=== PATIENT | female | born 1980 | race Caucasian/White ===

== ENCOUNTER 2017-08-05 12:35 | Emergency (ER) | payer MEDICAID, SELFPAY ==
[2017-08-05 13:21] VITALS: BP 113/76; PULSE 85; RESP 18; TEMP 36.9; O2SAT 100; BMI 22.8
--- NOTE | 2017-08-05 13:27 | HMH.EDUTC ---
[facility] [place]ression: Sinusitis Qualifiers: Sinusitis location: other Chronicity: unspecified Qualified Code(s): J32.9 - Chronic sinusitis, unspecified Disposition: Home, Self-Care Condition on Discharge: Good Instructions: Sinusitis, Sinus Headache, DI for Sinusitis Additional Instructions: Start antibiotic. Sinus infections may take 2-3 days to notice much improvement so be sure to use conservative measures as discussed for symptoms Flonase 2 spray in each nostril daily to help with nasal congestion, sinus an ear pressure/inflammation Lots of Fluids Sleep elevated Humidifer/vaporizer Augmentin can cause GI effects. Probiotics may help to prevent these symptoms Prescriptions: Amoxicillin/Potassium Clav [Augmentin 875-125 Tablet] 1 tab PO Q12H #14 tab Dextromethorphan Polistirex [Delsym] 10 mg PO Q12 PRN #200 [place].er.12h PRN Reason: Cough Fluticasone Propionate [Flonase 50mcg nasal spray 16gm] 2 spr NS DAILY #1 bottle predniSONE [Prednisone 20mg Tab] 20 mg PO BID #10 tab Referrals: Elton Silva MD [Primary Care Provider] - Time of Disposition: 13:42 Medical Decision Making Vital Signs: 08/05/17 13:21 Temperature 98.5 F Temperature Source Temporal Artery Scan Pulse Rate [Right Radial] 85 Respiratory Rate 18 Blood Pressure [Right Arm] 113/76 Blood Pressure Mean [Right Arm] 88 Blood Pressure Source [Right Arm] Automatic Cuff Blood Pressure Position [Right Arm] Sitting 02 Sat by Pulse Oximetry 100 Oxygen Delivery Method Room Air - Tc Inquiry Pt receiving controlled substance: No Tc was queried for this patient: No [facility] [place] - General Stated complaint: possible flu Mode of Arrival: Family Vehicle Source of Information: Patient Limitations: No Limitations Description of Symptoms (Recalled from Triage Doc. by RN): PT HAS CHEST CONGESTION, COUGH, STOPPED UP NOSE, ACHES FOR 3 DAYS. HEENT Symptoms (Recalled from RN notes): Yes (COUGH,STOPPED UP NOSE) Resp Symptoms (Recalled from RN notes): Yes (CHEST CONGESTION) Skin Symptoms (Recalled from RN notes): No MS Symptoms (Recalled from RN notes): No Functional Status (Recalled from RN notes): NA - History of Present Illness Provider Complaint: Patient states that she has been having cough and sinus pain and pressure State that she is having thick yellow mucous from nose State that she feels swollen and puffy under her eyes State that she had this about a month ago and it got better then it came back and it is worse than it was before - Related Data Home Medications Medication Instructions Recorded Confirmed Vit No.126/Iron/FA 1 mg PO DAILY 08/05/17 08/05/17 [Classic Tablet] Previous Rx's Medication Instructions Recorded Amoxicillin/Potassium Clav 1 tab PO Q12H #14 tab 08/05/17 [Augmentin 875-125 Tablet] Dextromethorphan Polistirex 10 mg PO Q12 PRN #200 [place].er.12h 08/05/17 [Delsym] Fluticasone Propionate [Flonase 2 spr NS DAILY #1 bottle 08/05/17 50mcg nasal spray 16gm] predniSONE [Prednisone 20mg 20 mg PO BID #10 tab 08/05/17 Tab] Allergies Allergy/AdvReac Type Severity Reaction Status Date / Time No Known Allergies Allergy Verified 08/05/17 13:25 - Worker's Comp Is this a Worker's Comp case?: No [facility] History I have reviewed the patient's past medical history: Yes Medical History: Denies:: Cancer, MRSA Amputation: No - *Social History Smoking Status: Current every day smoker Tobacco Type: cigarettes Alcohol Intake: never - Psychiatric History Expresses thoughts of harming self/others: None Suicide Plan Description: No Plan ROS Obtained: Yes All systems reviewed & no additional complaints - Constitutional Constitutional: Reports chills - ENT Ears, Nose, Mouth, and Throat: Reports sinus pain, Reports sinus pressure - Respiratory Respiratory: Yes cough Physical Exam - General General appearance: alert, in no apparent distress - Expande
[2017-08-05 13:30] LABS: UTC Influenza A Antigen Negative (Negative); UTC Influenza B Antigen Negative (Negative)
--- NOTE | 2017-08-05 13:37 | ED_ITS ---
[facility] [place] Disposition Clinical Impression: Sinusitis Qualifiers: Sinusitis location: other Chronicity: unspecified Qualified Code(s): J32.9 - Chronic sinusitis, unspecified Disposition: Home, Self-Care Condition on Discharge: Good Instructions: Sinusitis, Sinus Headache, DI for Sinusitis Additional Instructions: Start antibiotic. Sinus infections may take 2-3 days to notice much improvement so be sure to use conservative measures as discussed for symptoms Flonase 2 spray in each nostril daily to help with nasal congestion, sinus an ear pressure/inflammation Lots of Fluids Sleep elevated Humidifer/vaporizer Augmentin can cause GI effects. Probiotics may help to prevent these symptoms Prescriptions: Amoxicillin/Potassium Clav [Augmentin 875-125 Tablet] 1 tab PO Q12H #14 tab Dextromethorphan Polistirex [Delsym] 10 mg PO Q12 PRN #200 [place].er.12h PRN Reason: Cough Fluticasone Propionate [Flonase 50mcg nasal spray 16gm] 2 spr NS DAILY #1 bottle predniSONE [Prednisone 20mg Tab] 20 mg PO BID #10 tab Referrals: Elton Silva MD [Primary Care Provider] - Time of Disposition: 13:42 Medical Decision Making Vital Signs: 08/05/17 13:21 Temperature 98.5 F Temperature Source Temporal Artery Scan Pulse Rate [Right Radial] 85 Respiratory Rate 18 Blood Pressure [Right Arm] 113/76 Blood Pressure Mean [Right Arm] 88 Blood Pressure Source [Right Arm] Automatic Cuff Blood Pressure Position [Right Arm] Sitting 02 Sat by Pulse Oximetry 100 Oxygen Delivery Method Room Air - Tc Inquiry Pt receiving controlled substance: No Tc was queried for this patient: No [facility] [place] HPI - General Stated complaint: possible flu Mode of Arrival: Family Vehicle Source of Information: Patient Limitations: No Limitations Description of Symptoms (Recalled from Triage Doc. by RN): PT HAS CHEST CONGESTION, COUGH, STOPPED UP NOSE, ACHES FOR 3 DAYS. HEENT Symptoms (Recalled from RN notes): Yes (COUGH,STOPPED UP NOSE) Resp Symptoms (Recalled from RN notes): Yes (CHEST CONGESTION) Skin Symptoms (Recalled from RN notes): No MS Symptoms (Recalled from RN notes): No Functional Status (Recalled from RN notes): NA - History of Present Illness Provider Complaint: Patient states that she has been having cough and sinus pain and pressure State that she is having thick yellow mucous from nose State that she feels swollen and puffy under her eyes State that she had this about a month ago and it got better then it came back and it is worse than it was before - Related Data Home Medications Medication Instructions Recorded Confirmed Vit No.126/Iron/FA 1 mg PO DAILY 08/05/17 08/05/17 [Classic Tablet] Previous Rx's Medication Instructions Recorded Amoxicillin/Potassium Clav 1 tab PO Q12H #14 tab 08/05/17 [Augmentin 875-125 Tablet] Dextromethorphan Polistirex 10 mg PO Q12 PRN #200 [place].er.12h 08/05/17 [Delsym] Fluticasone Propionate [Flonase 2 spr NS DAILY #1 bottle 08/05/17 50mcg nasal spray 16gm] predniSONE [Prednisone 20mg 20 mg PO BID #10 tab 08/05/17 Tab] Allergies Allergy/AdvReac Type Severity Reaction Status Date / Time No Known Allergies Allergy Verified 08/05/17 13:25 - Worker's Comp Is this a Worker's Comp case?: No H History I have reviewed the
== END 2017-08-05 13:56 | disposition home or self-care (01) ==
PROVIDERS: Emergency Provider Nurse Practitioner; Family Provider Family Medicine; PCP Internal Medicine Adolescent Medicine
DX: J32.9 Chronic sinusitis, unspecified (principal)
CPT/HCPCS: 87804; 99202

== ENCOUNTER → 2017-08-16 15:08 | Outpatient (REF) | payer MEDICAID, SELFPAY ==
[2017-08-16 17:41] LABS: Basophils % 0.4 % (0.1-2.0); Eosinophils # 0.2 K/mm3 (0.0-0.4); Eosinophils % 2.3 % (0.1-12.0); Hematocrit 44.3 % (37.0-47.0); Hemoglobin 13.8 g/dL (12.2-16.2); Lymphocytes # 2.2 K/mm3 (0.7-4.5); Lymphocytes % 25.6 K/mm3 (10-50); Mean Corpuscular HGB Conc 31.1 g/dL (31.8-35.4); Mean Corpuscular Volume 102.8 fl (81-99); Mean Platelet Volume 7.9 fl (7.4-10.4); Monocytes # 0.3 K/mm3 (0.1-1.0); Monocytes % 3.9 % (1.7-9.3); Neutrophils # 5.8 K/mm3 (1.8-7.8); Neutrophils % 67.8 % (37.0-80.0); Platelet Count 305 K/mm3 (142-424); Red Blood Count 4.31 M/mm3 (4.20-5.40); Red Cell Distribution Width 13.1 % (11.5-17.5); White Blood Count 8.6 K/mm3 (4.8-10.8)
[2017-08-16 18:10] LABS: Alanine Aminotransferase 31 U/L (12-78); Albumin Level 3.5 gm/dL (3.4-5.0); Albumin/Globulin Ratio 1.1 (1.1-1.8); Alkaline Phosphatase 73 U/L (46-116); Anion Gap 10.9 mEq/L (5-15); Aspartate Amino Transferase 15 U/L (15-37); Bilirubin,Total 0.3 mg/dL (0.2-1.0); Blood Urea Nitrogen 11 mg/dL (7-18); Calcium 8.5 mg/dL (8.5-10.1); Carbon Dioxide 29 mmol/L (21.0-32.0); Chloride 104 mmol/L (98-107); Chol/HDL Ratio 3.3 (1-3.5); Cholesterol 182 mg/dL (140-200); Creatinine,Serum 0.67 mg/dL (0.55-1.02); Estimated Glomerular Filt Rate 99 ml/min (>60); GFR (African American) 120 ML/MIN (>60); Globulin 3.1 gm/dl (1.3-3.2); Glucose 90 mg/dL (74-106); HDL Cholesterol 55 mg/dL (29-89); LDL Cholesterol 104 mg/dL (0-130); Potassium 4.9 mmoL/L (3.5-5.1); Sodium 139 mmol/L (136-145); Thyroid Stimulating Hormone 0.54 uIU/ml (0.358-3.740); Total Protein,Serum 6.6 gm/dL (6.4-8.2); Triglycerides 116 mg/dL (30-200); VLDL Cholesterol 23 mg/dL (0-40)
[2017-08-16 18:53] LABS: Hemoglobin A1C 5.5 % (0.0-7.0)
[2017-08-19 18:09] LABS: Vitamin D 25 Hydroxy 17.9 ng/mL (30.0-100.0)
== END ==
LOC: LAB 15:08
PROVIDERS: Visit Provider Nurse Practitioner Family
DX: R53.83 Other fatigue (principal); M54.5 Low back pain; R05 Cough
CPT/HCPCS: 80053; 80061; 82652; 83036; 84439; 84443; 85025

== ENCOUNTER 2017-08-23 10:10 | Outpatient (RCR) | payer MEDICAID, SELFPAY | END 2017-08-23 10:11 | disposition home or self-care (01) | LOC: PT 10:10 | PROVIDERS: Family Provider Family Medicine; PCP Nurse Practitioner Family; Visit Provider Nurse Practitioner Family | DX: M54.5 Low back pain (principal) ==

== ENCOUNTER → 2017-08-23 11:24 | Outpatient (CLI) | payer MEDICAID, SELFPAY ==
--- NOTE | 2017-08-23 11:27 | XR_ITS ---
XR lumbar spine min 4V Ordering Physician: Gabriela HAYS Sis Patient Age: 36 years: Female HISTORY: ITS.REASON: back pain Low back pain no injury. TECHNIQUE: 5 view lumbar spine series COMPARISON Previous lumbar spine series May 2010 FINDINGS comparison to Previous study show no interval change the vertebral bodies are in tact and the disc spaces are well-maintained. Pedicles transverse processes SI joints unremarkable. The neural foramen and facets satisfactory. Generous stool throughout the low-lying cecum and right colon. There are some small A few Punctate calcification project over the right kidney. Initially question tiny renal calculi but these seem to change position relative to the kidney and this could be within overlying clothing. However it may be with checking urine for blood. If significant pain consider CT to evaluate for renal calculi.. None of these measure over 2 mm size. There are least 3 or 4 seen at the mid right kidney. Could not exclude related to overlying clothing IMPRESSION: Lumbar spine itself intact.. With No significant change since 2009 Tiny punctate calculi project over the midportion right kidney. Suggest checking urine for hematuria If significant pain persist consider CT without contrast to evaluate for possible renal calculi.
== END ==
PROVIDERS: PCP Emergency Medicine; Visit Provider Nurse Practitioner Family
DX: M54.5 Low back pain (principal)
CPT/HCPCS: 72110

== ENCOUNTER → 2017-08-30 18:36 | Outpatient (CLI) | payer MEDICAID, SELFPAY ==
[2017-08-30 18:39] LABS: Microscopic, Urine URINE MICROSCOPIC (MICROSCOPIC)
[2017-08-30 18:55] LABS: Appearance,Urine CLOUDY (Clear); Bilirubin,Urine Negative (Negative); Blood, Urine Negative (Negative); Color,Urine YELLOW (Yellow); Glucose,Urine (UA) Negative (Negative); Ketones,Urine Negative (Negative); Leukocyte Esterase,Urine 2+ (Negative); Nitrate,Urine Negative (Negative); Protein,Urine TRACE (Negative)
[2017-08-30 19:03] LABS: Amorphous Sediment,Urine 2+ /lpf; Mucus,Urine 2+ /lpf; WBC,Urine 20-50 #/hpf (0-3)
== END ==
PROVIDERS: PCP Emergency Medicine; Visit Provider Nurse Practitioner Family
DX: R31.9 Hematuria, unspecified (principal); N20.0 Calculus of kidney
CPT/HCPCS: 81001; 87086

== ENCOUNTER → 2017-09-13 15:40 | Outpatient (CLI) | payer MEDICAID, SELFPAY ==
--- NOTE | 2017-09-13 15:41 | CT_ITS ---
CT sinus wo con CLINICAL INDICATION: Chronic maxillary sinusitis ORDERING PHYSICIAN: Ilya Larose MD PATIENT AGE: 36 years COMPARISON: None TECHNIQUE:Axial, sagittal, and coronal images are generated and reviewed without contrast FINDINGS: There is a retention cyst in the right maxillary sinus inferiorly at 13 x 9 mm. There is minimal mucosal thickening involving the left maxillary sinus inferiorly at 3 mm. No sinus air-fluid level. There is mild mucosal thickening of the posterior aspect of the right ethmoid sinus and the lateral and anterior aspect of the left sphenoid sinus. The ostiomeatal units are patent. There is severe rightward nasal septal deviation narrowing of the right nasal canal The nasopharynx, TMJs, mastoid sinuses, and orbits have an unremarkable appearance. IMPRESSION: 1. Mild chronic sinus disease 2. Severe rightward nasal septal deviation
--- NOTE | 2017-09-13 15:41 | CT_ITS ---
CT abdomen pelvis wo con CLINICAL INDICATION: Flank pain, history of kidney stones ORDERING PHYSICIAN: Ilya Larose MD PATIENT AGE: 36 years COMPARISON: None TECHNIQUE: Axial images obtained with sagittal and coronal reformats. PROCEDURE: Oral Contrast: None IV Contrast: None . FINDINGS: Lung bases are clear aside from a calcified granuloma in the right lower lobe. Liver, gallbladder, spleen, adrenal glands, and pancreas are unremarkable. There is mild distention of the stomach filled with underlying food and/or secretions There are multiple punctate right renal calculi the largest in the mid polar region at 3 mm. No obstructing renal or ureteral calculi evident. Urinary bladder has an unremarkable appearance. No intestinal obstruction or free air. No evidence of appendicitis or diverticulitis. No focal inflammatory change or mass evident within the pelvis. Isodensity is present in the right adnexal region at 3 cm suggested in the right ovarian cyst. This may be confirmed with ultrasound if clinically warranted. No acute bony anomalies. IMPRESSION: 1. Nonobstructing right nephrolithiasis. 2. Possible 3 cm right ovarian cyst
== END ==
PROVIDERS: Family Provider Family Medicine; PCP Emergency Medicine; Visit Provider Otolaryngology
DX: J32.0 Chronic maxillary sinusitis (principal); N20.0 Calculus of kidney
CPT/HCPCS: 70486; 74176

== ENCOUNTER → 2017-09-20 15:25 | Outpatient (CLI) | payer MEDICAID, SELFPAY ==
[2017-09-20 18:52] LABS: Amphetamine/Metha Screen,Urine Negative ng/mL (<1000); Barbiturates Screen,Urine Negative ng/mL (<200); Benzodiazepines Screen,Urine Positive ng/mL (200); Cannabinoid Screen,Urine Positive ng/mL (<50); Cocaine Screen,Urine Negative ng/g (<300); Methadone Screen,Urine Negative ng/mL (<300); Opiate Screen,Urine Negative ng/mL (<300); Phencyclidine Screen,Urine Negative ng/mL (<25)
== END ==
PROVIDERS: Visit Provider Nurse Practitioner Family
DX: Z79.899 Other long term (current) drug therapy (principal)
CPT/HCPCS: 80305

== ENCOUNTER → 2019-03-25 12:30 | Outpatient (CLI) | payer MEDICAID, SELFPAY ==
--- NOTE | 2019-03-25 12:36 | XR_ITS ---
PROCEDURE: XR MULTIPLE SPINE 6+V CLINICAL INDICATION: pain COMPARISON: No exams were available for comparison FINDINGS: Cervical spine: AP lateral open-mouth and oblique views are obtained showing normal alignment. No fracture or dislocation. No significant degenerative change. Thoracic spine: Minimal thoracic curvature convex left. No acute fracture or dislocation. No lytic or blastic change. Lumbar spine: Normal alignment. AP lateral and oblique views are obtained. The disc spaces are well preserved. No fracture or dislocation IMPRESSION: Cervical spine: Negative Thoracic spine: No acute finding. Minimal curvature convex left Lumbar spine: Negative Dictated by: Young Noel MD 03/25/2019 17:18 <Electronically signed by Young Noel MD in [place]> 03/25/2019 17:18
== END ==
PROVIDERS: PCP Emergency Medicine; Visit Provider Nurse Practitioner Family
DX: M54.2 Cervicalgia (principal); M54.6 Pain in thoracic spine; M54.5 Low back pain
CPT/HCPCS: 72084

== ENCOUNTER → 2019-04-09 07:35 | Outpatient (CLI) | payer MEDICAID, SELFPAY ==
--- NOTE | 2019-04-09 07:36 | US_ITS ---
PROCEDURE: US GALLBLADDER CLINICAL INDICATION: n/v Nausea vomiting, right upper quadrant pain COMPARISON: No exams were available for comparison FINDINGS: Pancreas: Unremarkable/Not well seen Liver: Unremarkable. There is appropriate direction of blood flow within a non dilated portal vein. Right kidney: Unremarkable appearing. No hydronephrosis. Gallbladder: No stones are evident. There is no gallbladder wall thickening. Common duct is normal in diameter. Layering gallbladder sludge is present IMPRESSION: Layering gallbladder sludge otherwise negative right upper quadrant ultrasound Dictated by: Young Noel MD 04/09/2019 16:04 Electronically signed by Young Noel MD in [place] 04/09/2019 16:04
== END ==
PROVIDERS: PCP Nurse Practitioner Family; Visit Provider Nurse Practitioner Family
DX: K82.8 Other specified diseases of gallbladder (principal); R10.9 Unspecified abdominal pain; R11.2 Nausea with vomiting, unspecified
CPT/HCPCS: 76705

== ENCOUNTER → 2019-04-21 10:08 | Outpatient (CLI) | payer MEDICAID, SELFPAY ==
--- NOTE | 2019-04-21 10:10 | NM_ITS ---
PROCEDURE: NM HEPATOBILIARY W PHARM CLINICAL INDICATION: RUQ pain COMPARISON: No exams were available for comparison TECHNIQUE: DOSE: 8 millicuries of technetium Choletec FINDINGS: Homogeneous activity is present within the hepatic parenchyma. Activity is present in the gallbladder by . Activity is present in the small bowel by 10 minutes. 10 minutes.. The gallbladder ejection fraction is calculated to be 93 percent. CCK-The patient did not report pain or other symptoms during CCK infusion. IMPRESSION: Normal exam. Normal ejection fraction and no cystic duct obstruction. Dictated by: Alvin Garnica 04/21/2019 12:47 Electronically signed by Alvin Garnica in [place] 04/21/2019 12:47
--- NOTE | 2019-04-21 11:00 | HMH.ITSHM ---
Current Home Medications as stated by this patient Elena Fang or registered representative. []TIZANIDINE ODANSETRON BENTYL PHENERGAN
== END ==
PROVIDERS: PCP Nurse Practitioner Family; Visit Provider Nurse Practitioner Family
DX: K82.8 Other specified diseases of gallbladder (principal); R10.11 Right upper quadrant pain
CPT/HCPCS: 78227; A9537; J2805

== ENCOUNTER 2019-10-30 10:40 | Emergency (ER) | payer MEDICAID, SELFPAY ==
[2019-10-30 11:00] VITALS: BP 105/53; PULSE 66; RESP 20; TEMP 36.6; O2SAT 99; BMI 26.2
--- NOTE | 2019-10-30 11:06 | XR_ITS ---
PROCEDURE: XR CHEST 2V CLINICAL HISTORY: COUGH COMPARISON: CXR2V XR chest 2V from 12/12/2017 FINDINGS: The cardiomediastinal silhouette and pulmonary vascularity are within normal limits. The lungs are clear without infiltrates, suspicious nodules, or pleural effusions. No acute bony abnormalities. IMPRESSION: No acute findings. Dictated by: Young Noel MD 10/30/2019 12:28 Electronically signed by Young Noel MD in [place] 10/30/2019 12:28
--- NOTE | 2019-10-30 11:14 | HMH.EDUTC ---
[facility] [place]ression: Viral illness Disposition: Home, Self-Care Condition on Discharge: Good Instructions: Preventing the Spread of Coronavirus Discharge Instructions Additional Instructions: We have tested you for the coronavirus. These labs can sometimes take several days for results. Until your results have come back, you must quarantine yourself at home. This means you cannot go to work and cannot leave your house until we get those results back. We will call you as soon as those results come back to us. Referrals: Gabriela Alegre APRN [Primary Care Provider] - Forms: Work/School Release Time of Disposition: 12:17 Medical Decision Making - Tc Inquiry Pt receiving controlled substance: No Vital Signs: 10/30/19 11:00 Temperature 97.8 F Temperature Source Oral Pulse Rate [Left Brachial] 66 Respiratory Rate 20 Blood Pressure [Left Arm] 105/53 L Blood Pressure Mean [Left Arm] 70 Blood Pressure Source [Left Arm] Automatic Cuff Blood Pressure Position [Left Arm] Sitting 02 Sat by Pulse Oximetry 99 Oxygen Delivery Method Room Air - Lab Data Lab results reviewed: Yes: I reviewed the patient's lab results. Lab Results 10/30/19 11:07: WBC 4.6 L, RBC 4.07 L, Hgb 13.5, Hct 42.5, MCV 104.4 H, MCH 33.1 H, MCHC 31.7 L, RDW 13.4, Plt Count 213, MPV 7.6, Neut % (Auto) 63.3, Lymph % (Auto) 29.2, [place] % (Auto) 3.7, Eos % (Auto) 3.3, Baso % (Auto) 0.4, Neut # (Auto) 2.9, Lymph # (Auto) 1.3, [place] # (Auto) 0.2, Eos # (Auto) 0.2, Baso # (Auto) 0.0 Result diagrams: 10/30/19 11:07 Orders (Tests/Meds): ORDERS Category Date Time Status XR chest 2V Stat Exams 10/30/19 11:06 Taken SARS-CoV-2, [facility] Stat Lab 10/30/19 11:20 Received - Radiology Data #1 Image(s): [place] [facility] [place] - General Stated complaint: body aches headache Time Seen by Provider: 10/30/19 11:09 Mode of Arrival: Ambulatory Source of Information: Patient Limitations: No Limitations Description of Symptoms (Recalled from Triage Doc. 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 Fever around up to 101. Has been taking Tylenol and Motrin. Has had mild runny nose and sore throat. Denies ear pain. Has had nausea, no vomiting, and started having diarrhea last night. No known COVID19 exposure, but works at a [employer]. Onset (ago): week(s) (1) Relieving factors: none Exacerbating factors: none Associated symptoms: cough, fever/chills, malaise Treatments prior to arrival: NSAID - Related Data Home Medications Medication Instructions Recorded Confirmed Buspirone HCl [Buspar 10mg 20 mg PO BID 10/30/19 10/30/19 tablet] Fluoxetine HCl 40 mg PO DAILY 10/30/19 10/30/19 Quetiapine Fumarate 100 mg PO QHS 10/30/19 10/30/19 Previous Rx's Medication Instructions Recorded Ondansetron [Zofran 4mg ODT] 4 mg PO Q8HP PRN #10 tab.rapdis 10/28/19 Allergies Allergy/AdvReac Type Severity Reaction Status Date / Time No Known Allergies Allergy Verified 09/23/19 12:42 - Worker's Comp Is this a Worker's Comp case?: No [facility] History - Hepatitis A Screen Drug use history?: No High risk sexual behaviors?: No History of sexually transmitted infection?: No Currently employed?: No Childcare worker?: No Do you have indoor plumbing?: Yes Do you have electricity?: Yes Attestation statement:: This patient has been screened for Hepatitis A risk factors. Medical History: Reports:: Anxiety, Depression Denies:: Cancer, Diabetes Mellitus Type 1, Diabetes Mellit
[2019-10-30 11:32] LABS: Basophils % 0.4 % (0.1-2.0); Eosinophils # 0.2 K/mm3 (0.0-0.4); Eosinophils % 3.3 % (0.1-12.0); Hematocrit 42.5 % (37.0-47.0); Hemoglobin 13.5 g/dL (12.2-16.2); Lymphocytes # 1.3 K/mm3 (0.7-4.5); Lymphocytes % 29.2 % (10-50); Mean Corpuscular HGB Conc 31.7 g/dL (31.8-35.4); Mean Corpuscular Hemoglobin 33.1 pg (27.0-31.2); Mean Corpuscular Volume 104.4 fl (81-99); Mean Platelet Volume 7.6 fl (7.4-10.4); Monocytes # 0.2 K/mm3 (0.1-1.0); Monocytes % 3.7 % (1.7-9.3); Neutrophils # 2.9 K/mm3 (1.8-7.8); Neutrophils % 63.3 % (37.0-80.0); Platelet Count 213 K/mm3 (142-424); Red Blood Count 4.07 M/mm3 (4.20-5.40); Red Cell Distribution Width 13.4 % (11.5-17.5); White Blood Count 4.6 K/mm3 (4.8-10.8)
[2019-10-30 12:30] VITALS: BP 105/53; PULSE 66; RESP 20; TEMP 36.6; O2SAT 99
[2019-10-30 19:21] LABS: UTC Influenza A Antigen Negative (Negative); UTC Influenza B Antigen Negative (Negative); UTC Strep Screen (Rapid) Negative (Negative)
[2019-11-01 17:33] LABS: Covid-19 Nasal PCR Sendout Lex NOT DETECTED
--- NOTE | 2019-11-01 18:53 | PC.NURSE ---
1400- PATIENT NOTIFIED OF NEGATIVE COVID-19 RESULTS BY PHONE. [facility]ACE OF [facility]PLOYMENT). 1900- PROVIDER NOTIFIED OF NEGATIVE COVID-19 RESULTS.
== END 2019-10-30 12:35 | disposition home or self-care (01) ==
PROVIDERS: Emergency Provider Physician Assistant; PCP Nurse Practitioner Family
DX: B34.9 Viral infection, unspecified (principal); F41.8 Other specified anxiety disorders; Z79.899 Other long term (current) drug therapy
CPT/HCPCS: 71046; 85025; 87804; 87880; 99202

== ENCOUNTER 2020-03-21 15:31 | Emergency (ER) | payer MEDICAID, SELFPAY ==
[2020-03-21 15:39] VITALS: BP 136/89; PULSE 79; RESP 17; TEMP 36.6; O2SAT 100; BMI 26.6
[2020-03-21 16:16] VITALS: BP 136/89; PULSE 79; RESP 17; TEMP 36.6; O2SAT 100; BMI 26.5
--- NOTE | 2020-03-21 16:33 | HMH.EDUTC ---
[facility] [place]ression: Otitis media Qualifiers: Otitis media type: unspecified Laterality: left Qualified Code(s): H66.92 - Otitis media, unspecified, left ear Disposition: Home, Self-Care Condition on Discharge: Good Instructions: Middle Ear Infection, Middle Ear Infections (Alternative Therapy), Sore Throat, Amoxicillin Additional Instructions: *Monitor Temp, Over the counter Motrin or Tylenol as directed/as needed Tylenol every 4 hours and Motrin every 6 hours (as long as your family doctor has told you that you can take it) for fever or pain. and straight to ER if unable to lower temp less than 101.0 after medication given *Warm salt water gargles may help to soothe the throat *Throat Lozenges *Warm fluids like tea with honey may help to soothe the throat *Sleep elevated *Humidifier/Vaporizer *Flonase 2 sprays in each nostril daily but be aware that it may take 2-3 days before you notice improvement Follow up IMMEDIATELY for new or worsening symptoms or no Noticeable improvement over the next 48-72 hours. 911 for difficulty breathing or swallowing Prescriptions: Amoxicillin [Amoxicillin 500mg Cap] 500 mg PO TID #30 cap Transmission Status: Pending to [facility] Fluticasone Propionate [Flonase 50mcg nasal spray 16gm] 1 spr NS DAILY #1 bottle Transmission Status: Pending to [facility] Referrals: Maicol Owens MD [Primary Care Provider] - As needed Forms: Work/School Release Medical Decision Making - Tc Inquiry Pt receiving controlled substance: No Tc was queried for this patient: No Vital Signs: 03/21/20 15:39 03/21/20 16:16 Temperature 97.8 F 97.8 F Temperature Source Oral Oral Pulse Rate [Left Radial] 79 79 Respiratory Rate 17 17 Blood Pressure [Right Arm] 136/89 136/89 Blood Pressure Mean [Right Arm] 104 104 Blood Pressure Source [Right Arm] Automatic Cuff Automatic Cuff Blood Pressure Position [Right Arm] Sitting Sitting 02 Sat by Pulse Oximetry 100 100 Oxygen Delivery Method Room Air Room Air [facility] [place] - General Stated complaint: left ear, throat Time Seen by Provider: 03/21/20 16:33 Mode of Arrival: Ambulatory Source of Information: Patient Limitations: No Limitations Description of Symptoms (Recalled from Triage Doc. by RN): PATIENT C/O LEFT EAR PAIN X 2 WEEKS HEENT Symptoms (Recalled from RN notes): Yes Resp Symptoms (Recalled from RN notes): No Skin Symptoms (Recalled from RN notes): No MS Symptoms (Recalled from RN notes): No Functional Status (Recalled from RN notes): WNL - History of Present Illness Provider Complaint: Patient state that she has has been having pain in her left ear for about 2 weeks States that she has tried several things over the counter but nothing has helped and today she woke up and her throat was hurting too so she came in - Related Data Home Medications Medication Instructions Recorded Confirmed Buspirone HCl [Buspar 10mg 20 mg PO BID 10/30/19 10/30/19 tablet] Fluoxetine HCl 40 mg PO DAILY 10/30/19 10/30/19 Quetiapine Fumarate 100 mg PO QHS 10/30/19 10/30/19 Previous Rx's Medication Instructions Recorded Ondansetron [Zofran 4mg ODT] 4 mg PO Q8HP PRN #10 tab.rapdis 10/28/19 Amoxicillin [Amoxicillin 500mg 500 mg PO TID #30 cap 03/21/20 Cap] Fluticasone Propionate [Flonase 1 spr NS DAILY #1 bottle 03/21/20 50mcg nasal spray 16gm] Allergies Allergy/AdvReac Type Severity Reaction Status Date / Time No Known Allergies Allergy Verified 09/23/19 12:42 - Worker's Comp Is this a Worker's Comp case?: No [facility] History - Hepatitis A Screen Drug use history?: No High risk sexual behaviors?: No History of sexually transmitted infection?: No Currently employed?: No Childcare worker?: No Do you have indoor plumbing?: Yes Do you have electricity?: Yes Attestation statement:: This patient has been screened for Hepatitis A risk factors. I have reviewed the patient's past
[2020-03-21 16:44] VITALS: BP 136/89; PULSE 79; RESP 17; TEMP 36.6; O2SAT 100
== END 2020-03-21 16:45 | disposition home or self-care (01) ==
PROVIDERS: Emergency Provider Nurse Practitioner; PCP Emergency Medicine
DX: H66.92 Otitis media, unspecified, left ear (principal); F41.8 Other specified anxiety disorders; F17.210 Nicotine dependence, cigarettes, uncomplicated
CPT/HCPCS: 99201

== ENCOUNTER 2020-03-23 15:59 | Emergency (ER) | payer MEDICAID, SELFPAY ==
--- NOTE | 2020-03-23 16:38 | HMH.EDUTC ---
[facility] [place] Impression: Otitis externa Qualifiers: Otitis externa type: unspecified type Chronicity: acute Laterality: left Qualified Code(s): H60.502 - Unspecified acute noninfective otitis externa, left ear Disposition: Home, Self-Care Condition on Discharge: Good Instructions: DI for Otitis Externa Additional Instructions: Use the drops as directed. Continue to take the antibiotics as directed. Follow up with her regular doctor if she is not getting better. GO TO THE ER FOR ANY WORSENING SYMPTOMS OR CONCERNS Prescriptions: Neomycin/Polymyxin B Sulf/Hc [Nynxrupc-Xrgxxprzm-ZK Otic Susp 10mL] 3 drops EAR-LEFT TID 7 Days #1 bottle Transmission Status: Received by [facility] Referrals: Maicol Owens MD [Primary Care Provider] - Forms: Work/School Release Medical Decision Making - Medical Records Medical records reviewed: No: I reviewed the patient's medical records. - Tc Inquiry Pt receiving controlled substance: No Vital Signs: 03/23/20 16:58 03/23/20 17:11 Temperature 97.6 F 97.6 F Temperature Source Oral Oral Pulse Rate 71 Pulse Rate [Left] 71 Respiratory Rate 18 18 Blood Pressure 124/70 Blood Pressure [Right Arm] 124/70 Blood Pressure Mean [Right Arm] 88 Blood Pressure Source [Right Arm] Automatic Cuff Blood Pressure Position [Right Arm] Sitting 02 Sat by Pulse Oximetry 99 Oxygen Delivery Method Room Air [place] [facility] [place] - General Stated complaint: left ear pain Time Seen by Provider: 03/23/20 16:30 - History of Present Illness Provider Complaint: She c/o left ear pain. She has had this pain for the past 6 days or so. She was in here 3 days ago with the same complaint. She states that she was prescribed amoxicillin. She denies any improvment in her symptoms. - Related Data Home Medications Medication Instructions Recorded Confirmed Amoxicillin [Amoxicillin 500mg 500 mg PO TID 03/23/20 03/23/20 Cap] Fluticasone Propionate [Flonase 1 spr NS DAILY 03/23/20 03/23/20 50mcg nasal spray 16gm] Previous Rx's Medication Instructions Recorded Neomycin/Polymyxin B Sulf/Hc 3 drops EAR-LEFT TID 7 Days #1 03/23/20 [Iyfgvjsq-Tiiqmbmki-VM Otic Susp bottle 10mL] Allergies Allergy/AdvReac Type Severity Reaction Status Date / Time No Known Allergies Allergy Verified 09/23/19 12:[address] [facility] History - Hepatitis A Screen Attestation statement:: This patient has been screened for Hepatitis A risk factors. I have reviewed the patient's past medical history: Yes Medical History: Reports:: Anxiety, Depression Denies:: Cancer, Diabetes Mellitus Type 1, Diabetes Mellitus Type 2, Internal Pacemaker, MRSA, Seizures Other Medical History: Denies: Blood Transfusion Reaction Other Surgeries: Yes: No Previous Surgery, Sinus Surgery. No: Pacemaker Amputation: No Fractures: No - Social History Smoking Status: Current every day smoker Tobacco Type: cigarettes # Packs/Day (cigarettes): 1 Alcohol Intake: never Substance Use Type: marijuana Occupational Status: other Housing: house Household Members: significant other, family Comment: -the last time was about a year ago; for heroin and cocaine. -she states that she does still smoke cannabis at times. -she has never shot up before. -just smoking and snorting - Psychiatric History Pschychiatric History:: Reports:: Anxiety, Depression Family Hx:: Cancer, Heart Attack, Stroke, Asthma Comment: Arthritis Comment: #1-2000. #2-2005. #4-2012. #5-2013 ROS Obtained: Yes All systems reviewed & no additional complaints - Constitutional Constitutional: Denies chills, Denies fever(s) - Eyes Eyes: Denies eye discharge - ENT Ears, Nose, Mouth, and Throat: Reports as per HPI - Cardiovascular Cardiovascular: Denies chest pain - Respiratory Respiratory: No chest congestion, No cough Physical Exam - General General appearance: alert, i
[2020-03-23 16:58] VITALS: BP 124/70; PULSE 71; RESP 18; TEMP 36.4; O2SAT 99
[2020-03-23 17:11] VITALS: BP 124/70; PULSE 71; RESP 18; TEMP 36.4; O2SAT 99; BMI 25.8
== END 2020-03-23 17:17 | disposition home or self-care (01) ==
PROVIDERS: Emergency Provider Nurse Practitioner Family; PCP Emergency Medicine
DX: H60.502 Unspecified acute noninfective otitis externa, left ear (principal); F41.8 Other specified anxiety disorders; F17.210 Nicotine dependence, cigarettes, uncomplicated; F12.10 Cannabis abuse, uncomplicated
CPT/HCPCS: 99201

== ENCOUNTER → 2020-05-13 16:21 | Outpatient (CLI) | payer MEDICAID, SELFPAY ==
[2020-05-13 17:16] LABS: Coronavirus 19 IgG Antibody Negative (Negative)
[2020-05-13 17:17] LABS: Coronavirus 19 IgM Antibody Negative (Negative)
== END ==
PROVIDERS: PCP Emergency Medicine; Visit Provider Nurse Practitioner Family
DX: Z03.818 Encounter for observation for suspected exposure to other biological agents ruled out (principal)
CPT/HCPCS: 86328

== ENCOUNTER → 2020-05-18 19:48 | Outpatient (CLI) | payer MEDICAID, SELFPAY ==
[2020-05-18 21:23] LABS: Coronavirus 19 IgG Antibody Negative (Negative); Coronavirus 19 IgM Antibody Negative (Negative)
== END ==
PROVIDERS: PCP Emergency Medicine; Visit Provider Emergency Medicine
DX: Z03.818 Encounter for observation for suspected exposure to other biological agents ruled out (principal)
CPT/HCPCS: 86328

== ENCOUNTER → 2020-05-23 16:59 | Outpatient (CLI) | payer MEDICAID, SELFPAY ==
[2020-05-23 18:32] LABS: Coronavirus 19 IgG Antibody Negative (Negative); Coronavirus 19 IgM Antibody Negative (Negative)
== END ==
PROVIDERS: PCP Emergency Medicine; Visit Provider Emergency Medicine
DX: Z03.818 Encounter for observation for suspected exposure to other biological agents ruled out (principal)
CPT/HCPCS: 36415; 86328

== ENCOUNTER → 2020-05-31 17:34 | Outpatient (CLI) | payer MEDICAID, SELFPAY ==
[2020-05-31 18:49] LABS: Coronavirus 19 IgG Antibody Negative (Negative); Coronavirus 19 IgM Antibody Negative (Negative)
== END ==
PROVIDERS: PCP Emergency Medicine; Visit Provider Emergency Medicine
DX: Z03.818 Encounter for observation for suspected exposure to other biological agents ruled out (principal)
CPT/HCPCS: 36415; 86328

== ENCOUNTER → 2020-06-07 14:04 | Outpatient (CLI) | payer MEDICAID, SELFPAY ==
[2020-06-07 17:51] LABS: Coronavirus 19 IgG Antibody Negative (Negative); Coronavirus 19 IgM Antibody Negative (Negative)
== END ==
PROVIDERS: PCP Emergency Medicine; Visit Provider Emergency Medicine
DX: Z03.818 Encounter for observation for suspected exposure to other biological agents ruled out (principal)
CPT/HCPCS: 36415; 86328

== ENCOUNTER → 2020-06-14 12:02 | Outpatient (CLI) | payer MEDICAID, SELFPAY ==
[2020-06-14 15:35] LABS: Coronavirus 19 IgG Antibody Negative (Negative); Coronavirus 19 IgM Antibody Negative (Negative)
== END ==
PROVIDERS: PCP Emergency Medicine; Visit Provider Emergency Medicine
DX: Z03.818 Encounter for observation for suspected exposure to other biological agents ruled out (principal)
CPT/HCPCS: 86328

== ENCOUNTER → 2020-06-22 20:46 | Outpatient (CLI) | payer MEDICAID, SELFPAY ==
[2020-06-24 09:20] LABS: Coronavirus 19 IgG Antibody Negative (Negative); Coronavirus 19 IgM Antibody Negative (Negative)
== END ==
PROVIDERS: PCP Emergency Medicine; Visit Provider Emergency Medicine
DX: Z03.818 Encounter for observation for suspected exposure to other biological agents ruled out (principal)
CPT/HCPCS: 86328

== ENCOUNTER → 2020-06-28 16:55 | Outpatient (CLI) | payer MEDICAID, SELFPAY ==
[2020-06-28 18:02] LABS: Coronavirus 19 IgG Antibody Negative (Negative); Coronavirus 19 IgM Antibody Negative (Negative)
== END ==
PROVIDERS: PCP Emergency Medicine; Visit Provider Emergency Medicine
DX: Z03.818 Encounter for observation for suspected exposure to other biological agents ruled out (principal); Z01.84 Encounter for antibody response examination
CPT/HCPCS: 86328

== ENCOUNTER → 2020-07-06 21:19 | Outpatient (CLI) | payer MEDICAID, SELFPAY ==
[2020-07-06 22:33] LABS: Coronavirus 19 IgG Antibody Negative (Negative); Coronavirus 19 IgM Antibody Negative (Negative)
== END ==
PROVIDERS: PCP Emergency Medicine; Visit Provider Emergency Medicine
DX: Z03.818 Encounter for observation for suspected exposure to other biological agents ruled out (principal)
CPT/HCPCS: 86328

== ENCOUNTER → 2020-07-19 14:49 | Outpatient (CLI) | payer MEDICAID, SELFPAY ==
[2020-07-19 16:33] LABS: Coronavirus 19 IgG Antibody Negative (Negative); Coronavirus 19 IgM Antibody Negative (Negative)
== END ==
PROVIDERS: PCP Emergency Medicine; Visit Provider Emergency Medicine
DX: Z03.818 Encounter for observation for suspected exposure to other biological agents ruled out (principal)
CPT/HCPCS: 86328

== ENCOUNTER → 2020-08-05 16:51 | Outpatient (CLI) | payer MEDICAID, SELFPAY ==
[2020-08-05 18:58] LABS: Coronavirus 19 IgG Antibody Negative (Negative); Coronavirus 19 IgM Antibody Negative (Negative)
== END ==
PROVIDERS: PCP Emergency Medicine; Visit Provider Emergency Medicine
DX: Z20.822 Contact with and (suspected) exposure to COVID-19 (principal)
CPT/HCPCS: 86328

== ENCOUNTER → 2020-08-18 15:37 | Outpatient (CLI) | payer MEDICAID, SELFPAY ==
[2020-08-18 17:46] LABS: Coronavirus 19 IgG Antibody Negative (Negative); Coronavirus 19 IgM Antibody Negative (Negative)
== END ==
PROVIDERS: PCP Emergency Medicine; Visit Provider Emergency Medicine
DX: Z20.822 Contact with and (suspected) exposure to COVID-19 (principal)
CPT/HCPCS: 36415; 86328

== ENCOUNTER → 2020-08-28 13:07 | Outpatient (CLI) | payer MEDICAID, SELFPAY ==
[2020-08-28 14:08] LABS: Coronavirus 19 IgG Antibody Positive (Negative); Coronavirus 19 IgM Antibody Negative (Negative)
== END ==
PROVIDERS: PCP Emergency Medicine; Visit Provider Emergency Medicine
DX: Z20.822 Contact with and (suspected) exposure to COVID-19 (principal); Z86.16 Personal history of COVID-19
CPT/HCPCS: 36415; 86328

== ENCOUNTER → 2022-05-16 14:34 | Outpatient (CLI) | payer MEDICAID, SELFPAY ==
[2022-05-16 18:31] LABS: Basophils % 0.6 % (0.1-2.0); Eosinophils # 0.2 K/mm3 (0.0-0.4); Eosinophils % 2.8 % (0.1-12.0); Hematocrit 47.2 % (37.0-47.0); Hemoglobin 15.1 g/dL (12.2-16.2); Lymphocytes # 1.9 K/mm3 (0.7-4.5); Lymphocytes % 31.1 % (10-50); Mean Corpuscular Hemoglobin 33.3 pg (27.0-31.2); Mean Corpuscular Volume 104.1 fl (81-99); Mean Platelet Volume 8.8 fl (7.4-10.4); Monocytes # 0.2 K/mm3 (0.1-1.0); Monocytes % 3.4 % (1.7-9.3); Neutrophils # 3.7 K/mm3 (1.8-7.8); Neutrophils % 62.1 % (37.0-80.0); Platelet Count 288 K/mm3 (142-424); Red Blood Count 4.54 M/mm3 (4.20-5.40); Red Cell Distribution Width 13.3 % (11.5-17.5)
[2022-05-16 19:21] LABS: Alanine Aminotransferase 14 U/L (12-78); Albumin Level 4.4 g/dl (3.5-5.0); Albumin/Globulin Ratio 1.5 (1.1-1.8); Alkaline Phosphatase 99 U/L (38-126); Anion Gap 15.3 mEq/L (5-15); Aspartate Amino Transferase 20 U/L (14-36); Bilirubin,Total 0.3 mg/dl (0.2-1.3); Blood Urea Nitrogen 9 mg/dl (7-17); Calcium 9.5 mg/dl (8.4-10.2); Carbon Dioxide 29 mmol/L (22.0-30.0); Chloride 100 mmol/L (98-107); Chol/HDL Ratio 4.6 (1-3.5); Cholesterol 225 mg/dl (140-200); Estimated Glomerular Filt Rate 79 ml/min (>60); GFR (African American) 95 ML/MIN (>60); Globulin 2.9 g/dL (1.3-3.2); Glucose 93 mg/dl (74-100); HDL Cholesterol 49 mg/dl (40-60); Potassium 5.3 mmoL/L (3.5-5.1); Sodium 139 mmol/L (136-145); Total Protein,Serum 7.3 g/dl (6.3-8.2); Triglycerides 125 mg/dl (30-150); VLDL Cholesterol 25 mg/dL (0-40)
[2022-05-16 19:52] LABS: Thyroid Stimulating Hormone 0.42 uIU/mL (0.465-4.68)
[2022-05-16 20:00] LABS: 25-OH Vitamin D, Total < 12.8 ng/mL (30-100)
[2022-05-16 21:07] LABS: Direct LDL Cholesterol 143.65 mg/dL (100-129)
== END ==
PROVIDERS: PCP Nurse Practitioner Family; Visit Provider Nurse Practitioner Family
DX: I10 Essential (primary) hypertension (principal); R53.83 Other fatigue; E55.9 Vitamin D deficiency, unspecified
CPT/HCPCS: 80053; 80061; 82306; 84443; 85025

== ENCOUNTER → 2022-10-05 22:40 | Outpatient (CLI) | payer MEDICAID, SELFPAY ==
[2022-10-05 18:34] LABS: Basophils # 0.1 K/mm3 (0-0.2); Basophils % 0.7 % (0.1-2.0); Eosinophils # 0.2 K/mm3 (0.0-0.4); Eosinophils % 2.8 % (0.1-12.0); Hematocrit 42.1 % (37.0-47.0); Hemoglobin 14.3 g/dL (12.2-16.2); Lymphocytes # 1.8 K/mm3 (0.7-4.5); Lymphocytes % 26.1 % (10-50); Mean Corpuscular HGB Conc 33.9 g/dL (31.8-35.4); Mean Corpuscular Hemoglobin 33.1 pg (27.0-31.2); Mean Corpuscular Volume 97.6 fl (81-99); Mean Platelet Volume 8.3 fl (7.4-10.4); Monocytes # 0.3 K/mm3 (0.1-1.0); Monocytes % 3.5 % (1.7-9.3); Neutrophils # 4.7 K/mm3 (1.8-7.8); Neutrophils % 66.9 % (37.0-80.0); Platelet Count 321 K/mm3 (142-424); Red Blood Count 4.32 M/mm3 (4.20-5.40); Red Cell Distribution Width 13.2 % (11.5-17.5)
[2022-10-05 18:46] LABS: Alanine Aminotransferase 12 U/L (12-78); Albumin Level 4.7 g/dl (3.5-5.0); Albumin/Globulin Ratio 1.6 (1.1-1.8); Alkaline Phosphatase 78 U/L (38-126); Aspartate Amino Transferase 19 U/L (14-36); Bilirubin,Total 0.3 mg/dl (0.2-1.3); Blood Urea Nitrogen 17 mg/dl (7-17); Calcium 9.3 mg/dl (8.4-10.2); Carbon Dioxide 26 mmol/L (22.0-30.0); Chloride 101 mmol/L (98-107); Chol/HDL Ratio 4.3 (1-3.5); Cholesterol 235 mg/dl (140-200); Estimated Glomerular Filt Rate 79 ml/min (>60); GFR (African American) 95 ML/MIN (>60); Globulin 2.9 g/dL (1.3-3.2); Glucose 83 mg/dl (74-100); HDL Cholesterol 55 mg/dl (40-60); Sodium 139 mmol/L (136-145); Total Protein,Serum 7.6 g/dl (6.3-8.2); Triglycerides 183 mg/dl (30-150); VLDL Cholesterol 37 mg/dL (0-40)
[2022-10-05 18:59] LABS: Direct LDL Cholesterol 148.24 mg/dL (100-129)
[2022-10-05 19:01] LABS: 25-OH Vitamin D, Total 33.7 ng/mL (30-100)
[2022-10-05 19:17] LABS: Thyroid Stimulating Hormone 0.77 uIU/mL (0.465-4.68)
[2022-10-11 02:11] LABS: ALT (SGPT) P5P 11 IU/L (0-40); Alpha 2-Macroglobulins, Qn 196 mg/dL (110-276); Apolipoprotein A-1 135 mg/dL (116-209); Bilirubin, Total <0.1 mg/dL (0.0-1.2); Fibrosis Score 0.03 (0.00-0.21); GGT 11 IU/L (0-60); Haptoglobin 155 mg/dL (42-296); Necroinflammat Activity Grade A0-No activity (.); Necroinflammat Activity Score 0.02 (0.00-0.17)
[2022-10-11 23:46] LABS: HIV Screen 4th Generation wRfx NON REACTIVE; Hep A Ab, Total NEGATIVE; Hep B Core Ab, Total NEGATIVE; Hep B Surface Ab, Qual NEGATIVE; Hepatitis B Surface Antigen NON REACTIVE
[2022-10-11 23:47] LABS: Hepatitis C Antibody NON REACTIVE
== END ==
PROVIDERS: PCP Nurse Practitioner Family; Visit Provider Nurse Practitioner Family
DX: R07.9 Chest pain, unspecified (principal); R06.09 Other forms of dyspnea; R53.83 Other fatigue; B34.9 Viral infection, unspecified; I10 Essential (primary) hypertension; Z11.4 Encounter for screening for human immunodeficiency virus [HIV]
CPT/HCPCS: 80053; 80061; 81596; 82306; 84443; 85025; 86703; 86704; 86706; 86708; 87340; 87380; 87522; G0432

== ENCOUNTER → 2022-10-24 15:09 | Outpatient (CLI) | payer MEDICAID, SELFPAY ==
[2022-10-24 15:35] LABS: Basophils % 0.7 % (0.1-2.0); Eosinophils # 0.1 K/mm3 (0.0-0.4); Eosinophils % 2.1 % (0.1-12.0); Hematocrit 42.4 % (37.0-47.0); Hemoglobin 13.5 g/dL (12.2-16.2); Lymphocytes % 31.1 % (10-50); Mean Corpuscular HGB Conc 31.8 g/dL (31.8-35.4); Mean Corpuscular Hemoglobin 32.8 pg (27.0-31.2); Mean Corpuscular Volume 103.3 fl (81-99); Mean Platelet Volume 7.6 fl (7.4-10.4); Monocytes # 0.2 K/mm3 (0.1-1.0); Monocytes % 3.5 % (1.7-9.3); Neutrophils # 4.1 K/mm3 (1.8-7.8); Neutrophils % 62.5 % (37.0-80.0); Platelet Count 251 K/mm3 (142-424); Red Cell Distribution Width 14.9 % (11.5-17.5); White Blood Count 6.5 K/mm3 (4.8-10.8)
[2022-10-24 16:39] LABS: Alanine Aminotransferase 14 U/L (12-78); Albumin Level 4.2 g/dl (3.5-5.0); Albumin/Globulin Ratio 1.6 (1.1-1.8); Alkaline Phosphatase 96 U/L (38-126); Aspartate Amino Transferase 19 U/L (14-36); Bilirubin,Total 0.2 mg/dl (0.2-1.3); Blood Urea Nitrogen 13 mg/dl (7-17); Calcium 8.9 mg/dl (8.4-10.2); Carbon Dioxide 29 mmol/L (22.0-30.0); Chloride 103 mmol/L (98-107); Chol/HDL Ratio 3.2 (1-3.5); Cholesterol 183 mg/dl (140-200); Estimated Glomerular Filt Rate 69 ml/min (>60); GFR (African American) 83 ML/MIN (>60); Globulin 2.7 g/dL (1.3-3.2); Glucose 88 mg/dl (74-100); HDL Cholesterol 57 mg/dl (40-60); Sodium 137 mmol/L (136-145); Total Protein,Serum 6.9 g/dl (6.3-8.2); Triglycerides 161 mg/dl (30-150); VLDL Cholesterol 32 mg/dL (0-40)
[2022-10-24 16:50] LABS: Direct LDL Cholesterol 100.96 mg/dL (100-129)
[2022-10-26 10:11] LABS: Hep B Surface Ab, Qual Non Reactive (.)
== END ==
PROVIDERS: PCP Nurse Practitioner Family; Visit Provider Nurse Practitioner Obstetrics & Gynecology
DX: Z00.00 Encounter for general adult medical examination without abnormal findings (principal); Z79.899 Other long term (current) drug therapy
CPT/HCPCS: 36415; 80053; 80061; 85025; 86706

== ENCOUNTER → 2022-10-30 16:01 | Outpatient (CLI) | payer MEDICAID, SELFPAY ==
--- NOTE | 2022-10-30 16:01 | MM_ITS ---
PROCEDURE INFORMATION: Exam: Bilateral Screening 3D Mammography Exam date and time: 10/30/2022 3:54 PM Age: 41 years old Clinical indication: Baseline. No family history of breast cancer. TECHNIQUE: Imaging protocol: Bilateral Screening tomosynthesis and 2D mammography including computer-aided detection (CAD) when performed. COMPARISON: No relevant prior studies available. FINDINGS: MAMMOGRAPHY: Breast composition: There are scattered areas of fibroglandular density. Mass: None. Architectural distortion: None. Calcifications: No suspicious calcifications. Asymmetric density: None. Skin thickening: None. Axillary adenopathy: None. IMPRESSION: No mammographic evidence of malignancy. Annual screening is recommended unless otherwise clinically indicated. ASSESSMENT: BI-RADS Category 1: Negative
== END ==
PROVIDERS: PCP Nurse Practitioner Family; Visit Provider Nurse Practitioner Obstetrics & Gynecology
DX: Z12.31 Encounter for screening mammogram for malignant neoplasm of breast (principal)
CPT/HCPCS: 77063; 77067

== ENCOUNTER → 2022-11-19 15:25 | Outpatient (CLI) | payer MEDICAID, SELFPAY ==
[2022-11-19 15:53] LABS: Basophils % 0.3 % (0.1-2.0); Eosinophils # 0.2 K/mm3 (0.0-0.4); Hematocrit 42.2 % (37.0-47.0); Hemoglobin 13.6 g/dL (12.2-16.2); Lymphocytes # 2.1 K/mm3 (0.7-4.5); Lymphocytes % 33.5 % (10-50); Mean Corpuscular HGB Conc 32.2 g/dL (31.8-35.4); Mean Corpuscular Hemoglobin 33.2 pg (27.0-31.2); Mean Corpuscular Volume 103.2 fl (81-99); Mean Platelet Volume 7.6 fl (7.4-10.4); Monocytes # 0.3 K/mm3 (0.1-1.0); Monocytes % 4.1 % (1.7-9.3); Neutrophils # 3.6 K/mm3 (1.8-7.8); Platelet Count 234 K/mm3 (142-424); Red Blood Count 4.09 M/mm3 (4.20-5.40); Red Cell Distribution Width 15.1 % (11.5-17.5); White Blood Count 6.1 K/mm3 (4.8-10.8)
[2022-11-23 14:29] LABS: Strongyloides IgG Antibody Negative (Negative)
[2022-11-24 23:14] LABS: D001-IgE D pteronyssinus <0.10 kU/L (Class 0); D002-IgE D farinae <0.10 kU/L (Class 0); E001-IgE Cat Dander <0.10 kU/L (Class 0); E005-IgE Dog Dander <0.10 kU/L (Class 0); E072-IgE Mouse Urine <0.10 kU/L (Class 0); G002-IgE Bermuda Grass <0.10 kU/L (Class 0); G006-IgE Timothy Grass <0.10 kU/L (Class 0); I006-IgE Cockroach, German 0.32 kU/L (Class I); Immunoglobulin E, Total 286 IU/mL (6-495); M001-IgE Penicillium chrysogen <0.10 kU/L (Class 0); M002-IgE Cladosporium herbarum <0.10 kU/L (Class 0); M003-IgE Aspergillus fumigatus <0.10 kU/L (Class 0); M006-IgE Alternaria alternata <0.10 kU/L (Class 0); T001-IgE Maple/Box Elder <0.10 kU/L (Class 0); T003-IgE Common Silver Birch <0.10 kU/L (Class 0); T006-IgE Cedar, Mountain <0.10 kU/L (Class 0); T007-IgE Oak, White <0.10 kU/L (Class 0); T008-IgE Elm, American <0.10 kU/L (Class 0); T010-IgE Walnut <0.10 kU/L (Class 0); T011-IgE Maple Leaf Sycamore <0.10 kU/L (Class 0); T014-IgE Cottonwood <0.10 kU/L (Class 0); T015-IgE Ash, White <0.10 kU/L (Class 0); T022-IgE Pecan, Hickory <0.10 kU/L (Class 0); T070-IgE White Mulberry <0.10 kU/L (Class 0); W001-IgE Ragweed, Short <0.10 kU/L (Class 0); W011-IgE Thistle, Russian <0.10 kU/L (Class 0); W014-IgE Pigweed, Common <0.10 kU/L (Class 0); W018-IgE Sheep Sorrel <0.10 kU/L (Class 0)
== END ==
PROVIDERS: PCP Nurse Practitioner Family; Visit Provider Internal Medicine Pulmonary Disease
DX: J45.909 Unspecified asthma, uncomplicated (principal); D72.19 Other eosinophilia; F17.210 Nicotine dependence, cigarettes, uncomplicated
CPT/HCPCS: 36415; 82785; 85025; 86003; 86682

== ENCOUNTER → 2022-11-20 15:56 | Outpatient (CLI) | payer MEDICAID, SELFPAY ==
[2022-11-20 17:22] LABS: Thyroid Stimulating Hormone 0.78 uIU/mL (0.465-4.68)
== END ==
PROVIDERS: PCP Nurse Practitioner Family; Visit Provider Otolaryngology
DX: E04.9 Nontoxic goiter, unspecified (principal)
CPT/HCPCS: 36415; 84443

== ENCOUNTER → 2022-11-27 20:06 | Outpatient (CLI) | payer MEDICAID, SELFPAY | PROVIDERS: PCP Nurse Practitioner Family; Visit Provider Family Medicine | DX: G47.30 Sleep apnea, unspecified (principal); R40.0 Somnolence; R06.83 Snoring | CPT/HCPCS: 95810 ==

== ENCOUNTER → 2022-11-28 12:42 | Outpatient (CLI) | payer MEDICAID, SELFPAY ==
--- NOTE | 2022-11-28 12:42 | US_ITS ---
FINAL REPORT TECHNIQUE: Sonographic images of the thyroid were obtained. CLINICAL HISTORY: enlarged thyroid FINDINGS: The thyroid is mildly heterogeneous diffusely. There is mild enlargement of the right thyroid lobe. The left thyroid lobe is normal in size. The right lobe of the thyroid measures 5.9 x 2.3 x 1.6 cm. There is a dominant mass measuring up to 4.6 cm. Benign-appearing colloid cysts are seen in the right lobe measuring 0.7 cm. The left lobe of the thyroid measures 5.0 x 2.1 x 1.3 cm. There are subcentimeter lesions measuring up to 0.5 cm demonstrating a hypoechoic solid appearance. The isthmus measures 4 mm. IMPRESSION: Dominant right thyroid lobe nodule which is indeterminate for neoplasm. Other nodules have a benign appearance based on small size and morphology. Findings consistent with TI-RADS category 4. Ultrasound-guided FNA is recommended on the dominant right nodule. Reviewed, Interpreted and Dictated by Cynthia Arshad MD Transcribed by Shaina Coronado Authenticated and [facility]
== END ==
PROVIDERS: PCP Nurse Practitioner Family; Visit Provider Otolaryngology
DX: E04.9 Nontoxic goiter, unspecified (principal)
CPT/HCPCS: 76536

== ENCOUNTER → 2022-12-19 07:12 | Outpatient (CLI) | payer MEDICAID, SELFPAY ==
--- NOTE | 2022-12-19 07:12 | US_ITS ---
FINAL REPORT CLINICAL HISTORY: right thyroid fna -- Jerry GRANDA FINDINGS: Ultrasound guided thyroid biopsy. HISTORY: Thyroid mass. PROCEDURE: After informed consent was obtained and a time-out was performed, the patient was prepped and draped in usual sterile fashion over the left neck. Utilizing local anesthesia and sterile technique with a 25-gauge needle, access to lesion was obtained. A total of 4 passes were made. The patient received no conscious sedation. The patient tolerated procedure well and left the department in good condition. IMPRESSION: Status post ultrasound guided biopsy of thyroid without immediate complication. Films reviewed , interpreted and dictated by Dr. Gamble. Transcribed by Jerry Kiser PA-C. Reviewed, Interpreted and Dictated by Jean Gamble MD Transcribed by KALEE Carlos Authenticated and . [facility]
== END ==
LOC: RAD 07:12
PROVIDERS: PCP Nurse Practitioner Family; Visit Provider Nurse Practitioner
DX: E04.1 Nontoxic single thyroid nodule (principal)
CPT/HCPCS: 10005; 76536

== ENCOUNTER → 2023-01-02 12:57 | Outpatient (CLI) | payer MEDICAID, SELFPAY ==
[2023-01-09 11:55] LABS: Alpha-1-Antitrypsin 89 mg/dL (101-187); Phenotype (PI) MZ (.)
== END ==
PROVIDERS: PCP Nurse Practitioner Family; Visit Provider Internal Medicine Pulmonary Disease
DX: R06.02 Shortness of breath (principal); Z13.29 Encounter for screening for other suspected endocrine disorder
CPT/HCPCS: 36415; 82103; 82104; 94060; 94618; 94726; 94729

== ENCOUNTER → 2023-01-17 09:44 | Outpatient (CLI) | payer MEDICAID, SELFPAY ==
--- NOTE | 2023-01-17 | CA_ITS ---
APPROVED REPORT Exam: Exercise Treadmill Technologist: Leisa Garcia, Ht: 5 ft 9 in Wt: 198 lbs BSA: 2.06 m2 HR: 56 bpm BP: 116/73 mmHg Rhythm: NSR, LOW VOLTAGE QRS Medical History Medical History: HTN, Smoking Medications: Clonidine,,,,, Flonase,,,,, SyMBICORT,,,,, Vit D3,,,,, Famotidine,,,,, Ibuprofen,,,,, Jayda,,,,, Quetiapine,,,,, Mirtazapine,,,,, AZelastine,,,,, ONdansetron,,,,, Hydroxyzine pamoate,,,,, Allergies: No known drug allergies Cardiac Risk Factors: HTN, , FHX of CAD, Smoking Stress Test Details Test: Master HR Resting HR: 66 bpm Max Heart Rate (APMHR): 177 bpm Max HR Achieved: 155 bpm Target HR (85% APMHR): 150 bpm % of APMHR: 88 Recovery HR: 71 bpm HR response to stress: Normal HR response to stress BP Resting BP: 116.0/73 mmHg Max BP: 181/81 mmHg Recovery BP: 122.0/74.0 mmHg BP response to stress: Normal blood pressure response to stress. ECG Resting ECG: NSR, LOW VOLTAGE QRS Stress ECG: < [address] DEPRESSION Arrhythmia: PVCs, PACs Recovery ECG: RETURN TO BASELINE WITHIN 3 MINUTES OF RECOVERY Recovery Arrhythmia: PVCs, PACs Clinical Exercise duration: 03:50 min Highest Stage Achieved: Stage 2: 2.5 mph at 12% grade. Exercise capacity: 7.0 METs Overall Exercise Capacity for Age: Poor Stress ECG Conclusion PT WALKED 3:50 ON MASTER PROTOCOL. SHE HAD POOR EXERCISE CAPACITY COMPARED TO AGE AND SEX MATCHED PEERS. SHE HAD A NORMAL HR AND BP RESPONSE TO EXERCISE. MAX HR: 155 % OF PM: 88% MAX BP: 181/81 METS: 7.0 TEST STOPPED DUE TO: SOA PT HAD DYSPNEA NO CP BASELINE ECG DEMONSTRATES NORMAL SINUS RHYTHM WITH NO ST CHANGES. AT PEAK STRESS, THERE WAS < 1MM UPSLOPING ST DEPRESSION IN THE INFEROLATERAL LEADS RARE PVC AND PAC WERE PRESENT AT PEAK STRESS AND DURING RECOVERY CONCLUSION POOR EXERCISE CAPACITY. NORMAL HR AND BP RESPONSE TO EXERCISE. OVERALL, NORMAL EXERCISE STRESS TEST. Test Summary REST . . . . . . . Standing REST . . . . . . . Sitting REST 08:19 0.0 0.0 66 . 116/ 73 . . Stage 1 01:00 10.0 1.7 109 . . . . Stage 1 02:00 10.0 1.7 128 . . . . Stage 1 03:00 10.0 1.7 148 . . . . Stage 2 00:50 12.0 2.5 153 . . . Stop exercise at 03:50 RECOVERY 01:00 0.0 0.0 119 . . . . RECOVERY 02:00 0.0 0.0 85 . 181/ 81 . . RECOVERY 03:00 0.0 0.0 70 . 181/ 81 . . RECOVERY 04:00 0.0 0.0 69 . 149/ 65 . . RECOVERY 05:00 0.0 0.0 68 . 150/ 69 . . RECOVERY 06:00 0.0 0.0 71 . 122/ 74 . . RECOVERY 06:06 0.0 0.0 77 . 122/ 74 . . Electronically signed by : Melissa Samano, 01/24/2023 22:32:55
== END ==
PROVIDERS: PCP Nurse Practitioner Family; Visit Provider Nurse Practitioner Family
DX: R06.02 Shortness of breath (principal); R07.9 Chest pain, unspecified; I10 Essential (primary) hypertension; J44.9 Chronic obstructive pulmonary disease, unspecified; F19.91 Other psychoactive substance use, unspecified, in remission
CPT/HCPCS: 93017

== ENCOUNTER 2023-02-25 14:28 | Emergency (ER) | payer MEDICAID, SELFPAY ==
[2023-02-25 14:29] VITALS: BP 146/81; PULSE 69; RESP 18; TEMP 36.9; O2SAT 100; BMI 27.3
--- NOTE | 2023-02-25 14:45 | EXP.UTC ---
Discharge Plan Disposition Patient Disposition: Home, Self-Care Condition: Good Prescriptions Prescriptions: No Action bupropion HCl 150 mg tablet extended release 24 hr 150 mg PO DAILY mirtazapine 30 mg tablet 30 mg PO DAILY clonidine HCl 0.1 mg tablet 0.1 mg PO TID nicotine (polacrilex) 2 mg gum 2 mg buccal Q2H fluticasone propionate 50 mcg/actuation spray,suspension 2 spray INTRANASAL DAILY Qty: 16 2RF Rx Instructions: each nostril daily budesonide-formoterol [Symbicort] 160-4.5 mcg/actuation HFA aerosol inhaler 2 puff inhalation BID 90 Days Qty: 10.2 3RF ibuprofen 800 mg tablet See Rx Instructions .ROUTE .COMPLEX Qty: 90 0RF Dose Instruction: TAKE 1 TABLET BY MOUTH EVERY 8 HOURS WITH FOOD NEEDED Rx Instructions: TAKE 1 TABLET BY MOUTH EVERY 8 HOURS WITH FOOD NEEDED cholecalciferol (vitamin D3) 50 mcg (2,000 unit) capsule 50 mcg PO DAILY Qty: 30 4RF cholecalciferol (vitamin D3) 1,250 mcg (50,000 unit) tablet 1,250 mcg PO WEEKLY Qty: 7 2RF famotidine 20 mg tablet 20 mg PO DAILY Qty: 30 2RF hydroxyzine pamoate 50 mg capsule 50 mg PO BID Qty: 30 3RF Serevent Diskus 50 mcg/dose blister with device See Rx Instructions .ROUTE .COMPLEX Qty: 60 2RF Dose Instruction: USE 1 INHALATION TWICE DAILY Rx Instructions: USE 1 INHALATION TWICE DAILY quetiapine 100 mg tablet 100 mg PO HS Qty: 30 2RF ondansetron 4 mg tablet,disintegrating 4 mg PO Q8H PRN (Reason: nausea and vomiting) Qty: 30 0RF azelastine 137 mcg (0.1 %) aerosol,spray 2 spray intranasal HS 90 Days Qty: 30 3RF Rx Instructions: administer into each nostril fexofenadine 180 mg tablet See Rx Instructions .ROUTE .COMPLEX Qty: 30 1RF Dose Instruction: TAKE 1 TABLET BY MOUTH ONCE DAILY Rx Instructions: TAKE 1 TABLET BY MOUTH ONCE DAILY Vraylar 1.5 mg capsule See Rx Instructions .ROUTE .COMPLEX Qty: 30 1RF Dose Instruction: TAKE 1 CAPSULE BY MOUTH ONCE DAILY Rx Instructions: TAKE 1 CAPSULE BY MOUTH ONCE DAILY Referrals Follow up/Referrals: Clem Schuler APRN [Primary Care Provider] - See instructions Activity Restrictions/Add. Instructions Additional Instructions/Restrictions: Drink extra fluids with and between meals. If you have difficulty drinking, try very small amounts of water or suck on ice chips. ? Avoid fruit juices, as these do not replace minerals and can actually increase diarrhea. ? Children and adults can use sports drinks to replenish electrolytes. Younger children and infants should use products formulated for children, like oral rehydration solutions. ? Eat food in small amounts and let your stomach recover. ? Get lots of rest. You may feel tired or weak. ? No greasy or fried foods for the next 24-48 hours BRAT diet Bananas Rice Apples and [place] ? Make sure to drink plenty of liquids ? Return if needed ? Straight to ER if any life threatening symptoms ? Zofran as prescribed ? You was given an outpatient order for diarrhea panel, please collect specimen and bring back to outpatient lab then call back to the [facility] or follow up with family doctor for results ? Follow up with family doctor in the next 48-72 hours if no improvement or any worsening of symptoms Clinical Impressions Clinical Impression: Nausea vomiting and diarrhea Stand Alone Forms Stand Alone Forms: Work/School Release Instructions Patient Instructions: DI for Nausea -- Adult, Diarrhea, DI for Vaginal Bleeding Discharge ED Provider: Nely Bernal [facility] [place] General Stated complaint: diarrhea, vomiting Mode of Arrival: Ambulatory Source of Information: Patient Limitations: No Limitations Time Seen by Provider: 02/25/23 14:45 Description of Symptoms (Recalled from Triage Doc. by RN): Patient states she has
[2023-02-25 15:23] LABS: Microscopic, Urine URINE MICROSCOPIC (MICROSCOPIC)
[2023-02-25 15:26] LABS: Appearance,Urine CLOUDY (Clear); Bilirubin,Urine Negative (Negative); Blood, Urine 2+ (Negative); Color,Urine YELLOW (Yellow); Glucose,Urine (UA) Negative (Negative); Ketones,Urine Negative (Negative); Leukocyte Esterase,Urine Negative (Negative); Nitrate,Urine Negative (Negative); Protein,Urine Negative (Negative); Urobilinogen,Urine 0.2 EU/dl (0.2)
[2023-02-25 15:39] LABS: Amorphous Sediment,Urine 1+ /lpf; Squamous Epithelial Cell,Urine Occasional #/hpf (0-5); WBC,Urine Occasional #/hpf (0-3)
[2023-02-25 15:50] VITALS: BP 146/81; PULSE 69; RESP 18; TEMP 36.9; O2SAT 100
== END 2023-02-25 15:50 | disposition home or self-care (01) ==
PROVIDERS: Emergency Provider Nurse Practitioner; PCP Nurse Practitioner Family
DX: R11.2 Nausea with vomiting, unspecified (principal); R19.7 Diarrhea, unspecified; J44.9 Chronic obstructive pulmonary disease, unspecified; F17.210 Nicotine dependence, cigarettes, uncomplicated
CPT/HCPCS: 81001; 99212; 99214; G0463; J2405

== ENCOUNTER 2023-12-18 11:30 | Emergency (ER) | payer MEDICAID, SELFPAY ==
[2023-12-18 11:40] VITALS: BP 131/89; PULSE 73; RESP 19; TEMP 36.5; O2SAT 99; BMI 34.4
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
[2023-12-18 12:40] VITALS: BP 131/89; PULSE 73; RESP 19; TEMP 36.5; O2SAT 99
== END 2023-12-18 12:45 | disposition home or self-care (01) ==
PROVIDERS: Emergency Provider Nurse Practitioner; PCP Nurse Practitioner Family
DX: L08.9 Local infection of the skin and subcutaneous tissue, unspecified (principal)
CPT/HCPCS: 99212; 99214; G0463

== ENCOUNTER 2024-01-10 13:09 | Outpatient (CLI) | payer MEDICAID, SELFPAY ==
[2024-01-10 13:57] LABS: Basophils % 0.7 % (0.1-2.0); Eosinophils # 0.1 K/mm3 (0.0-0.4); Eosinophils % 1.7 % (0.1-12.0); Hematocrit 43.6 % (37.0-47.0); Hemoglobin 13.5 g/dL (12.2-16.2); Lymphocytes # 1.5 K/mm3 (0.7-4.5); Lymphocytes % 32.1 % (10-50); Mean Corpuscular HGB Conc 31.1 g/dL (31.8-35.4); Mean Corpuscular Hemoglobin 32.4 pg (27.0-31.2); Mean Corpuscular Volume 104.2 fl (81-99); Monocytes # 0.2 K/mm3 (0.1-1.0); Monocytes % 4.2 % (1.7-9.3); Neutrophils % 61.2 % (37.0-80.0); Platelet Count 230 K/mm3 (142-424); Red Blood Count 4.18 M/mm3 (4.20-5.40); Red Cell Distribution Width 14.5 % (11.5-17.5); White Blood Count 4.8 K/mm3 (4.8-10.8)
[2024-01-10 14:13] LABS: Hemoglobin A1C 5.2 % (4.0-6.0)
[2024-01-10 14:46] LABS: Alanine Aminotransferase 19 U/L (12-78); Albumin Level 3.9 g/dl (3.5-5.0); Albumin/Globulin Ratio 1.3 (1.1-1.8); Alkaline Phosphatase 66 U/L (38-126); Anion Gap 10.8 mEq/L (5-15); Aspartate Amino Transferase 23 U/L (14-36); Bilirubin,Total 0.4 mg/dl (0.2-1.3); Blood Urea Nitrogen 13 mg/dl (7-17); Calcium 9.2 mg/dl (8.4-10.2); Carbon Dioxide 29 mmol/L (22.0-30.0); Chloride 105 mmol/L (98-107); Chol/HDL Ratio 4.1 (1-3.5); Cholesterol 189 mg/dl (140-200); Estimated Glomerular Filt Rate 78 ml/min (>60); GFR (African American) 94 ML/MIN (>60); Globulin 2.9 g/dL (1.3-3.2); Glucose 71 mg/dl (74-100); HDL Cholesterol 46 mg/dl (40-60); Potassium 4.8 mmoL/L (3.5-5.1); Sodium 140 mmol/L (136-145); Total Protein,Serum 6.8 g/dl (6.3-8.2); Triglycerides 210 mg/dl (30-150); VLDL Cholesterol 42 mg/dL (0-40)
[2024-01-10 14:57] LABS: Direct LDL Cholesterol 103.52 mg/dL (100-129)
[2024-01-10 15:02] LABS: 25-OH Vitamin D, Total 34.1 ng/mL (30-100)
[2024-01-10 15:17] LABS: Thyroid Stimulating Hormone 0.19 uIU/mL (0.465-4.68)
[2024-01-12 08:19] LABS: HCV Ab Non Reactive (Non Reactive)
[2024-01-12 08:49] LABS: HIV (1&2) Antibody Rapid NON REACTIVE
== END 2024-01-10 23:59 | disposition home or self-care (01) ==
LOC: LAB 13:10
PROVIDERS: PCP Nurse Practitioner Family; Visit Provider Nurse Practitioner Family
DX: F19.91 Other psychoactive substance use, unspecified, in remission (principal); E04.9 Nontoxic goiter, unspecified; R40.0 Somnolence; R06.83 Snoring; R06.02 Shortness of breath
CPT/HCPCS: 86703; 36415; 80050; 80053; 80061; 82306; 83036; 84443; 85025

== ENCOUNTER 2024-03-09 13:33 | Emergency (ER) | payer MEDICAID, SELFPAY ==
[2024-03-09 14:30] VITALS: BP 138/77; PULSE 64; RESP 19; TEMP 36.7; O2SAT 100; BMI 33.3
--- NOTE | 2024-03-09 14:33 | ED_ITS ---
Discharge Plan Disposition Patient Disposition: Home, Self-Care Condition: Good Prescriptions Prescriptions: New ondansetron 4 mg Tablet,Disintegrating 4 mg PO Q8H PRN (Reason: Nausea) Qty: 12 0RF No Action ondansetron 4 mg tablet,disintegrating 4 mg PO Q8H PRN (Reason: nausea and vomiting) Qty: 30 0RF fexofenadine [Allergy Relief (fexofenadine)] 180 mg tablet 180 mg PO DAILY Qty: 90 1RF Serevent Diskus 50 mcg/dose blister with device 1 inh INHALATION DAILY omeprazole 20 mg capsule,delayed release(DR/EC) 20 mg PO DAILY azelastine 137 mcg (0.1 %) spray,non-aerosol 1 spray INTRANASAL DAILY albuterol sulfate [Ventolin HFA] 90 mcg/actuation HFA aerosol inhaler 2 puff INHALATION Q6HP PRN (Reason: SOA) fluoxetine 20 mg capsule 20 mg PO DAILY fluticasone propionate 50 mcg/actuation spray,suspension 1 spray INTRANASAL DAILY budesonide-formoterol [Symbicort] 160-4.5 mcg/actuation HFA aerosol inhaler 1 inh INHALATION DAILY Referrals Follow up/Referrals: Clem Schuler APRN [Primary Care Provider] - See instructions Activity Restrictions/Add. Instructions Additional Instructions/Restrictions: Drink plenty of fluids. Water or an electrolyte drink like pedialyte or gatorade would be best. Take tylenol for pain or fever. Take the medications as directed. Follow up with your regular doctor. GO TO THE ER FOR ANY WORSENING SYMPTOMS Clinical Impressions Clinical Impression: Gastroenteritis Stand Alone Forms Stand Alone Forms: Work/School Release Instructions Patient Instructions: Viral Gastroenteritis, DI for Viral Gastroenteritis -- Adult, Ondansetron Print Language Print Language: Swedish Discharge ED Provider: Shmuel Myers [facility] General Stated complaint: vomiting, body aches, nausea Time Seen by Provider: 03/09/24 14:26 Related Data Home Medications ?Medication ?Instructions ?Recorded ?Confirmed albuterol sulfate 90 mcg/actuation 2 puff inhalation Q6HP PRN SOA 03/09/24 03/09/24 aerosol inhaler (Ventolin HFA) azelastine 137 mcg (0.1 %) nasal 1 spray intranasal DAILY 03/09/24 03/09/24 spray budesonide-formoterol HFA 160 1 inh inhalation DAILY 03/09/24 03/09/24 mcg-4.5 mcg/actuation aerosol inhaler (Symbicort) fluoxetine 20 mg capsule 20 mg PO DAILY 03/09/24 03/09/24 fluticasone propionate 50 1 spray intranasal DAILY 03/09/24 03/09/24 mcg/actuation nasal spray,suspension omeprazole 20 mg capsule,delayed 20 mg PO DAILY 03/09/24 03/09/24 release salmeterol 50 mcg/dose blister 1 inh inhalation DAILY 03/09/24 03/09/24 powder for inhalation (Serevent Diskus) Previous Rx's ?Medication ?Instructions ?Recorded ondansetron 4 mg disintegrating 4 mg PO Q8H PRN nausea and 11/07/22 tablet vomiting #30 tabs ondansetron 4 mg disintegrating 4 mg PO Q8H PRN Nausea #12 tabs 03/09/24 tablet fexofenadine 180 mg tablet 180 mg PO DAILY #90 tabs 03/11/24 (Allergy Relief (fexofenadine)) Allergies Allergy/AdvReac Type Severity Reaction Status Date / Time No Known Allergies Allergy Verified 02/06/24 13:15 [facility] Disclaimer: The information contained in this section may have been updated after the patient was seen, as this information can be updated by other users. Medical History Abnormality of lung on chest x-ray COPD mixed type Thyroid Nodule Enlarged thyroid Hypertrophy of inferior nasal turbinate Eczematoid otitis externa of both ears Dyspnea on exertion Nocturnal cough with wheeze History of asthma Family history of asthma Allergic rhinitis Otitis externa Otitis media Viral syndrome Nausea & vomiting Gastroenteritis Vomiting Cellulitis Poison malcolm dermatitis Uterine bleeding, dysfunctional Pharyngitis 6 weeks follow-up Surgical History History of nasal surgery Family History Other Asthma COPD (chronic obstructive pulmonary disease) Diabetes Hypertension Social History (Updated 02/06/24 @ 13:33 by Kelle Oates) Smoking Status: Current every day smoker tobacco type: cigarettes packs per day: 1 second hand exposure: No alcohol intake: never substance use type: marijuana current occupational status: employed Travel in the last 8 weeks: None household members: family housing: house number of children: 6 current occupation: [employer] current occupational exposures/hazards: No caffeine: Yes ROS Obtained: Yes All systems reviewed & no additional complaints except as documented Constitutional Constitutional: Denies chills, Denies fever(s) and Reports poor appetite ENT Ears, Nose, Mouth, and Throat: Denies dizziness and Denies sore throat Cardiovascular Cardiovascular: Denies dyspnea Respiratory Respiratory: Denies chest congestion, Denies cough and Denies dyspnea Gastrointestinal Gastrointestingal: Reports as per HPI; Denies abdominal pain Genitourinary Female Genitourinary: Denies difficulty voiding, Denies dysuria, Denies hematuria, Denies urinary frequency, Denies urinary incontinence, Denies urinary hesitancy and Denies urinary urgency Musculoskeletal Musculoskeletal: Denies arthralgias Integumentary/Breasts Skin/Breast: Denies rash Neurologic Neurologic: Denies dizziness Physical Exam General General appearance: alert and in no apparent distress Head Head exam: atraumatic and normocephalic Eye Eye exam: Present normal appearance, PERRL and EOMI ENT ENT exam: Present normal exam, normal oropharynx, mucous membranes moist, TM's normal bilaterally and normal external ear exam Neck Neck exam: Present normal inspection, full ROM and trachea midline; Absent tenderness, meningismus or lymphadenopathy Chest Chest inspection: Present normal inspection and symmetric chest wall rise; Absent tenderness, rash or abscess Respiratory Respiratory exam: Present normal lung sounds bilaterally; Absent respiratory distress, wheezes or stridor Cardiovascular Cardiovascular exam: Present regular rate and normal rhythm; Absent irregular rhythm, systolic murmur, diastolic murmur or JVD Abdominal Exam Abdominal exam: Present soft and hyperactive bowel sounds; Absent distention, tenderness, guarding, rebound, rigidity, psoas sign, obturator sign, heel tap sign, Beatty's sign, Rovsing's sign or tenderness at McBurney's Point Extremities Exam Extremities exam: Present normal inspection and full ROM; Absent tenderness Back Exam Back exam: Present normal inspection and full ROM; Absent tenderness, CVA tenderness (R) or CVA tenderness (L) Neurological Exam Neurological exam: Present alert, oriented X3 and CN II-XII intact Psychiatric Psychiatric exam: Present normal affect and normal mood Skin Skin exam: Present warm, dry, intact and normal color Lymphatic Lymphatic Findings: no adenopathy Medical Decision Making Medical Records Medical records reviewed: No I reviewed the patient's medical records. Tc Inquiry Pt receiving controlled substance: No Lab Data Lab results reviewed: Yes I reviewed the patient's lab results.
[2024-03-09 14:56] VITALS: BP 138/77; PULSE 64; RESP 19; TEMP 36.7; O2SAT 100
[2024-03-09 14:56] LABS: UTC Influenza A Antigen Negative (Negative); UTC Influenza B Antigen Negative (Negative)
== END 2024-03-09 15:00 | disposition home or self-care (01) ==
PROVIDERS: Emergency Provider Nurse Practitioner Family; PCP Nurse Practitioner Family
DX: K52.9 Noninfective gastroenteritis and colitis, unspecified (principal); R11.2 Nausea with vomiting, unspecified; M79.18 Myalgia, other site
CPT/HCPCS: 87804; 99212; 99214; G0463

== ENCOUNTER 2024-06-12 13:25 | Emergency (ER) | payer MEDICAID, SELFPAY ==
--- OUTSIDE RECORDS SUMMARY | 2024-06-12 13:27 | XMS_ITS | Referral Summary ---
Author Organization [facility] Address [address] [place] [address] Phone Care Team Providers Care Popcorn Vendor Name Role Phone Unavailable Primary Care Provider Unavailabl e Allergies No known active allergies Medications ferrous sulfate 325 mg (65 mg iron) Oral Tablet, Delayed Release (E.C.) Take 325 mg by mouth daily (with breakfast). 03/06/2017 Active CLASSIC 28 mg iron- 800 mcg Oral Tablet 1 Tab daily. 03/06/2017 Active ranitidine (ZANTAC) 150 mg Oral Tablet 75 mg 2 times daily. 03/06/2017 Active acetaminophen 325 mg Oral Tab Take 2 Tabs by mouth every 4 hours as needed for Pain. 100 Tab 2 03/26/2017 Active psyllium (METAMUCIL FIBER SINGLES) 3.4 gram Oral Powder in PacketIndication s:Constipation, chronic Take 1 Packet by mouth daily (with breakfast). 30 Packet 6 03/26/2017 Active promethazine (PHENERGAN) 12.5 mg Oral Tablet Take 1 Tab by mouth every 6 hours as needed for Nausea or Vomiting. 30 Tab 03/26/2017 Active Active Problems Problem Noted Date Diagnosed Date (normal spontaneous vaginal delivery) 04/14 Active labor 05/20/2013 Estimated Date of Delivery Comme nts Yes 06/07/2017 Immunizations Name Administration Dates Next Due Influenza Seasonal Injectable PF 04/15/2014 Rho (D) Immune Globulin 02/17/2014,05/21/2013, Tdap 02/17/2014,05/20/2013 Social History Tobacco Use Types Packs/Day Years Used Date Smoking Tobacco: Every Day Cigarettes 0.3 14 Smokeless Tobacco: Never Tobacco Cessation:Ready to Q uit: No; Counseling Given: Yes Alcohol Use Standard Drinks/Week Comments No 0 (1 standard drink = 0.6 oz pur e alcohol) Estimated Date of Delivery Comme nts Yes 06/07/2017 Sex and Gender Information Value Date Recorded Sex Assigned at Not on file Legal Sex Female 3:25 PM EDT Gender Identity Not on file Sexual Orientation Not on file Last Filed Vital Signs Vital Sign Reading Time Taken Comments Blood Pressure 90/52 03/26/2017 1:19 PM EDT Pulse 85 03/26/2017 1:19 PM EDT Temperature 36.9 ??C (98.5 ??F) 03/26/2017 1:19 PM ED T Respiratory Rate 18 04/15/2014 2:48 PM EDT Oxygen Saturation 98% 03/26/2017 1:19 PM EDT Inhaled Oxygen Concentration - - Weight 67.1 kg (148 lb) 03/26/2017 1:19 PM EDT Height 172.7 cm (5' 8 ) 03/26/2017 1:19 PM EDT Body Mass Index 22.5 03/26/2017 1:19 PM EDT Plan of Treatment Not on file Goals Goal Patient Goal Type Associated Problems Recent Progress Patient-Stated? Author Maintain a healthy diet, exercise regularly and maintain an ideal body weight General No Nimco Alejandra RMA Stay Tobacco Free Lifestyle No Nimco Alejandra RMA Insurance [facility] [id number] [facility] [id number] MDR Advance Directives For more information, please contact: [phone] * Full Code (Latest Code Status on File) Date Activated Date Inactivated Comments 04/14/2014 3:26 PM 04/16/2014 12:16 AM * Full Code Date Activated Date Inactivated Comments 05/20/2013 2:30 AM 05/21/2013 6:37 PM
--- OUTSIDE RECORDS SUMMARY | 2024-06-12 13:27 | XMS_ITS | Clinical Summary ---
Author Organization [facility] Address [address] [place] [address] Phone Care Team Providers Care Medical Sales Specialist Name Role Phone Unavailable Primary Care Provider [...] Rho (D) Immune Globulin 02/17/2014,05/21/2013, Tdap 02/17/2014,05/20/2013 Family History Medical History Relation Name Comments Hypertension Brother Cancer Maternal Grandmother Cancer Paternal Grandmother Relation Name Status Comments Brother Maternal Grandmother Paternal Grandmother Social History Tobacco Use Types Packs/Day Years [...] on file Sexual Orientation Not on file Obstetrics History Para Term AB IAB SAB Ectopic Multiple Livin g Live Births 6 5 5 5 5 Date Outcome GA Total Labor Labor/2nd/3rd Weight Sex Type Anes PTL Viviane A1 A5 Name Clin Term M Vag-S pont Livin g Term M Vag-S pont Livin g Term M Vag-S pont Livin g 013 Term 37w 3d 7 lb 1.9 oz (3.229 kg) M Vag-S pont None Livin g 9 9 MARY L,KRI STY BOY A Lisa Richard, Delivery Location:[facility] 014 Term 39w 3d 6 lb 10 oz (3.005 kg) M Vag-S pont Livin g 9 9 MARY L,KRI STY BOY A Nely Boswell, CNM Delivery Location:[facility] Comments:none Current Last Filed Vital Signs Vital Sign Reading [...] 03/26/2017 1:19 PM EDT Plan of Treatment Health Maintenance Due Date Last Done Comments Annual Wellness Exam 11/28/1981 Hepatitis B Vaccine (1 of 3 - 19+ 3-dose series) 11/28/1998 Cervical Cancer Screening 11/28/2000 Pap Smear 11/28/2000 HPV/Pap Cotest 11/28/2009 Breast Cancer Screening 2019 DTaP/TDaP/Td (3 - Td or Tdap) 02/18/2024, 05/20/2013 COVID-19 Vaccine (1 - 2023-2 5 season) 2024 Influenza Vaccine (#1) 2024 04/15/2014 RSV or 60+ (1 - 1-dose 75+ series) 11/28/2054 Pneumococcal Vaccine 0-64 Aged Out No longer eligible based on patient's age to complete this topic Goals Goal Patient Goal Type Associated Problems Recent Progress Patient-Stated? Author Maintain a healthy diet, exercise regularly and maintain an ideal body weight General No Nimco Alejandra RMA Stay Tobacco Free Lifestyle No Nimco Alejandra RMA Insurance OF [address] [place] [address] [address] Advance Directives For more information, please contact: [phone] * Full Code (Latest Code Status on File) Date Activated Date Inactivated Comments 04/14/2014 3:26 PM 04/16/2014 12:16 AM * Full Code Date Activated Date Inactivated Comments 05/20/2013 2:30 AM 05/21/2013 6:37 PM
--- OUTSIDE RECORDS SUMMARY | 2024-06-12 13:27 | XMS_ITS | Encounter Summary ---
Author Organization [place] [address] Care Team Providers Care Motor Coach Driver Name Role Phone Roz Banks APRN Primary Care Provider Unava ilable Reason for Visit * Reason Onset Date Comments Central Patient Navigator Outreach 12/29/2019 Encounter Details Date Type Department Care Team (Late st Contact Info) Description 12/29/2019 Patient Outreach [facility] [address] [place], [place] [id number] Roz Banks APRN Central Patient Navigator Outreach Social History Tobacco Use Types Packs/Day Years Used Date Smoking Tobacco: Every Day Cigarettes 0.3 14 Smokeless Tobacco: Never Alcohol Use Standard Drinks/Week Comments No 0 (1 standard drink = 0.6 oz pur e alcohol) Estimated Date of Delivery Comme nts Yes 06/07/2017 Sex and Gender Information Value Date Recorded Sex Assigned at Not on file Legal Sex Female 3:25 PM EDT Gender Identity Not on file Sexual Orientation Not on file documented as of this encounter Progress Notes * Carli Putnam - 12/29/2019 1:54 PM EDT Patient Outreach: Care Gap Outreach Attempt Count: 1st Care Gaps Addressed home service demonstrator: Annual Wellness Visit, pap Outcome: dx documented in this encounter Plan of Treatment Not on file documented as of this encounter Goals Goal Patient Goal Type Associated Problems Recent Progress Patient-Stated? Author Maintain a healthy diet, exercise regularly and maintain an ideal body weight General No Nimco Alejandra RMA Stay Tobacco Free Lifestyle No Nimco Alejandra RMA documented as of this encounter Visit Diagnoses Not on filedocumented in this encounter Care Teams Motor Coach Driver Relationship Specialty Start Date End Date Roz Banks, LIS PCP - General Nurse Practitioner 12/17/19 04/03/20 documented as of this encounter
--- OUTSIDE RECORDS SUMMARY | 2024-06-12 13:28 | XMS_ITS | Encounter Summary ---
Author Organization [facility] [address] Care Team Providers Care Line Person Name Role Phone Kerrie Castorena MD Primary Care Provider [phone] Reason for Visit * Reason Comments Establish Care Encounter Details Date Type Department Care Team (Late st Contact Info) Description 03/26/2017 1:40 PM EDT Office Visit [facility] [address] [place] [address] Kerrie Castorena MD [address] [place] [address] Annual physical exam (Primary Dx); Constipation, chronic; , unspecified gestational age Social History Tobacco Use Types Packs/Day Years [...] on file documented as of this encounter Last Filed Vital Signs Vital Sign Reading Time Taken Comments Blood Pressure 90/52 03/26/2017 1:19 PM EDT Pulse 85 03/26/2017 1:19 PM EDT Temperature 36.9 ??C (98.5 ??F) 03/26/2017 1:19 PM ED T Respiratory Rate - - Oxygen Saturation 98% 03/26/2017 1:19 PM EDT Inhaled Oxygen Concentration - - Weight 67.1 kg (148 lb) 03/26/2017 1:19 PM EDT Height 172.7 cm (5' 8 ) 03/26/2017 1:19 PM EDT Body Mass Index 22.5 03/26/2017 1:19 PM EDT documented in this encounter Ordered Prescriptions Prescription Sig Dispense Quantity Refills Last Filled Start Date End Date promethazine (PHENERGAN) 12.5 mg Oral Tablet Take 1 Tab by mouth every 6 hours as needed for Nausea or Vomiting. 30 Tab 03/26/2017 psyllium (METAMUCIL FIBER SINGLES) 3.4 gram Oral Powder in PacketIndications :Constipation, chronic Take 1 Packet by mouth daily (with breakfast). 30 Packet 6 03/26/2017 acetaminophen 325 mg Oral Tab Take 2 Tabs by mouth every 4 hours as needed for Pain. 100 Tab 2 03/26/2017 docusate sodium (COLACE) 100 mg Oral Capsule Take 1 Cap by mouth daily as needed for Constipation for up to 30 days. 30 Cap 2 03/26/2017 7 documented in this encounter Progress Notes * Kerrie Castorena MD - 03/26/2017 1:40 PM EDT Subjective Chief Complaint Patient presents with ??? [facility] Care Elena is a new patient with our office today. She is currently , due date 06/07/17. She has not been to a PCP in a very long time she states. Sees Dr Garcia- OB in [facility]. Trouble with constipation. Has a lot of swelling in her legs. OB aware of it. Patient Active Problem List Diagnosis ??? Active labor ??? (normal spontaneous vaginal delivery) Current Outpatient Prescriptions on File Prior to Visit Medication Sig Dispense Refill ??? ibuprofen (ADVIL;MOTRIN) 600 mg tablet Take 1 Tab by mouth every 6 hours. 30 Tab 1 No current facility-administered medications on file prior to visit. Social History Social History ??? Marital status: Legally Spouse name: N/A ??? Number of children: N/A ??? Years of education: N/A Social History Main Topics ??? Smoking status: Current Every Day Smoker Packs/day: 0.25 Years: 14.00 Types: Cigarettes ??? Smokeless tobacco: Never Used ??? Alcohol use No ??? Drug use: Types: Marijuana Comment: Pt st No longer using since last visit ??? Sexual activity: Not Asked Other Topics Concern ??? None Social History Narrative ??? None Family History Problem Relation Age of Onset ??? Hypertension Brother ??? Cancer Paternal Grandmother ??? Cancer Maternal Grandmother Immunization History Administered Date(s) Administered ??? Influenza Seasonal Injectable PF 04/15/2014 ??? Rho (D) Immune Globulin 03/20/2013, 05/21/2013, 02/17/2014 ??? Tdap 05/20/2013, 02/17/2014 Health Maintenance Due Topic Date Due ??? Annual Wellness Exam 11/28/1981 ??? Pneumococcal Vaccine (Medium Risk) 19-64 (1 of 1 - PPSV23) 11/28/1998 ??? Cervical Cancer Screening 11/28/2000 ??? Influenza Vaccine (1) 03/22/2017 Patient Care Team: Kerrie Castorena MD as PCP - General (Family Medicine) Review of Systems Constitutional: Negative for diaphoresis, fatigue, fever and unexpected weight change. Gastrointestinal: Positive for constipation, nausea and vomiting. Genitourinary: Negative for difficulty urinating and dysuria. Objective Temp 98.5 ??F (36.9 ??C) (Oral) Ht 5' 8 (1.727 m) Wt 148 lb (67.1 kg) BMI 22.50 kg/m?? Physical Exam Constitutional: She appears well-developed and well-nourished. No distress. Cardiovascular: Normal rate, regular rhythm and normal heart sounds. Pulmonary/Chest: Effort normal and breath sounds normal. Abdominal: Soft. Bowel sounds are normal. She exhibits no distension. There is no tenderness. Thereis no rebound and no guarding. Skin: Skin is warm and dry. She is not diaphoretic. Psychiatric: She has a normal mood and affect. Her behavior is normal. Judgment and thought contentnormal. Nursing note and vitals reviewed. Lab Results Component Value Date WBC 8.2 04/15/2014 HGB 9.7 (L) 04/15/2014 HCT 27.2 (L) 04/15/2014 PLT 163 04/15/2014 Diagnoses and all orders for this visit: 1. Annual physical exam Discussed healthy lifestyle Discussed importance of her quitting smoking 2. Constipation, chronic - psyllium (METAMUCIL FIBER SINGLES) 3.4 gram Oral Powder in Packet; Take 1 Packet by mouth daily (with breakfast). Dispense: 30 Packet; Refill: 6 Increase water consumption 3. , unspecified gestational age Discussed medications she shouldn't have including ibuprofen Other orders - acetaminophen 325 mg Oral Tab; Take 2 Tabs by mouth every 4 hours as needed for Pain. Dispense: 100 Tab; Refill: 2 - docusate sodium (COLACE) 100 mg Oral Capsule; Take 1 Cap by mouth daily as needed for Constipation for up to 30 days. Dispense: 30 Cap; Refill: 2 - promethazine (PHENERGAN) 12.5 mg Oral Tablet; Take 1 Tab by mouth every 6 hours as needed for Nausea or Vomiting. Dispense: 30 Tab; Refill: 0 [facility] Documentation Medication Compliance - unable to determine Understanding of current medications - poor Self-Management Tools - none Self-Management Ability - poor Willingness to adopt healthy behaviors - poor Patient Barriers: cognitive Existing barriers discussed and addressed in orders and /or referrals. Educated patient regarding the diagnosis, medication/treatment, goals, self- management tools and instructions based on their care plan. They verbalized understanding of the education given on the After Visit Summary [AVS] for today's visit. A copy of the AVS was provided either in writing and/or via [employer]. A new medicine was prescribed during this office visit. I did discuss the reason for prescribing this new medication. I also informed of possible likely side effects, but also encouraged them to readthe medication insert that will accompany their prescription and encouraged them to discuss any questions about the insert with their pharmacist. I instructed them to call if having side effects or possible allergic reaction after taking. I also discussed the risk of stopping the medication or deviating from prescribing instructions. Dosing instructions are present on the AVS and they are aware. I inquired of any questions and answered accordingly. documented in this encounter Plan of Treatment Not on file documented as of this encounter Goals Goal Patient Goal Type Associated Problems Recent Progress Patient-Stated? Author Maintain a healthy diet, exercise regularly and maintain an ideal body weight General No Nimco Alejandra RMA Stay Tobacco Free Lifestyle No Nimco Alejandra RMA documented as of this encounter Visit Diagnoses Diagnosis Annual physical exam- Primary Routine general medical examination at a health care facility Constipation, chronic Unspecified constipation , unspecified gestational age documented in this encounter Discontinued Medications Medication Sig Discontinue Reason Start Date End Da te ibuprofen (ADVIL;MOTRIN) 600 mg Oral Tablet Take 1 tablet by mouth every 6 hours as needed for Pain. DELETE-Therapy completed 04/15/2014 03/26/2017 vit-iron fumarate-FA 27-0.8 mg Tab Take 1 Tab by mouth daily. DELETE-Duplicate 03/26/2017 senna-docusate (SENOKOT-S) 8.6-50 mg per tablet Take 2 Tabs by mouth nightly. DELETE-Therapy completed 05/21/2013 03/26/2017 ibuprofen (ADVIL;MOTRIN) 600 mg tablet Take 1 Tab by mouth every 6 hours. 05/21/2013 03/26/2017 promethazine (PHENERGAN) 12.5 mg Oral Tablet Take 12.5 mg by mouth every 6 hours as needed. Reorder 03/20/2017 03/26/2017 documented as of this encounter Historical Medications * This list may reflect changes made after this encounter. ranitidine (ZANTAC) 150 mg Oral Tablet 75 mg 2 times daily. 03/06/2017 CLASSIC 28 mg iron- 800 mcg Oral Tablet 1 Tab daily. 03/06/2017 ferrous sulfate 325 mg (65 mg iron) Oral Tablet, Delayed Release (E.C.) Take 325 mg by mouth daily (with breakfast). 03/06/2017 promethazine (PHENERGAN) 12.5 mg Oral Tablet Take 12.5 mg by mouth every 6 hours as needed. 03/20/2017 03/26/2017 added in this encounter Care Teams Line Person Relationship Specialty Start Date End Date Kerrie Castorena MD PCP - General Family Medicine 03/26/17 12/16/19 documented as of this encounter
--- OUTSIDE RECORDS SUMMARY | 2024-06-12 13:28 | XMS_ITS | Encounter Summary ---
Author Organization [place] [address] Care Team Providers Care Sas Clinical Programmer Name Role Phone Unavailable Primary Care Provider Unavailabl e Reason for Visit * Reason Comments Ip Rhogam Injection * Auth/Cert/Inpt - Closed Specialty Diagnoses / Procedures Referred By Contac t Referred To Contact Obstetrics [facility] [place] [phone] Phone: tel: fax: Referral ID Status Reason Start Date Expiration Date Visits Re quested Visits Authorized [id number] Closed 03/27/2013 09/23/2013 1 1 Encounter Details Date Type Department Care Team (Latest Contact Info) Description 03/20/2013 3:00 PM EDT - 03/20/2013 3:03 PM EDT Hospital Encounter [facility] [place] [address] Rh negative state in antepartum period (Primary Dx) Discharge Disposition: Home or Self Care Social History Tobacco Use Types Packs/Day Years Used Date Smoking Tobacco: Never Assessed Comments Yes Sex and Gender Information Value Date Recorded Sex Assigned at Not on file Legal Sex Female 3:25 PM EDT Gender Identity Not on file Sexual Orientation Not on file documented as of this encounter Discharge Disposition Disposition Code Departure Means Destination Home or Self Care documented in this encounter Progress Notes * Unknown, Unknown - 03/24/2013 8:00 AM EDT * Elena Dinh RN - 03/20/2013 3:45 PM EDT [id number] VITALS: Heart Rate: u/s Heart Rate: 83 BP: 105/64 mmHg Temp: 98.1 ??F (36.7 ??C) Administrations This Visit Rho D Immune Globulin (HYPERHO S/D) injection 300 mcg Date Action Dose Route User 03/20/2013 Given 300 mcg Intramuscular ELENA DINH Lot #: [id number] Expiration Date: 09/11/2014 RHOGAM INJECTION: A consent form was signed by the patient and her questions were answered. Rhogam injection given IM in left gluteal muscle. The patient has no barriers to education. The patient wasinstructed on the performance of twice- daily kick count. The patient was released. documented in this encounter Plan of Treatment Not on file documented as of this encounter Procedures Procedure Name Priority Date/Time Associated Diagnosis Comments RHIG REQUEST Routine 03/20/2013 3:40 PM EDT Rh negative state in antepartum period documented in this encounter Results * RHIG REQUEST (03/20/2013 3:40 PM EDT) Wks Gest/Reason 29 weeks [facility] RhIG Lot Number [id number] [facility] RhIG Text Any patient that receives Rh Immune Globulin prior to 26-28 weeks gestation should continue to receive Rh Immune Globulin every 12 weeks until delivery or until ceases. [facility] Blood specimen (specimen) 03/20/2013 3:40 PM EDT 03/20/2013 4:27 PM EDT us Kosta Hyman MD BLOOD PRODUCT ORDERS Final R esult [facility] [address] [place] [address] documented in this encounter Visit Diagnoses Diagnosis Rh negative state in antepartum period- Primary Rhesus isoimmunization affecting management of mother, antepartum condition documented in this encounter Historical Medications * This list may reflect changes made after this encounter. ondansetron (ZOFRAN-ODT) 4 mg disintegrating tablet Take by mouth once. 4 vit-iron fumarate-FA 27-0.8 mg Tab Take 1 Tab by mouth daily. 7 added in this encounter
--- OUTSIDE RECORDS SUMMARY | 2024-06-12 13:28 | XMS_ITS | Encounter Summary ---
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 [address] Yana Matson MD Active labor (Primary Dx) Discharge Disposition: Home or Self Care Social History Tobacco Use Types Packs/Day Years Used Date Smoking Tobacco: Never Assessed Alcohol Use Standard Drinks/Week Comments No 0 (1 standard drink = 0.6 oz pur e alcohol) Comments Unknown Sex and Gender Information Value Date Recorded Sex Assigned at Not on file Legal Sex Female 3:25 PM EDT Gender Identity Not on file Sexual Orientation Not on file documented as of this encounter Last Filed Vital Signs Vital Sign Reading Time Taken Comments Blood Pressure 99/57 05/21/2013 7:27 AM EDT Pulse 67 05/21/2013 7:27 AM EDT Temperature 37.2 ??C (98.9 ??F) 05/21/2013 7:27 AM ED T Respiratory Rate 18 05/21/2013 7:27 AM EDT Oxygen Saturation - - Inhaled Oxygen Concentration - - Weight - - Height - - Body Mass Index - - documented in this encounter Discharge Instructions * Discharge Instructions* Kenisha Valadez RN - 05/21/2013 11:[address] [facility] Maternal Care and Discharge Instructions ACTIVITY - Gradually increase your activity as tolerated. If it makes you tired, sore, or bleed more, you are doing too much too soon. Rest as much as you can. You may climb steps, but do so slowly and limit the number of trips up and down in a day. For 2 weeks don't lift anything heavier than 10 pounds. If you had a Section, avoid lifting for 6 weeks. BABY BLUES - Withdrawal of the hormones, as well as fatigue from lack of sleep, can affect the way you feel. Beginning within the first few days after delivery, you may experience irritability, impatience and crying. This is normal. Call your doctor if these feelings worsen or last longerthan 2-3 weeks as it could indicate depression. BLEEDING - During the first few days after delivery your vaginal discharge will be dark red and similar to your menstrual flow. After that, the discharge will continue to decrease in amount and change to a pale pink or brownish color. By the end of there second week most women will have little morethan a clear discharge, which may continue for several weeks. A heavier flow during or when you first get out of bed is normal. Call your doctor if you experience heavy, bright red bleeding (enough to saturate on maxi pad in less than an hour) or if you are passing clots that are increasing in size and frequency. BREAST PAIN - Call your doctor if either breast develops a hard area that becomes red, hot, or tender and is accompanied by flu-like symptoms and fever. CONSTIPATION - Your first bowel movement usually occurs within 2-3 days after delivery. Progressiveexercise, a high fiber diet (fruits, vegetables and whole grains) and plenty of fluids (especially water) will help prevent constipation. Eywz-raz-mabmirw stool softeners may be used, if needed. CRAMPING - Afterpains result from the uterus stevenson after delivery, which helps reduce blood loss and returns the uterus to its pre- size. They are most noticeable in the first 3-4 daysfollowing delivery, particularly for women who have had previous deliveries. These contractions arealso more pronounced during . Anti-inflammatory medications (such as Advil, Ibuprofen or Motrin) usually provide effective relief from afterpains. DIET - Unless instructed otherwise, eat a regular, well-balanced diet and include foods high in protein and iron. Drink plenty of fluids. DRIVING - Avoid driving for 1-2 weeks after delivery. If you are still having pain that would prevent you from reacting quickly in case of an emergency, you should not be driving. Do not drive if youare taking narcotic pain medication (such as Percocet). ENGORGEMENT - Swelling of the breasts may occur 2-4 days after delivery and usually lasts 24-48 hours. If you are bottlefeeding: Wear a tight bra 24 hours a day until the engorgement has passed. Avoid any nipple stimulation during this time. Apply ice packs to each breast for 10-15 minutes, 3-4 times a day as needed. You may also take Tylenol as directed for discomfort. If you are : Massage the breast through a cold, wet cloth until the breast softens. You may need to pump or manually express some milk before each feeding if the nipple is too tight to allow the baby to latch on. Massaging breasts in a warm shower may also help to express milk. Continue to nurse frequently. Apply ice packs after for 10-15 minutes to decrease swelling and relive discomfort. FEVER - Call your doctor if you have a temperature above 100.4 degrees. It could be a sign of infection in your urinary tract, breast, uterus, or abdominal incision. HEMORRHOIDS - Hemorrhoids are best treated with sitz baths, cold compresses, topical anti-inflammatory (Hydrocortisone cream, and Witch Les (Tucks) pads). Avoid constipation to prevent straining against them. INCISIONAL CARE - If you had a Section, clean your incision daily using soap and water. Pat dry, don't rub. Look at your incision every day. Call your doctor if there is any redness in the skin around the incision, pus-filled drainage, or separation of the wound edges. Any stitches you have will dissolve on their own. You can remove steri strips 7 days after they were placed. NIPPLES - Sore nipples are generally due to poor latch-on and improper positioning during . Dab either expressed colostrum or breast milk to your nipple and allow to air dry, or apply a small amount of Lanolin or Lansinoh to your nipple after . Remember to break the suction between your baby's mouth and your breast by sliding your finger into the corner of his/her mouth. PERINEUM - To keep your bottom clean continue to use your squirt bottle to rinse the area with lukewarm water after urination and bowel movements. Dry the area using a front to back patting motion. Use your anesthetic (Dermoplast) spray for pain relief and the topical anti-inflammatory (Hydrocortisone) cream 3-4 times a day as needed. Witch Les (Tucks) pads are cooling and soothing and can be ap plied to the area as often as desired. Change your pads frequently to avoid infection. Any stitchesyou may have will dissolve on their own. PREECLAMPSIA - High blood pressure brought on by can continue into the period.Call your doctor if you experience headaches, dizziness or visual changes (such as blurred vision, spots, or flashing lights). SITZ BATHS - Sitz baths promote healing and provide relief from the pain and swelling associated with episiotomies, tears or hemorrhoids. This can be done 2- 3 times a day for 15-20 minutes at a time using plain, comfortable hot water. SMOKING - Smoking is hazardous to your health. Second had smoke is harmful to those around you. Contact your doctor for smoking cessation information and classes that can help you quit. URINATION - Call your doctor if you experience difficulty urinating (such as burning, frequency with small amounts, or feeling like you are not emptying your bladder) with or without fever. UTERINE INFECTION - The site where the placenta was attached is a healing wound. To prevent infection, avoid introducing bacteria into the vagina - no tub baths, sex, tampons or douching until after your visit. Call your doctor if you experience increased abdominal tenderness, fever or afoul smelling vaginal discharge. WORKING - If you work outside the home, return to work as instructed by your doctor, usually after your 6 week check-up. CALL YOUR DOCTOR if you have a fever, excessive bleeding, breast pain with flu- like symptoms, pain with urination, foul-smelling discharge, leg pain, shortness of breath or persistent depression. [facility] Care and Discharge Instructions BATHING - Your baby does not need a complete bath every day. Every 2 or 3 days is fine. Use mild soaps and shampoos. Sponge bathe your baby to avoid getting the drying umbilical cord wet. After the cord falls off and is healed, you may give your baby a tub bath. Always double check the water temperature before placing your baby in his/her bath. Never leave your baby unattended during bath time even when on a surface such as counter top or table. BLUE BULB - The blue bulb can be used to suction mucous or milk from the back of your baby's throat. Because nasal suctioning can cause irritation and result in increased congestion, it should be avoided or used on a limited basis. BOTTLE FEEDING - Feed your baby formula (not water) every 3-4 hours. Burp your baby every 1/2-1 oz.during and again at the end of the feeding to reduce spitting up. It is not necessary to sterilize the bottles or nipples. Wash them in hot sudsy water. Use tap or bottled water when preparing concentrated or powdered formula and follow the directions on the package exactly. Under-or over-diluting can lead to malnutrition or kidney damage. Store prepared formula in the refrigerator and use [id number] hours. Although most infants will tolerate formula at room temperature, you may choose to warm the formula by running warm water over the outside of the bottle. Do not microwave formula. It not only decreases the nutritional value of the formula, but it may also result in dangerous hot pockets from uneven heating. Once the formula has mixed with your baby's saliva, bacteria will begin to grow in the formula, therefore, any leftover formula should be discarded within an hour after feeding andnew formula used for the next feeding. Frequent watery stools might indicate your baby is having trouble digesting the formula. However, it is recommended you talk with your baby's doctor before making any formula changes. - Offer the breast every 2-3 hours (8-12 times in a 24 hour period) or when hunger cues (lip smacking, hand to mouth, or mouth open) are present. During the first week, your baby will be sleepy and you may have to wake your baby for feedings. Changing your baby's diaper, undressing and putting him/her [id number] with you are all ways to ready your baby to feed. The latch-on is themost important step in preventing sore nipples and aiding in the transfer of milk from the breast to your baby. Position your baby tummy to tummy. Aim the nipple to the roof of your baby's mouth. Wait for his/her open mouth and his/her tongue down and out. Bring your baby to the breast chin first with upper and lower lips flared evenly. Stimulate your baby as necessary to maintain sucking. Look for deep and deeper chin drops and listen for audible swallows ( Ca sound). Allow the baby to feed until he/she self-detaches and is no longer interested in feeding. If the latch-on is uncomfortable, break the seal and re-latch the infant. The nipple should be rounded and non-tender after the feeding. It is only necessary to burp the infant when switching sides or before putting your baby down after the feeding. Giving your baby a bottle or pacifier within the first few weeks can cause nipple confusion and negatively impact your milk supply. Eating a well-balanced diet and drinking plenty of fl uids helps to maintain good milk production. Consult your doctor or the Coil Cleaner beforetaking any medications while you are . CAR SEAT - On all trips, no matter how short, your baby needs to be restrained in a federally approved car seat. Read the maintainability engineer's manuals for your car and car seat to make sure it is installedcorrectly. It should be snug enough so as not to move more than one inch side to side. You should be able to fit only on finger between the strap and your baby's collarbone. Your baby should sit in acar seat that faces backwards until he/she is 1 year old and weighs more than [address] your car seat where there is an activated airbag. To find locations where you can have your car seat installation inspected call 9-019-RCOBKNTVZ or visit their website at www.seatcheck.org. CORD CARE - The remaining portion of the umbilical cord will dry an fall off by itself in 1-4 weeks. While it is not necessary to clean the cord with alcohol, it is important to keep it dry during this time. Be sure to fold the diaper away from the cord until it falls off. You may notice a clear toslightly blood-tinged discharge oozing from the naval a few days after the cord falls off. Call your baby's doctor if there is drainage that lasts longer than 2-3 days, or has a foul odor, or if there is redness in the surrounding skin. DIAPERING - Roll the top edge of the diaper down or use those with an umbilical cutout to keep the cord dry until it falls off. Check your baby's diaper before your baby goes to sleep, shortly after awakening, and before and after feedings. When your baby is wet or soiled, cleanse and dry the area to prevent diaper rash. Remember to wash or wipe little girls from front to back to avoid introducing infection causing bacteria into the bladder. When washing baby boys, be sure to lift the scrotum to remove any stool. Even small amounts of stool left in the area can cause irritation. WET DIAPERS - For the first week of life, your baby should have at least on wet diaper for every day old that he/she is. After that, your baby should have at least 5-7 soaking diapers a day. Call your baby's doctor if your baby has a decrease in urination. DIRTY DIAPERS - Your baby's stools will change from the black tar-like meconium to less sticky brownish-green stool before coming more seedy. Stools of bottle- fed infants are yellowish-ivan and more formed. The frequency may vary from several times daily to once every 3-4 days. Stools of breast-fed infants are mustard-yellow and looser in consistency. In the first week, you should expect a minimumnumber of stools equal to the baby's age in days. After that you will see at least 5-7 stools a day- usually on with every feed. Whether bottle-fed or breastfed, diarrhea is characterized by stools that are frequent and excessively watery. Stools that are small, firm and pebble-like indicate constipation. Call your baby's doctor if he/she has diarrhea for mor than one day, rectal bleeding or constipation that is causing your baby discomfort. CIRCUMCISION CARE - Apply a generous amount of antibiotic ointment/vaseline to the circumcision site every diaper change for 1-3 days. You may cleanse the site gently with mild soap, although rinsingwith warm water is sufficient until it is healed. Healing skin appears as a yellow substance and should not be removed. Call your baby's doctor if you notice any bleeding, unusual swelling, progressin g redness, or if your baby fails to urinate within 24 hours after the procedure. UNCIRCUMCISED CARE - The uncircumcised penis requires no special care. Wash the area with soap and warm water. Do not force the foreskin back. LITTLE GIRLS - Sometimes girl babies have milky white or slightly blood-tinged vaginal discharge. This is a normal response to the withdrawal of your hormones. It will go away after a week or so and requires no special care. FINGERNAILS - Your baby's fingernails are very soft and thin. Extreme care should be taken when cutting them, because they can bleed easily if cut too close to the finger. It is best to cut them whenyour baby is sleeping. HANDWASHING - Handwashing is the single most important method of reducing the spread of germs to your baby. Wash your hands before handling your baby. Have others who wish to hold your baby do the same. Avoid exposing your baby to large crowds for several weeks. IMMUNIZATIONS - If you consented to the Hepatitis B vaccine, the first in the series was given to your baby at delivery. Follow up with your baby's doctor for a schedule of other recommended immunizations. JAUNDICE - Jaundice is a common and usually harmless condition in newborns. It is caused from deposits of bilirubin in the skin as the baby's immature liver tries to breakdown excess red blood cells.Usually, normal feeding patterns will result in the bilirubin being carried away in the urine or stool. If the yellow color is limited to the whites of the eyes, or the skin on the face or chest, thebilirubin level is generally not dangerously high. Call your baby's doctor if the jaundice is progressing to your baby's tummy or thighs or your baby is not feeding well. Normally jaundice is the worst on the third to fifth day of life and goes away in about a week. POSITIONING - Always place your baby on his/her back to sleep. Recent studies have shown an increased risk of Sudden Infant Syndrome in infants who sleep on their stomachs. However, it is recommended your baby enjoy some supervised tummy time while awake to promote muscle development and toavoid the flattening of the head that can result from spending too much time in on position. Do notplace your baby to sleep on soft surfaces or in a crib with fluffy bedding, pillows or stuffed animals. SAFETY - Never leave your baby alone in a car, on a bed, changing table or surface where he/she could fall. Never shake your baby. You knew your baby would cry. But, dealing with a crying baby can be very hard, and parents often don't realize just how frustrating it is until you have tried everything to comfort your baby and he/she just keeps crying. No one thinks they will shake their , but research shows crying as the number one trigger leading caregivers to violently shake and injure babies causing brain damage, bone injuries or possibly . ?? TIPS FOR CRYING - Crying is how babies communicate to you. So how are parents supposed to know what their baby is trying to tell them? It can be tricky to interpret your child???s cries, especially at first. Run through a checklist: Hungry, dirty diaper, tired, wants to be held, tummy troubles (gas, colic), needs to be burped, too hot or too cold, feeling overwhelmed, check for signs of illness. ?? Try swaddling, side/stomach position against your body, shhhushing, swinging, standing up and swaying, singing/humming, sucking, turn on some music or a mono- tone academic department chair/vacuum vacuum cleaner assembler, give awarm bath, maybe take a ride in a car or stroller, call someone and ask for suggestions. What do you do if your baby is still crying? TAKE A DEEP BREATH and know that you are not alone. All parents have felt the frustration, helplessness, and confusion you are feeling right now. It's part of parenting. Take deep breaths to release your tension, hand your baby to someone else in the family if possible, take a break. Please keep in mind, if you feel yourself feeling tense or angry, allow your child to cry in a safe place while you regain composure. It's O.K. if your baby cries while you calm down. NEVER, NEVER shake a baby. SKIN CARE - Lotions and powders are unnecessary and can be irritating to your baby's sensitive skin. Avoid applying anything to your baby's hands as he/she will be placing them in his/her mouth. SMOKING - Do not smoke around your baby or in rooms where your baby will spend time. It is harmful to your baby and has been linked to Sudden Infant Syndrome, as well as increased breathing andear infections. TEMPERATURE - Your baby's temperature can be taken under the arm or rectally with a digital thermometer. Infrared thermometers used in the ear are not accurate in the . Mercury thermometers can break and expose your baby to harmful mercury. You do not need to check your baby's temperature unless he/she feels warm, acts ill, feeds poorly, or shows signs of breathing problems. Call your baby's doctor if his/her temperature is less than 97 degrees or greater than 100 degrees taken under thearm. Dress a full-term in one light layer more than you are comfortable in. Small infants may require an additional layer. WEIGHT LOSS - Most infants will lose 5-10% of their weight in the first few days of life. Most will regain their weight within 10 days. It is important that you visit your baby's doctor for check-ups so your baby's growth and development can be monitored. CALL YOUR BABY'S DOCTOR if your baby has a fever, repeated vomiting or diarrhea, decreased feedings, decreased output (urine or stools), extreme sleepiness, persistent and inconsolable crying, redness around the belly button, a new rash that covers a large portion of the body or one that is associated with fever, increasing jaundice, or drainage from the eyes, ears or nose. [facility] Medication for Treatment of Pain, Cramping or Fever IBUPROFEN: (Motrin, Advil). This is a non-steroidal anti-inflammatory (NSAID) drug used to treat mild to moderate pain, uterine cramping and/or fever. You may take up to 600 mg. Every 6 to 8 hours. ?? Take this drug with a whole glass of water (8 oz./24 ml.) and with food. ?? Do not lie down for 30 minutes after taking this drug. ?? Do not take this drug if you are allergic to aspirin or ibuprofen. ?? Do not take this drug while . ?? Protect drug from moisture. Do not store in the bathroom. These common side effects may occur: ?? Nausea, vomiting or heart burn ?? Diarrhea, gas, or constipation ?? Dizziness, lightheadedness, nervousness, or drowsiness Let your caregiver know if you feel any of the following: ?? Rapid or pounding heart beat ?? Easy bruising or bleeding ?? Mental or mood changes ?? Wheezing, chest tightness, or bad cough. ?? Severe or continuous stomach pains ?? Vomit that looks like coffee grounds (dark brown) ?? Black, tarry or bloody stools [facility] Medication for Treatment of Moderate to Severe Pain PERCOCET: (Oxycodone with Tylenol). This medication is used to treat moderate to severe pain. Take one or two tablets every 4-6 hours as needed for moderate or severe pain. ?? You may take this drug with or without food. ?? Do not drive while taking this drug. ?? Do not take this drug if you are allergic to Tylenol. ?? Do not drink alcohol while taking this drug. ?? If , take this drug after you have nursed your baby. These common side effects may occur: ?? Nausea, vomiting or heart burn ?? Constipation ?? Dizziness, lightheadedness, nervousness, or drowsiness Let your caregiver know if you feel any of the following: ?? Slow or irregular heart beat ?? Slow or irregular breathing ?? Mental or mood changes ?? Change in amount of urine you make [facility] Maternal Discharge Summary You have been discharged by your doctor. If you have questions or concerns about yourself, call your doctor. Feel free to call us at [place] if we can help you. Elena Fang [phone] 05/[birth year]/2013 [address] [facility] [address] FOLLOW UP APPOINTMENTS Call the office of Dr. [facility] to schedule your 4 week check-up. PAIN ASSESSMENT Location: Pain description: Current Pain Intensity:____ If your pain intensifies or is unrelieved by the pain medications as ordered, call your doctor. Follow your Maternal Care and Discharge Instructions. I verify that I have received and understand my discharge instructions. I feel competent to care for myself. My questions have been answered to my satisfaction. X May 21, 2013 Kenisha Valadez RN Patient Date R.N. documented in this encounter Medications at Time of Discharge ondansetron (ZOFRAN-ODT) 4 mg disintegrating tablet Take by mouth once. 4 oxyCODONE-acetaminop hen (PERCOCET) 5-325 mg per tablet Take 1 Tab by mouth every 6 hours as needed. 10 Tab 0 05/21/2013 4 documented as of this encounter Ordered Prescriptions Prescription Sig Dispense Quantity Refills Last Filled Start Date End Date senna-docusate (SENOKOT-S) 8.6-50 mg per tablet Take 2 Tabs by mouth nightly. 30 Tab 1 05/21/2013 03/26/2017 oxyCODONE-acetamino phen (PERCOCET) 5-325 mg per tablet Take 1 Tab by mouth every 6 hours as needed. 10 Tab 0 05/21/2013 04/15/2014 ibuprofen (ADVIL;MOTRIN) 600 mg tablet Take 1 Tab by mouth every 6 hours. 30 Tab 1 05/21/2013 03/26/2017 documented in this encounter Discharge Disposition Disposition Code Departure Means Destination Home or Self Senior Living documented in this encounter Progress Notes * Lesa Lopes MSW - 05/27/2013 12:29 PM EST The SW called Child Protective Services ([phone]/ref#[id number]). The MOB stated she smoked marijuana yesterday prior to delivery but had a negative tox screen. MOB has four other children at home besides BA. BA had a positive tox screen for marijuana. MOB and BA were discharged home on 05/21/13. * Unknown, Unknown - 05/23/2013 1:27 PM EDT * Kenisha Valadez RN - 05/21/2013 2:30 PM EDT Pt. VSS, afebrile. + void/ambulation. Small rubra lochia. Pain controlled by Ibuprofen. Bonding well with infant. Follow up with OB 4 weeks. Call sooner with questions. Discharge instructions given to patient and she verbalized understanding of care of and self. Discharged per wheelchair with infant. * Kenisha Valadez RN - 05/21/2013 1:13 PM EDT Results called to Dr. Tone Luna. KB stain 0.1%. * Tone Luna DO - 05/21/2013 9:27 AM EDT [facility] Post Vaginal Delivery Progress Note Subjective: day: 1 The patient feels well. Pain is well controlled with current medications. The baby is well. The patient is ambulating well. The patient is tolerating a normal diet. Objective: Recent Labs 05/21/13 0633 HGB 9.9* HCT 27.8* Other labs: CBC: Lab Results Component Value Date WBC 9.1 05/21/2013 RBC 2.74* 05/21/2013 HGB 9.9* 05/21/2013 HCT 27.8* 05/21/2013 MCV 101.8* 05/21/2013 MCHC 35.7* 05/21/2013 RDW 13.2 05/21/2013 PLT 157 05/21/2013 MPV 8.2 05/21/2013 Patient Vitals for the past 24 hrs: BP Temp Temp src Pulse Resp 05/21/13 0727 99/57 mmHg 98.9 ??F (37.2 ??C) Oral 67 18 05/21/13 0038 108/59 mmHg 97.8 ??F (36.6 ??C) Oral 58 18 05/20/13 2031 112/73 mmHg 98.1 ??F (36.7 ??C) Oral 80 18 05/20/13 1425 119/69 mmHg 98.2 ??F (36.8 ??C) Oral 67 18 05/20/13 1105 113/69 mmHg 98.7 ??F (37.1 ??C) Oral 76 18 Temp (24hrs), Av.3 ??F (36.8 ??C), Min:97.8 ??F (36.6 ??C), Max:98.9 ??F (37.2 ??C) General: alert, well appearing, in no apparent distress Lochia: appropriate Uterine Fundus: firm Perineum: normal per patient Assessment: Status post vaginal delivery doing well. Plan: The plan is to Discharge home with standard precautions and return to clinic in 4-6 weeks Tone Luna DO Cosigned by Enrique Mast IV, MD at 05/21/2013 10:15 AM EDT * Mariola Mast RN - 05/21/2013 5:14 AM EDT Oxycodone and heroin drug screening have been sent to a reference lab for confirmation. See lab results/footnotes. * Mariola Mast RN - 05/21/2013 5:00 AM EDT Mom sleeping with baby in arms in bed. Removed baby from mother's arms, placed baby in crib. Explained to mother importance of not sleeping with baby in hospital bed. Will continue to monitor. * Mariola Mast RN - 05/20/2013 11:13 PM EDT VSS, skin warm and dry, fundus firm at u/1, lochia small. Voiding and ambulating well. Tolerating diet well. Positive bonding noted. Perineal repair intact, well approximated. Pain controlled with Motrin and Percocet. Will continue to monitor. * Lesa Lopes MSW - 05/20/2013 1:17 PM EDT 05/20/13 1300 Assessment Complete Completed by MAT Yes Maternal/Child Assessment Referral Source Birthing Center Reason for Referral Other (Comment) (MOB stated she smoked marijuana yesterday ) Source of Information Patient Support System/ Resources Lives with family/friend (List) (FOB and 3 other children) Education (complete if less than 18 years) High School/GED Graduate Potential Discharge Needs Car Seat/Supplies for Baby;Child Protective Services Referrals/Interventions Referral/Intervention Comments The SW met with MOB and FOB. MOB appeared appropriate with BA. MOB had a negative tox screen and BA's tox screen was sent to the lab. The MOB stated they have all needed baby items, uses [employer] for transportation, on Medicaid, receives WIC, has family support, and appears to have no present concerns. Discharge Plan Discharge Plan (pending physician orders) Patient and baby to be discharged home with no further needs documented in this encounter H&P Notes * Lisa Richard, DO - 05/20/2013 1:14 AM EDT [facility] OB Labor History and Physical Name: Elena Fang Age: 32 y.o. Race: : 4 Para: T 3 P 0 A 0 L 3 Name of Clinic: Initial care in [place], had one visit at [address] Hyman Onset of Labor: This evening. SROM at home. ROM: SROM Fluid color: Clear at home, meconium upon arrival to triage HPI: Brought in by EMS in labor. Complete and pushing in triage. Iker breech presentation with meconium present. LMP: 08/31/2012 EDC: 06/07/2013 EGA: 37w3d US: 28 wks. Placental Location: anterior Other Findings: Normal anatomy Course: Denies complications but had very limited care Prior OB Hx: OB History Grav Para Term Abortions TAB SAB Ect Mult Living 4 4 4 4 patient reports 3 uncomplicated SVDs Labs: ABORH: O negative CBC: 11.3/33.7 RPR: Nonreactive Rubella: Immune HIV: Nonreactive HBsag: Negative GC/Chlamydia: Negative/Negative GBS: Not done Pap Smear: Negative 1 hr. GCT: Not done Past Med Hx: Allergies: No Known Allergies Medical Hx: History reviewed. No pertinent past medical history. Surgical Hx: History reviewed. No pertinent past surgical history. Family Hx: History reviewed. No pertinent family history. Social Hx: History Social History ??? Marital Status: Legally Spouse Name: N/A Number of Children: N/A ??? Years of Education: N/A Occupational History ??? Not on file. Social History Main Topics ??? Smoking status: Not on file ??? Smokeless tobacco: Not on file ??? Alcohol Use: Not on file ??? Drug Use: Marijuana ??? Sexually Active: Not on file Other Topics Concern ??? Not on file Social History Narrative ??? No narrative on file Meds: No current facility-administered medications on file prior to encounter. Current Outpatient Prescriptions on File Prior to Encounter Medication Sig Dispense Refill ??? vit-iron fumarate-FA 27-0.8 mg Tab Take 1 Tab by mouth daily. ??? ondansetron (ZOFRAN-ODT) 4 mg disintegrating tablet Take by mouth once. Review of Systems: The listed systems were reviewed and reveal the following in addition to any already discussed in the HPI: ?? Constitutional: no additional concerns noted ?? Eyes: no additional concerns ?? HENT: no additional concerns noted ?? Lungs: no additional concerns noted ?? Cardiovascular: no additional concerns noted ?? Endocrine: no additional concerns noted ?? GI: no additional concerns noted ?? : no additional concerns noted ?? Musculoskeletal: no additional concerns noted ?? Neurologic: no additional concerns noted ?? Skin: no additional concern noted ?? Psychiatric: no additional concerns noted ?? Hematologic/Allergic: no additional concerns noted Diet: eats three meals a day Physical Exam: Vitals: Filed Vitals: 05/20/13 0102 BP: 132/63 Pulse: 57 Temp: 97.5 ??F (36.4 ??C) Resp: Height: Weight: General: alert, well developed, well nourished, in no acute distress Skin: warm, well perfused and no rashes Eyes: not examined HENT: neck without nodes Lungs: not examined Heart: not examined Breasts: not examined Abdomen: gravid Extremities: not examined Neurological normal without focal findings Reflexes Not examined Fundal Height: S=D Presentation: Iker breech, complete upon arrival to triage by EMS Current Labs: Assessment: 37w3d IUP Active Labor Iker Breech presentation Plan: Delivered in triage without complication then transferred to room 1335. Placenta spontaneous 3VI. IV Pitocin given. Stadol 1mg given for pain control. Signature: Lisa Richard DO Date: 05/20/2013 documented in this encounter Procedure Notes * Lisa Richard DO - 05/20/2013 1:13 AM EDT Delivery Information for Elena Fang Labor Events: labor: Rupture date: 05/19/2013 Rupture time: 11:40 PM Rupture type: Spontaneous Fluid Color: Clear;Meconium Induction: None Augmentation: None Complications: Breech Delivery Cervical ripening: Delivery: Episiotomy: Lacerations: None Repair suture: Repair # of packets: Blood loss (ml): 100 information: Date of : 05/20/2013 Time of : 12:17 AM Sex: male Delivery type: Vaginal, Spontaneous Delivery Gestational Age: 37.4 weeks. Delivery Clinician: Lisa Richard Living?: Yes APGARS One minute Five minutes Ten minutes Fifteen minutes Twenty minutes Skin color: 1 1 Heart rate: 2 2 Grimace: 2 2 Muscle tone: 2 2 Breathin 2 Totals: 9 9 Presentation/position: Resuscitation: Warm Dry Bulb Suction Position Cord information: 3 Vessels Disposition of cord blood: Blood gases sent? No Complications: None Placenta: Delivered: 05/20/2013 12:29 AM Spontaneous Intact appearance Hayden Measurements: Weight: 3229 g (7 lb 1.9 oz) Height: 19 inches Head circumference: 13.75 inches Other providers: Delivery Nurse [employer] Rob[employer] Specialist Registered Nurse Registered Nurse Registered Nurse Candice Tinoco Additional information: Forceps: None Vacuum: None Breech: Iker Observed anomalies Uncomplicated natural vaginal iker breech delivery in triage. Elena and Baby Boy to regular recovery in stable condition. documented in this encounter Consult Notes * Lesa Lopes MSW - 05/21/2013 10:16 AM EDTAssociated Order(s): IP CONSULT TO SOCIAL WORK The SW will follow MOB and BA's tox screen results for further clarification. Currently, MOB's tox screen is negative but portions are being retested. BA's tox screen results are pending. At this time, MOB and BA can be discharged home upon doctor's approval. SW will f/u with Child Protective Services and family at home if needed. * Lesa Lopes MSW - 05/20/2013 1:17 PM EDTAssociated Order(s): IP CONSULT TO SOCIAL WORK The SW met with MOB and FOB. MOB appeared appropriate with BA. MOB had a negative tox screen and BA's tox screen was sent to the lab. The MOB stated they have all needed baby items, uses [employer] for transportation, on Medicaid, receives WIC, and has family support. The SW appears to have no present concerns. Upon doctor's approval, MOB and BA can be discharged home together. documented in this encounter Miscellaneous Notes * Miscellaneous - Unknown, Unknown - 05/23/2013 1:27 PM EDT * Plan of Care - Kelsi Cardoso RN - 05/20/2013 6:24 PM EDT Problem: Potential for altered GI/ elimination Goal: Patient will have active bowel sounds and urinary output Outcome: Progressing FF @ u/1. Rubra lochia. Pt denies pain. documented in this encounter Plan of Treatment Pending Results Name Type Priority Associated Diagnoses Date /Time TYPE AND SCREEN Blood Bank STAT 3 12:32 AM EDT Scheduled Orders Name Type Priority Associated Diagnoses Orde r Schedule IP CONSULT TO Consult Routine O ne Time for 1 Occurrences starting 05/20/2013 until 05/20/2013 documented as of this encounter Procedures Procedure Name Priority Date/Time Associated Diagnosis Comments SCREEN Routine 05/21/2013 6:33 AM EDT RHIG REQUEST Routine 05/21/2013 6:33 AM EDT RHIG ELIGIBILITY Routine 05/21/2013 6:33 AM EDT RHIG CHECK Routine 05/21/2013 6:33 AM EDT DIFFERENTIAL Routine 05/21/2013 6:33 AM EDT KLEIHAUER BETKE STAIN Routine 05/21/2013 6:33 AM EDT CBC WITH DIFF Routine 05/21/2013 6:33 AM EDT IP CONSULT TO SOCIAL WORK Routine 05/21/2013 5:17 AM EDT Procedure Note - Lesa Lopes, JOSHUA - 05/21/2013 10:16 AM EDTThis note is in progress. The SW will follow MOB and BA's tox screen results for furtherclarification. Currently, MOB's tox screen is negative but portions arebeing retested. BA's tox screen results are pending. At this time, MOBand BA can be discharged home upon doctor's approval. SW will f/u withChild Protective Services and family at home if needed. IP CONSULT TO SOCIAL WORK Routine 05/20/2013 3:19 AM EDT Procedure Note - Lesa Lopes MSW - 05/20/2013 1:17 PM EDTThis note is in progress. The SW met with MOB and FOB. MOB appeared appropriate with BA. MOB had anegative tox screen and BA's tox screen was sent to the lab. The MOBstated they have all needed baby items, uses [employer] for transportation, onMedicaid, receives WIC, and has family support. The SW appears to have nopresent concerns. Upon doctor's approval, MOB and BA can be discharged home together. DRUG CONFIRMATION, OPIATES URINE-REF LAB [facility] 05/20/2013 3:00 AM EDT DRUGS OF ABUSE, SCREEN ONLY, URINE STAT 05/20/2013 2:30 AM EDT TYPE AND SCREEN STAT 05/20/2013 12:32 AM EDT SYPHILIS SCREEN WITH REFLEX RPR QUANT STAT 05/20/2013 12:20 AM EDT CBC STAT 05/20/2013 12:20 AM EDT ABORH STAT 05/20/2013 12:20 AM EDT ANTIBODY SCREEN IGG STAT 05/20/2013 1 2:20 AM EDT documented in this encounter Results * RHIG CHECK (05/21/2013 6:33 AM EDT) Pathologist [facility] RhIG Check RH NEG [facility] Blood specimen (specimen) 05/21/2013 6:33 AM EDT 05/21/2013 6:46 AM EDT Yana Matson MD BLOOD BANK ORDERABLES Fin al Result Performing Organization Address [facility] de Phone Number [facility] [address] [place] [address] * KLEIHAUER BETKE STAIN (05/21/2013 6:33 AM EDT) Pathologist [facility] % Cells 0.1 % [facility] Comment: This test reports the percentage of red blood cells in the maternal circulation resulting from recent -maternal hemorrhage. ??To determine the volume (in mL) of erythrocytes in the maternal circulation, multiply the test result by 50 (this assumes a total maternal circulatory volume of 5,000 mL). ??If indicated, follow up with the Blood Bank for RhIg dosage and administration. ? The Kleihauer-Betke test is a widely used standard method to quantify fetomaternal hemorrhage. The accuracy of the Kleihauer-Betke test depends on several variables, and the test cannot distinguish hemoglobin F from the hemoglobin F that may be present in adults with thalassemia or sickle cell disease. Blood specimen (specimen) 05/21/2013 6:33 AM EDT 05/21/2013 10:14 AM EDT Yana Matson MD HEMATOLOGY ORDERABLES Fin al Result Performing Organization Address [facility] de Phone Number [facility] [address] [place] [address] * DIFFERENTIAL (05/21/2013 6:33 AM EDT) Neut Percent 61.7 % [facility] Lymph Percent 30.8 % [facility] Larue Percent 4.9 % [facility] Eos Percent 2.3 % [facility] Baso Percent 0.3 % [facility] Neut# 5.6 1.8 - 7.7 x10(3)/mcL [facility] Lymph# 2.8 0.6 - 4.8 x10(3)/[facility] Larue# 0.4 0.0 - 1.3 x10(3)/[facility] Eos# 0.2 0.0 - 0.5 x10(3)/[facility] Baso# 0.0 0.0 - 0.2 x10(3)/[facility] Blood specimen (specimen) 05/21/2013 6:33 AM EDT 05/21/2013 7:11 AM EDT us Lisa J [place] DO HEMATOLOGY ORDERABLES Final Resu lt Performing Organization Address [facility] Co de Phone Number [facility] [address] [place] [address] * RHIG ELIGIBILITY (05/21/2013 6:33 AM EDT) RhIG Eligible Yes [facility] Blood specimen (specimen) 05/21/2013 6:33 AM EDT 05/21/2013 6:46 AM EDT us Lisa J [place] DO BLOOD BANK ORDERABLES Final Resu lt Performing Organization Address [facility] Co de Phone Number [facility] [address] [place] [address] * RHIG REQUEST (05/21/2013 6:33 AM EDT) Wks Gest/Reason 37 [facility] RhIG Lot Number [id number] [facility] RhIG Text POST [facility] Blood specimen (specimen) 05/21/2013 6:33 AM EDT 05/21/2013 6:46 AM EDT us Lisa J [place] DO BLOOD PRODUCT ORDERS Final Resul t Performing Organization Address City/[facility] Co de Phone Number [facility] [address] [place] [address] * SCREEN (05/21/2013 6:33 AM EDT) Pathologist [facility] Scn Int Negative [facility] Blood specimen (specimen) 05/21/2013 6:33 AM EDT 05/21/2013 6:46 AM EDT [facility] BLOOD BANK ORDERABLES Final Resu lt Performing Organization Address City/[facility]/ZIP Co de Phone Number [facility] [address] [place] [address] * (ABNORMAL) CBC WITH AUTO DIFF (05/21/2013 6:33 AM EDT) [facility] WBC 9.1 4.0 - 11.0 x10(3)/mcL [facility] RBC 2.74(L) 3.80 - 5.10 x10(6)/mcL [facility] Hgb 9.9(L) 12.0 - 15.6 gm/dL [facility] Hct 27.8(L) 35.7 - 45.9 % [facility] MCV 101.8(H) 82.5 - 99.[address] [facility] MCH 36.3(H) 27.0 - 34.[address] [facility] MCHC 35.7(H) 32.1 - 35.3 gm/dL [facility] RDW 13.2 11.5 - 15.0 % [facility] Platelet 157 144 - 423 x10(3)/mcL [facility] MPV 8.2 6.8 - 10.[address] [facility] Blood specimen (specimen) UPPER LIMB STRUCTURE / Unknown 05/21/2013 6:33 AM EDT 05/21/2013 7:11 AM EDT [facility] ORDERABLES Final Resu lt [facility] [address] [place] [address] * DRUG CONFIRMATION, OPIATES URINE-ARUP (05/20/2013 3:00 AM EDT) Pathologist [facility] U Opiates Conf Negative [facility] Comment: INTERPRETIVE INFORMATION: Opiates - Confirmation/Quantitation - Urine Methodology: Quantitative Liquid Chromatography-Tandem Mass Spectrometry Drugs covered: codeine, morphine, 6-acetylmorphine, hydrocodone, norhydrocodone, hydromorphone, oxycodone, noroxycodone, oxymorphone and noroxymorphone. All drugs covered are the non-glucuronidated (free) form. Positive cutoff: 20 ng/mL For medical purposes only; not valid for forensic use. The absence of expected drug(s) and/or drug metabolite(s) may indicate non-compliance, inappropriate timing of specimen collection relative to drug administration, poor drug absorption, diluted/adulterated urine, or limitations of testing. The concentration value must be greater than or equal to the cutoff to be reported as positive. A very small amount of an unexpected drug analyte in the presence of a large amount of an expected drug analyte may reflect pharmaceutical impurity. Interpretive questions should be directed to the laboratory. U Hydrocodone <20 ng/mL [facility] U Oxycodone <20 ng/mL [facility] U Oxymorphone <20 ng/mL [facility] LAB U Hydromorphone <20 ng/mL [facility] U Codeine <20 ng/mL [facility] U Morphine <20 ng/mL [facility] U Opiates <20 ng/mL [facility] U Noroxycodone <20 ng/mL [facility] LAB U Noroxymorphone <20 ng/mL [facility] U Norhydrocodone <20 ng/mL [facility] Urine specimen (specimen) 05/20/2013 3:00 AM EDT 05/20/2013 10:28 PM EDT us Lisa Richard DO URINE ORDERABLES Final Result [facility] [address] [place] [address] * (ABNORMAL) DRUGS OF ABUSE, SCREEN ONLY, URINE (05/20/2013 2:30 AM EDT) Cannaboinoid Screen, Urine Absent 50 ng/mL [facility] LAB Benzodiazepines Screen Absent 200 ng/mL [facility] Cocaine(Metab.)Scr een, Urine Absent 150 ng/mL [facility] Opiate 300 Screen Absent 300 ng/mL [facility] Barbiturate Screen, Urine Absent 200 ng/mL [facility] Amphetamine Screen, Urine Absent 500 ng/mL [facility] Phencyclidine Screen Absent 25 ng/mL [facility] Methadone Screen, Urine Absent 300 ng/mL [facility] Oxycodone Screen Sent to Ref Lab(A) 100 ng/mL [facility] 6 AM (Heroin) Screen Sent to Ref Lab(A) 10 ng/mL [facility] Comment: Possible interference present. ??Specimen sent to reference lab for confirmation testing. ??Results will be reported separately. Buprenorphine Screen Absent 5 ng/mL [facility] Creatinine Ur 14.4 mg/dL [facility] Comment: Greater than 20: Consistent with valid sample Greater than 2 but less than 20: Possible dilution Less than 2: Questionable valid sample Specimen Note See Footnote [facility] Comment:Low urine creatinine consistent with dilution. Drug Screen Note These drug classes have been screened by immunoassay. If confirmation is desired, please place a separate order for each drug confirmation. Specimens will be saved for 3 business days should additional orders/testing by desired. [facility] Urine specimen (specimen) URINE SPECIMEN COLLECTION, CLEAN CATCH / Unknown 05/20/2013 2:30 AM EDT 05/20/2013 3:34 AM EDT Lisa Richard DO URINE ORDERABLES Final Result [facility] [address] [place] [address] * (ABNORMAL) ANTIBODY SCREEN IGG (05/20/2013 12:20 AM EDT) ABSC IgG Int Positive( A) [facility] Comment: 05/20/2013 03:00 ??JMILLER 05/20/2013 03:00 ??JMCLIFFR Patient demonstrates Anti-D. Source of Anti-D not determined and may be due to Rh Immune Globulin given on: 03/20/2013 at: [facility]. If further workup is desired, contact the Blood Bank at [place]:[phone] or [place] at [phone]. Blood specimen (specimen) 05/20/2013 12:20 AM EDT 05/20/2013 1:10 AM EDT [facility] BLOOD BANK ORDERABLES Edited Res ult - Final Performing Organization Address City/[facility]/ZIP Co de Phone Number [facility] [address] [place] [address] * ABORH (05/20/2013 12:20 AM EDT) ABORh Int O NEG [facility] Blood specimen (specimen) 05/20/2013 12:20 AM EDT 05/20/2013 1:10 AM EDT [facility] BLOOD BANK ORDERABLES Final Resu lt Performing Organization Address [facility] Co de Phone Number [facility] [address] [place] [address] * (ABNORMAL) CBC (05/20/2013 12:20 AM EDT) WBC 8.6 4.0 - 11.0 x10(3)/mcL [facility] RBC 3.44(L) 3.80 - 5.10 x10(6)/mcL [facility] Hgb 12.2 12.0 - 15.6 gm/dL [facility] Hct 34.7(L) 35.7 - 45.9 % [facility] MCV 100.8(H) 82.5 - 99.[address] [facility] MCH 35.5(H) 27.0 - 34.[address] [facility] MCHC 35.2 32.1 - 35.3 gm/dL [facility] RDW 12.9 11.5 - 15.0 % [facility] Platelet 169 144 - 423 x10(3)/mcL [facility] MPV 8.8 6.8 - 10.[address] [facility] Blood specimen (specimen) 05/20/2013 12:20 AM EDT 05/20/2013 1:10 AM EDT [facility] HEMATOLOGY ORDERABLES Final Resu lt Performing Organization Address City/[facility]/ZIP Co de Phone Number [facility] [address] [place] [address] * SYPHILIS SCREEN WITH REFLEX RPR QUANT (05/20/2013 12:20 AM EDT) TREP(SYPHILIS) AB INDEX <0.10 <=1.[address] [facility] Comment: <0.90 - Negative 0.90 to 1.00 - Equivocal ?? Patients with equivocal results should be retested in 7-14 days. >=1.10 - Positive NOTE: ??All equivocal and positive results will be reflexed to Quantitative Non-Treponemal(RPR)test. Blood specimen (specimen) 05/20/2013 12:20 AM EDT 05/20/2013 1:10 AM EDT us Lisa Richard DO CHEMISTRY ORDERABLES Final Resul t [facility] [address] [place] [id number] documented in this encounter Visit Diagnoses Diagnosis Active labor- Primary Normal delivery Active labor Normal delivery documented in this encounter Administered Medications Inactive Administered Medications - up to 1 most recent administrations Medication Order MAR Action Action Date Dose Rate Site butorphanol (STADOL) 1 mg/mL injection 1 dose, Starting on Sat05/20/13 at 0034, Until Sat05/20/13 at 0040, LIFE, HOSSEIN: cabinet override Given 05/20/2013 12:40 AM EDT ibuprofen (ADVIL;MOTRIN) tablet 600 mg 600 mg, Oral, *EVERY 6 HOURS, First dose on Sat05/20/13 at 0245, Until Discontinued, Post-op Given 05/21/2013 11:50 AM EDT 600 mg lactated ringers infusion Intravenous, at 125 mL/hr, CONTINUOUS, Starting on Sat05/20/13 at 0045, Until Mae 05/21/13 at 0344 New Bag 05/20/2013 12:20 AM EDT 125 mL/hr oxyCODONE-acetaminophen (PERCOCET) 5-325 mg per tablet 1-2 Tab 1-2 Tablet, Oral, EVERY 4 HOURS PRN, Starting on Sat05/20/13 at 0230, Until Mae 05/21/13 at 1837, Moderate Pain (Pain Score 4-7), Severe Pain (Pain Score 8-10), Give 1 tab for moderate pain, give 2 tabs for severe pain after [employer] or Duramorph precautions Maximum adult dose of acetaminophen is 4000 mg from all sources in 24 hours. , Post-op Given 05/20/2013 8:43 PM EDT 1 Tablet oxytocin (PITOCIN) 10 unit/mL injection 1 dose, Starting on Sat05/20/13 at 0024, Until Sat05/20/13 at 0030, CARLA SESAY: cabinet override Given 05/20/2013 12:30 AM EDT Rho D Immune Globulin (HYPERHO S/D) injection 300 mcg 300 mcg, Intramuscular, ONCE, 1 dose, On Sat05/20/13 at 0915 Given 05/21/2013 2:10 PM EDT 300 mcg Right Upper Outer Quadrant documented in this encounter Active and Recently Administered Medications Times are shown in EDT. Scheduled Medication Order 05/19/2013 05/20/2013 05/21/2013 ibuprofen (ADVIL;MOTRIN) tablet 600 mg 600 mg, Oral, *EVERY 6 HOURS, First dose on Sat05/20/13 at 0245, Until Discontinued, Post-op 0245 (Not Given - Provider: Candice Nicole RN - Reason: Patient/family refused)0845 (Canceled Entry - Provider: Kelsi Cardoso RN)1220 (Given - Provider: Kelsi Cardoso RN)1750 (Given - Provider: Kelsi Cardoso RN) 0038 (Given - Provider: Mariola Mast RN)0600 (Given - Provider: Mariola Mast RN)1150 (Given - Provider: Kenisha Valadez, ALVARO) Rho D Immune Globulin (HYPERHO S/D) injection 300 mcg (COMPLETED) 300 mcg, Intramuscular, ONCE, 1 dose, On Sat05/20/13 at 0915 0915 (Not Given - Provider: Kelsi Cardoso RN - Reason: Other - Comment: will receive tomorrow after they collect PPD #1 bloodwork) 1410 (Given - Provider: Kenisha Valadez, ALVARO) senna-docusate (SENOKOT-S) 8.6-50 mg per tablet 2 Tab 2 Tablet, Oral, NIGHTLY, First dose on Sat05/20/13 at 0245, Until Discontinued, Until BM, then discontinue, Post-op 0245 (Not Given - Provider: Candice Nicole RN - Reason: Patient/family refused)2200 (Not Given - Provider: Mariola Mast RN - Reason: Patient/family refused) Continuous Medication Order 05/19/2013 05/20/2013 05/21/2013 lactated ringers infusion (CANCELED) Intravenous, at 125 mL/hr, CONTINUOUS, Starting on Sat05/20/13 at 0045, Until Mae 05/21/13 at 0344 0020 (New Bag - Provider: Porsche Holm RN - Comment: lr # 1 up) PRN Medication Order 05/19/2013 05/20/2013 05/21/2013 oxyCODONE-acetaminophen (PERCOCET) 5-325 mg per tablet 1-2 Tab 1-2 Tablet, Oral, EVERY 4 HOURS PRN, Starting on Sat05/20/13 at 0230, Until Mae 05/21/13 at 1837, Moderate Pain (Pain Score 4-7), Severe Pain (Pain Score 8-10), Give 1 tab for moderate pain, give 2 tabs for severe pain after [employer] or Duramorph precautions Maximum adult dose of acetaminophen is 4000 mg from all sources in 24 hours. , Post-op 2042 (Given - Provider: Mariola Mast RN) No Frequency Medication Order 05/19/2013 05/20/2013 05/21/2013 butorphanol (STADOL) 1 mg/mL injection (COMPLETED) 1 dose, Starting on Sat05/20/13 at 0034, Until Sat05/20/13 at 0040, HOSSENI RAMACHANDRAN: cabinet override 0040 (Given - Provider: Candice Nicole RN) oxytocin (PITOCIN) 10 unit/mL injection (COMPLETED) 1 dose, Starting on Sat05/20/13 at 0024, Until Sat05/20/13 at 0030, CARLA SESAY: cabinet override 0030 (Given - Provider: Candice Nicole RN) documented in this encounter Orders Medications Ordered That Oscar ht Not Have Been Administered Count Last Ordered Date First Ordered Date Rho D Immune Globulin (HYPER HO S/D) injection 300 mcg 1 05/21/2013 aluminum & magnesium hydroxi de-simethicone 200-200-20 mg/5 mL suspension 30 mL 1 05/20/2013 tvyhunlgkc-liecoxr-alxi vera (DERMOPLAST) 20-0.5 % topical spray Aero 1 05/20/2013 hydrocortisone 1 % cream 1 05/20/2013 lanolin ointment 1 05/20/2013 oxytocin (PITOCIN) 20 units in LR 1000 mL 1 05/20/2013 senna-docusate (SENOKOT-S) 8 .6-50 mg per tablet 2 Tab 1 05/20/2013 witch les-glycerin (TUCKS) pad 1 05/20/20 13 Lab Orders Without Results Count Last Ordered D ate First Ordered Date RHIG 2 05/21/2013 05/20/2013 Nursing Count Last Ordered Date First Orde red Date ADMIT 1 05/20/2013 VITAL SIGNS 2 05/20/2013 VITAL SIGNS - NOTIFY 1 05/20/2013 Consult Count Last Ordered Date First Orde red Date IP CONSULT TO SOCIAL WORK 2 05/21/2013 Nourishments Count Last Ordered Date First Orde red Date ICE CHIPS 5 05/21/2013 05/20/2013 Discharge Count Last Ordered Date First Orde red Date DISCHARGE PATIENT 1 05/21/2013 documented in this encounter
--- OUTSIDE RECORDS SUMMARY | 2024-06-12 13:28 | XMS_ITS | Encounter Summary ---
Author Organization [place] [address] Care Team Providers Care Players Assistant Name Role Phone Unavailable Primary Care Provider Unavailabl e Reason for Visit * Auth/Cert/Inpt - Closed Specialty Diagnoses / Procedures Referred By Contac t Referred To Contact Obstetrics [facility] Maternal Center [facility] [address] [place] [address] Phone: tel: fax: Referral ID Status Reason Start Date Expiration Date Visits Re quested Visits Authorized [id number] Closed 03/27/2013 09/23/2013 1 1 Encounter Details Date Type Department Care Team (Latest Contact Info) Description 03/20/2013 3:04 PM EDT - 03/20/2013 11:59 PM EDT Hospital Encounter [facility] [place] [address] Kosta Hyman MD [address] [place] [address] Unspecified abnormality affecting management of mother, antepartum condition or complication Discharge Disposition: Home or Self Care Social History Tobacco Use Types Packs/Day Years Used Date Smoking Tobacco: Never Assessed Comments Yes Sex and Gender Information Value Date Recorded Sex Assigned at Not on file Legal Sex Female 3:25 PM EDT Gender Identity Not on file Sexual Orientation Not on file documented as of this encounter Medications at Time of Discharge ondansetron (ZOFRAN-ODT) 4 mg disintegrating tablet Take by mouth once. 4 documented as of this encounter Discharge Disposition Disposition Code Departure Means Destination Home or Self Care documented in this encounter Miscellaneous Notes * Miscellaneous - Unknown, Unknown - 03/24/2013 8:01 AM EDT documented in this encounter Plan of Treatment Not on file documented as of this encounter Procedures Procedure Name Priority Date/Time Associated Diagnosis Comments PN US OB DETAIL ANATOMY SINGLE OR FIRST GESTATION Routine 03/20/2013 4:27 PM EDT Unspecified abnormality affecting management of mother, antepartum condition or complication documented in this encounter Results * PN US OB DETAIL ANATOMY SINGLE OR FIRST GESTATION (03/20/2013 4:27 PM EDT) Anatomical Region Laterality Modality Pelvis Ultrasound 03/20/2013 us Kosta Hyman MD IMG ORDERABLES Fin al Result documented in this encounter Visit Diagnoses Diagnosis Unspecified abnormality affecting management of mother, antepartum condition or complication documented in this encounter
--- OUTSIDE RECORDS SUMMARY | 2024-06-12 13:28 | XMS_ITS | Encounter Summary ---
Author Organization [place] [address] Care Team Providers Care Production Line Technician Name Role Phone Unavailable Primary Care Provider Unavailabl e Reason for Visit * Reason Comments Ip Rhogam Injection Encounter Details Date Type Department Care Team (Latest Contact Info) Description 02/17/2014 7:44 AM EDT - 02/17/2014 11:59 PM EDT Hospital Encounter [facility] Maternal Center [facility] [address] Floor [place] [phone] Rh negative state in antepartum period, third trimester, fetus 1 (Primary Dx) Discharge Disposition: Home or Self [...] Sign Reading Time Taken Comments Blood Pressure 97/59 02/17/2014 8:16 AM EDT Pulse 78 02/17/2014 8:16 AM EDT Temperature 36.8 ??C (98.2 ??F) 02/17/2014 8:16 AM ED T Respiratory Rate - - Oxygen Saturation - - Inhaled Oxygen Concentration - - Weight - - Height - - Body Mass Index - - documented in this encounter Medications at Time of Discharge ondansetron (ZOFRAN-ODT) 4 mg disintegrating tablet Take by mouth once. 4 oxyCODONE-acetaminop hen (PERCOCET) 5-325 mg per tablet Take 1 Tab by mouth every 6 hours as needed. 10 Tab 0 05/21/2013 4 promethazine (PHENERGAN) 25 mg tablet Take by mouth every 6 hours as needed for Nausea. 4 documented as of this encounter Discharge Disposition Disposition Code Departure Means Destination Home or Self Care documented in this encounter Progress Notes * Unknown, Unknown - 02/17/2014 8:59 AM EDT * Sanna Bartholomew RN - 02/17/2014 8:20 AM EDT VITALS: Heart Rate: 146 Heart Rate: 78 BP: 97/59 mmHg Temp: 98.2 ??F (36.8 ??C) Administrations This Visit Rho D Immune Globulin (HYPERHO S/D) injection 300 mcg Administered Action Dose Route Administered By 02/17/2014 Given 300 mcg Intramuscular Sanna Bartholomew RN Lot #: [id number] Expiration Date: 04/30/2015 RHOGAM INJECTION: A consent form was signed [...] Date/Time Associated Diagnosis Comments RHIG REQUEST Routine 02/17/2014 8:58 AM EDT Rh negative state in antepartum period, third trimester, fetus 1 documented in this encounter Results * RHIG REQUEST (02/17/2014 8:58 AM EDT) Wks Gest/Reason 31 weeks [facility] RhIG Lot Number [id number] [facility] RhIG Text [facility] Blood specimen (specimen) 02/17/2014 8:58 AM EDT 02/17/2014 8:58 AM EDT us Kosta Hyman MD BLOOD PRODUCT ORDERS Final R esult Performing Organization Address City/State/[facility] Co de Phone Number [facility] [address] [place] [address] documented in this encounter Visit Diagnoses Diagnosis Rh negative state in antepartum period, third trimester, fetus 1- Primary documented in this encounter Historical Medications * This list may reflect changes made after this encounter. promethazine (PHENERGAN) 25 mg tablet Take by mouth every 6 hours as needed for Nausea. 04/15/2014 added in this encounter
--- OUTSIDE RECORDS SUMMARY | 2024-06-12 13:28 | XMS_ITS | Encounter Summary ---
Author Organization [facility] Address [facility] [place] [address] Care Team Providers Care Supervisor Mixing Name Role Phone Unavailable Primary Care Provider Unavailabl e Reason for Visit * Reason Comments Rule Out Labor * Auth/Cert/Inpt - Closed Specialty Diagnoses / Procedures Referred By Contcapo t Referred To Contact Referral ID Status Reason Start Date Expiration Date Visits Re quested Visits Authorized [id number] Closed 1 1 Encounter Details Date Type Department Care Team (Latest Contact Info) Description 04/14/2014 2:35 PM EDT - 04/15/2014 7:15 PM EDT Hospital Encounter EDG [facility] [place] [address] Yana Matson MD Discharge Disposition: Home or Self Care Social History Tobacco Use Types Packs/Day Years Used Date Smoking Tobacco: Every Day Cigarettes 0.3 14 Tobacco Cessation:Counseling Given: Yes Alcohol Use Standard Drinks/Week Comments No 0 (1 standard drink = 0.6 oz pur e alcohol) Comments No Sex and Gender Information Value Date Recorded Sex Assigned at Not on file Legal Sex Female 3:25 PM EDT Gender Identity Not on file Sexual Orientation Not on file documented as of this encounter Last Filed Vital Signs Vital Sign Reading Time Taken Comments Blood Pressure 116/61 04/15/2014 2:48 PM EDT Pulse 66 04/15/2014 2:48 PM EDT Temperature 36.6 ??C (97.8 ??F) 04/15/2014 2:48 PM ED T Respiratory Rate 18 04/15/2014 2:48 PM EDT Oxygen Saturation - - Inhaled Oxygen Concentration - - Weight - - Height - - Body Mass Index - - documented in this encounter Discharge Instructions * Discharge Instructions* Christy Robles, ALVARO - 04/15/2014 5:52 PM EDT [facility] Maternal Care and Discharge Instructions ACTIVITY - [...] fluids (especially water) will help prevent constipation. Ieac-bgm-[id number] stool softeners may be used, if needed. [...] pain, shortness of breath or persistent depression. [facility] Medication for Treatment of Pain, Cramping [...] brown) ?? Black, tarry or bloody stools [facility] Medication for Treatment of Moderate to [...] Change in amount of urine you make [facility] Maternal Discharge Summary You have been discharged by your doctor. If you have questions or concerns about yourself, call your doctor. Feel free to call us at [facility] if we can help you. Elena Fang [phone] 04/15/2014 [address] [place] [address] I verify that I have received and understand my discharge instructions. I feel competent to care for myself. My questions have been answered to my satisfaction. X April 15, 2014 __Anai Robles RN___ Patient Date R.N. documented in this encounter Ordered Prescriptions Prescription Sig Dispense Quantity Refills Last Filled Start Date End Date ibuprofen (ADVIL;MOTRIN) 600 mg Oral Tablet Take 1 tablet by mouth every 6 hours as needed for Pain. 160 tablet 2 04/15/2014 03/26/2017 documented in this encounter Discharge Disposition Disposition Code Departure Means Destination Home or Self Detention documented in this encounter Progress Notes * Lesa Lpoes MSW - 04/15/2014 4:09 PM EDT The MOB had a positive tox screen for amphetamines. MOB informed RN that she took a night-time coldmedicine prior to delivery. This could account for the amphetamines in her tox screen. The Ba's toxscreen is pending. The SW will f/u outpt if needed re: results. There are no concerns at this time.Upon doctor's approval, MOB and BA can be discharged home together. * Juan Pickard, Medical Student - 04/15/2014 7:49 AM EDT [facility] Post Vaginal Delivery Progress Note Subjective: day: 1 The patient feels well. She has lower abdominal cramps, at a 6/10 pain level, that are well controlled with current medications. Baby Ruperto is doing well and is being bottle fed. The patient is ambulating around her room occasionally. The patient's diet is strrong with good UOP, but no BM or flatus yet. She has menses-level bleeding, but has passed no clots. Objective: Lab Results Component Value Date WBC 8.2 04/15/2014 RBC 2.74* 04/15/2014 HGB 9.7* 04/15/2014 HCT 27.2* 04/15/2014 MCV 99.3 04/15/2014 MCHC 35.6* 04/15/2014 RDW 13.4 04/15/2014 PLT 163 04/15/2014 MPV 8.3 04/15/2014 Patient Vitals for the past 12 hrs: BP Temp Temp src Pulse Resp 04/15/14 0410 107/62 mmHg 97.3 ??F (36.3 ??C) Oral 74 20 04/15/14 0014 114/63 mmHg 97.6 ??F (36.4 ??C) Oral 70 16 Temp (24hrs), Av.7 ??F (36.5 ??C), Min:97.3 ??F (36.3 ??C), Max:98.2 ??F (36.8 ??C) General: alert, well appearing, in no apparent distress Abdominal: LLQ and RLQ are sore, but non-tender Lochia: appropriate Uterine Fundus: firm Perineum: Intact Assessment: Elena Fang is a 33 yo status post vaginal delivery PPD #1 who is doing well andrecovering appropriately. Plan: Baby Ruperto's circumcision will be performed at 9:30 AM today. Procedure, risks and maintenance discussed with patient. Daily ferrous sulfate supplement prescribed, due to anemia. CBC will be repeated tomorrow AM. Patient will likely be discharged home tomorrow AM, pending 24 hr labs for baby. Ambulation was encouraged to patient. Patient understands and agrees with plan. Titus Pollard Stud Cosigned by Ksota Ko MD at 04/15/2014 10:02 AM EDT * Jojo Bhatia RN - 04/14/2014 5:51 PM EDT Pt with urge to void. Assisted to restroom. Able to void 200mls. No complaints of dizziness. Linensand gown changed. documented in this encounter H&P Notes * Juan Pickard Medical Student - 04/14/2014 3:27 PM EDT [facility] OB Labor History and Physical Name: Elena Fang Age: 33 y.o. Race: : 5 Para: T 4 P 0 A 0 L 4 Name of Clinic: [facility] Onset of Labor: Yesterday ROM: No evidence of ruptured membranes Fluid color: None HPI: Contractions began last week sporadically. LMP: 07/2013 EDC: 04/18/2014 EGA: 39w3d US: 29 wks. Placental Location: Anterior US EDC: 04/18/2014 Other Findings: Iker breech Course: Patient took vitamins and was seen for care at [facility]. Prior OB Hx: # 4 All 4 deliveries were vaginal. The first three births were induced, and the 4th was spontaneous. No complications with any of the pregnancies. Labs: ABORH: O-negative ABS: neg RPR: Non-reactive Rubella: Immune (01/13) HIV: neg HBsag: neg GC/Chlamydia: neg/neg GBS: Results sent, but not back yet Pap Smear: neg 2 hr. GTT: Not done Recent Results (from the past 6048 hour(s)) ANTIBODY SCREEN IGG Collection Time 02/17/14 7:34 AM Result Value Range ABSC IgG Int Negative ABORH Collection Time 02/17/14 7:34 AM Result Value Range ABORh Int O NEG No results found for this or any previous visit (from the past 6048 hour(s)). Past Med Hx: Non-contributory Allergies: No Known Allergies Medical Hx: History reviewed. No pertinent past medical history. Surgical Hx: History reviewed. No pertinent past surgical history. Family Hx: Family History Problem Relation Age of Onset ??? Hypertension Brother ??? Cancer Paternal Grandmother ??? Cancer Maternal Grandmother Social Hx: History Social History ??? Marital Status: Legally Spouse Name: N/A Number of Children: N/A ??? Years of Education: N/A Occupational History ??? Not on file. Social History Main Topics ??? Smoking status: Current Every Day Smoker -- 0.25 packs/day for 14 years Types: Cigarettes ??? Smokeless tobacco: Not on file ??? Alcohol Use: No ??? Drug Use: Yes Special: Marijuana Comment: Pt st No longer using since last visit ??? Sexual Activity: Not on file Other Topics Concern ??? Not on file Social History Narrative ??? No narrative on file Meds: No current facility-administered medications on file prior to encounter. Current Outpatient Prescriptions on File Prior to Encounter Medication Sig Dispense Refill ??? promethazine (PHENERGAN) 25 mg tablet Take by mouth every 6 hours as needed for Nausea. ??? vit-iron fumarate-FA 27-0.8 mg Tab Take 1 Tab by mouth daily. ??? ibuprofen (ADVIL;MOTRIN) 600 mg tablet Take 1 Tab by mouth every 6 hours. 30 Tab 1 ??? oxyCODONE-acetaminophen (PERCOCET) 5-325 mg per tablet Take 1 Tab by mouth every 6 hours as needed. 10 Tab 0 ??? senna-docusate (SENOKOT-S) 8.6-50 mg per tablet Take 2 Tabs by mouth nightly. 30 Tab 1 ??? ondansetron (ZOFRAN-ODT) 4 mg disintegrating tablet Take by mouth once. Review of Systems: The listed systems were reviewed and reveal the following in addition to any already discussed in the HPI: ?? Constitutional: No fever, chills, malaise. ?? Lungs: No SOB, cough, wheezing. ?? Cardiovascular: No chest pain, palpitations, high blood pressure. ?? Endocrine: No increased urination, hyperglycemia, heat/cold intolerance ?? GI: No nausea, vomiting, abdominal pain ?? : No dysuria, flank pain ?? Musculoskeletal: No edema, myalgias ?? Neurologic: No headache, dizziness ?? Skin: No rashes, wounds Physical Exam: Vitals: Filed Vitals: 04/14/14 1504 BP: 141/64 Pulse: 122 Temp: 98.2 ??F (36.8 ??C) Resp: 18 Height: Weight: General: alert, well developed, well nourished, in no acute distress Skin: warm, well perfused and no rashes Eyes: Pupils equal, round and reactive to light and Extraocular movements intact HENT: ENT exam normal, mucous membranes moist Lungs: clear to auscultation bilaterally Heart: Regular rate and rhythm. No murmurs, rubs, or gallops Breasts: not examined Abdomen: abdomen is soft, nontender, and nondistended without hepatosplenomegaly or masses, normoactive bowel sounds are present Extremities: normal muscle bulk with no contractures or deformities Neurological normal without focal findings, mental status, speech normal, alert and oriented x3 andPERLA Reflexes 2+ Fundal Height: S=D Presentation: cephalic FHT: 140 bpm Contractions: Frequency: Every 2-3 Cervix: Dilation: 9 cm Effacement: 100 % Station: +2 Assessment: Elena Fang is a 33 y.o. female at 39w3d, presenting with contractions every 2-3 min. Plan: Admit for labor and delivery. Expectant management. Signature: Juan Pickard, Medical Stud Date: 04/14/2014 3:27 PM Cosigned by Yana Matson MD at 04/15/2014 6:44 PM EDT documented in this encounter Procedure Notes * Nely Boswell CNM - 04/14/2014 3:58 PM EDT Delivery Information for Elena Fang Labor Events: labor: Rupture date: 04/14/2014 Rupture time: 3:37 PM Rupture type: Artificial Fluid Color: Clear Induction: Augmentation: AROM Complications: Cervical ripening: Delivery: Episiotomy: n/a Lacerations: none Repair suture: none Repair # of packets: n/a Blood loss (ml): 300 information: Date of : 04/14/2014 Time of : 3:44 PM Sex: male Delivery type: Vaginal, Spontaneous Delivery Gestational Age: <None> Delivery Clinician: Nely Boswell CNM, Camden Pickard III Living?: Yes APGARS One minute Five minutes Ten minutes Fifteen minutes Twenty minutes Skin color: 1 1 Heart rate: 2 2 Grimace: 2 2 Muscle tone: 2 2 Breathin 2 Totals: 9 9 Presentation/position: Vertex Right Occiput Anterior Resuscitation: Warm Dry Position Bulb Suction Cord information: 3 Vessels Disposition of cord blood: Lab Blood gases sent? No Complications: None Placenta: Delivered: 04/14/2014 3:48 PM Manual Removal Spontaneous Intact appearance [place] Measurements: Weight: Height: inches Head circumference: inches Other providers: Delivery Nurse Instructor Jojo Robertson Additional information: Forceps: None Vacuum: None Breech: Observed anomalies Disposition: Elena and moe renner Ruperto in good condition in regular recovery in LDRP. Nely Boswell CNM documented in this encounter Consult Notes * Lesa Lopes, EXECUTIVE TALENT ACQUISITION CONSULTANT - 04/15/2014 12:31 PM EDTAssociated Order(s): IP CONSULT TO SOCIAL WORK The SW met with MOB. MOB was holding BA appropriately. The MOB stated she has all needed baby items, on Medicaid, receives WIC, has transportation, has four other children at home (all boys, ages 13,8, 7, and 1 yr old), and receives foodstamps. PGM lives in the home and receives SSDI. The FOB and MOB are both unemployed. The MOB had care and denies any drug use. The MOB had a positive tox screen for amphetamines. The Ba's tox screen is pending. The SW will f/u outpt if needed re: results. There are no concerns at this time. Upon doctor's approval, MOB and BA can be discharged home together. documented in this encounter ED Notes * Unknown, Unknown - 04/15/2014 1:56 PM EDT documented in this encounter Miscellaneous Notes * Plan of Care - Rosibel Lind RN - 04/14/2014 8:55 PM EDT Problem: Pain Management Alteration in comfort level related to pain from surgical procedure/birthing process Goal: The patient???s stated pain goal will be reached and maintained. Outcome: Progressing PRN pain medication Problem: Potential for infection related to: Vaginal tears or lacerations, surgical episiotomy or abdominal incision, uterine or urinary tract infection, invasive lines (Og, straight cath, IV) Goal: Patient will be free from infection Outcome: Progressing No s/s infection Problem: Fluid balance R/T dehydration, blood loss/vessel injury and/or trauma. Goal: Patient will be adequately hydrated Patient will be adequately hydrated, without s/s of uterine atony/hemorrhage and/or hematoma formation. Outcome: Progressing No s/s hemorrhage. Lochia WNL. Education given on lochia changes. Pt tolerates PO intake. FF at U/1. Problem: Potential for altered GI/ elimination Goal: Patient will have active bowel sounds and urinary output Outcome: Progressing Pt voiding. Encourage PO intake, frequent voiding, and pad changes. Problem: Altered Parenting Goal: Positive bonding is demonstrated Outcome: Progressing + bonding noted Problem: Knowledge deficit related to maternal and care Goal: Patient/family will verbalize understanding of education and have had an opportunity to ask questions Outcome: Progressing Educated about q 3 hour feeds/feeding on demand. Educated about normal feeding/elimination patterns. Educated about infant cues. Encouraged pt to call RN for assistance. Educated about normal lochia, changes, and when to call RN. Problem: Knowledge deficit related to Goal: Patient will verbalize/demonstrate appropriate strategies/techniques Outcome: Completed Date Met: 04/14/14 Bottle feeding Problem: Safety: Fall Risk Goal: Patient will be free from falls. Outcome: Progressing Pt independent. Educated about fall safety Problem: OB Skin Integrity Goal: Skin remain intact Outcome: Progressing Turns self documented in this encounter Plan of Treatment Pending Results Name Type Priority Associated Diagnoses Date /Time CROSSMATCH SUMMARY Blood Bank Routine 2013 3:22 PM EDT Scheduled Orders Name Type Priority Associated Diagnoses Orde r Schedule IP CONSULT TO Consult Routine One Time for 1 Occurrences starting 04/14/2014 until 04/14/2014 CROSSMATCH SUMMARY Blood Bank Routine Once f or 1 Occurrences starting 04/14/2014 until 04/14/2014 documented as of this encounter Procedures Procedure Name Priority Date/Time Associated Diagnosis Comments DIFFERENTIAL Routine 04/15/2014 5:32 AM EDT CBC WITH DIFF Routine 04/15/2014 5:32 AM EDT IP CONSULT TO SOCIAL WORK Routine 04/14/2014 4:18 PM EDT Procedure Note - Lesa Lopes, EXECUTIVE TALENT ACQUISITION CONSULTANT - 04/15/2014 12:31 PM EDTThis note is in progress. The SW met with MOB. MOB was holding BA appropriately. The MOB stated shehas all needed baby items, on Medicaid, receives WIC, has transportation,has four other children at home (all boys, ages 13, 8, 7, and 1 yr old),and receives foodstamps. PGM lives in the home and receives SSDI. The FOBand MOB are both unemployed. The MOB had care and denies anydrug use. The MOB had a positive tox screen for amphetamines. The Ba'stox screen is pending. The SW will f/u outpt if needed re: results.There are no concerns at this time. Upon doctor's approval, MOB and BA canbe discharged home together. DRUGS OF ABUSE, SCREEN ONLY, URINE Routine 04/14/2014 3:30 PM EDT DRUG CONFIRMATION, AMPHETAMINES, URINE Routine 04/14/2014 3:28 PM EDT SYPHILIS SCREEN WITH REFLEX RPR QUANT STAT 04/14/2014 3:22 PM EDT CBC STAT 04/14/2014 3:22 PM EDT ABORH Routine 04/14/2014 3:22 PM EDT ANTIBODY SCREEN IGG Routine 04/14/2014 3 :22 PM EDT documented in this encounter Results * DIFFERENTIAL (04/15/2014 5:32 AM EDT) Neut Percent 71.8 % [facility] Lymph Percent 21.9 % [facility] [place] Percent 5.1 % [facility] Eos Percent 1.1 % [facility] Baso Percent 0.1 % [facility] Neut# 5.9 1.8 - 7.7 x10(3)/mcL [facility] Lymph# 1.8 0.6 - 4.8 x10(3)/mcL [facility] [place]# 0.4 0.0 - 1.3 x10(3)/mcL [facility] Eos# 0.1 0.0 - 0.5 x10(3)/mcL [facility] Baso# 0.0 0.0 - 0.2 x10(3)/mcL [facility] Blood specimen (specimen) 04/15/2014 5:32 AM EDT 04/15/2014 6:22 AM EDT Nely Boswell CNM HEMATOLOGY ORDERABLES Final Re sult [facility] [address] [place] [address] * (ABNORMAL) CBC WITH AUTO DIFF (04/15/2014 5:32 AM EDT) WBC 8.2 4.0 - 11.0 x10(3)/mcL [facility] RBC 2.74(L) 3.80 - 5.10 x10(6)/mcL [facility] Hgb 9.7(L) 12.0 - 15.6 gm/dL [facility] Hct 27.2(L) 35.7 - 45.9 % [facility] MCV 99.3 82.5 - 99.8 fL [facility] MCH 35.3(H) 27.0 - 34.3 pg [facility] MCHC 35.6(H) 32.1 - 35.3 gm/dL [facility] RDW 13.4 11.5 - 15.0 % [facility] Platelet 163 144 - 423 x10(3)/mcL [facility] MPV 8.3 6.8 - 10.8 fL [facility] Blood specimen (specimen) UPPER LIMB STRUCTURE / Unknown 04/15/2014 5:32 AM EDT 04/15/2014 6:22 AM EDT us Nely Boswell CN HEMATOLOGY ORDERABLES Final Re sult [facility] [address] [place] [address] * (ABNORMAL) DRUGS OF ABUSE, SCREEN ONLY, URINE (04/14/2014 3:30 PM EDT) Cannaboinoid Screen, Urine Absent 50 ng/mL [facility] Benzodiazepines Screen Absent 200 ng/mL [facility] Cocaine(Metab.)Scr een, Urine Absent 150 ng/mL [facility] Opiate 300 Screen Absent 300 ng/mL [facility] Barbiturate Screen, Urine Absent 200 ng/mL [facility] Amphetamine Screen, Urine Presumptive Pos(A) 500 ng/mL [facility] Phencyclidine Screen Absent 25 ng/mL [facility] Methadone Screen, Urine Absent 300 ng/mL [facility] Oxycodone Screen Absent 100 ng/mL [facility] 6 AM (Heroin) Screen Absent 10 ng/mL [facility] Buprenorphine Screen Absent 5 ng/mL [facility] Creatinine Ur 145.0 mg/dL [facility] Comment: Greater than 20: Consistent with valid sample Greater than 2 but less than 20: Possible dilution Less than 2: Questionable valid sample Drug Screen Note These drug classes have been screened by immunoassay and are for medical purposes only. The results should not be used for non-medical purposes. If confirmation is desired, please place a separate order for each drug confirmation. Specimens will be saved for 3 business days should additional orders/testing be desired. [facility] Urine specimen (specimen) 04/14/2014 3:30 PM EDT 04/14/2014 3:30 PM EDT us Nely Boswell CNM URINE ORDERABLES Final Result Performing Organization Address [facility] Co de Phone Number [facility] [address] [place] [address] * DRUG CONFIRMATION, AMPHETAMINES, URINE (04/14/2014 3:28 PM EDT) U Amphetamines Conf NEG Cutoff:50 ng/mL [facility] U MDA NEG Cutoff:50 ng/mL [facility] U MDEA NEG Cutoff:50 ng/mL [facility] U MDMA NEG Cutoff:50 ng/mL [facility] U Methamphetamine NEG Cutoff:50 ng/mL [facility] Comment: Performed at: ??[facility] ? [address], [address] ? [place] [address] Urine specimen (specimen) 04/14/2014 3:28 PM EDT 04/16/2014 4:57 PM EDT Narrative [facility] - 04/21/2014 12:30 PM EDT Draw off specimen already in lab Kosta Ko MD URINE ORDERABLES Final Result Performing Organization Address [facility] de Phone Number [facility] [address] [place] [address] * (ABNORMAL) ANTIBODY SCREEN IGG (04/14/2014 3:22 PM EDT) Pathologist [facility] ABSC IgG Int Positive( A) [facility] Comment: 04/14/2014 17:30 ??AGERNER Patient demonstrates Anti-D. Source of Anti-D not determined and may be due to Rh Immune Globulin given on(date): 02/17/14 at (facility): _.[facility] If further workup is desired, contact the Blood Bank at [place]:[phone]. Blood specimen (specimen) 04/14/2014 3:22 PM EDT 04/14/2014 3:35 PM EDT Nely Boswell [facility] ORDERABLES Final Re sult Performing Organization Address [facility] Co de Phone Number [facility] [address] [place] [address] * ABORH (04/14/2014 3:22 PM EDT) Pathologist [facility] ABOR Int O NEG [facility] Blood specimen (specimen) 04/14/2014 3:22 PM EDT 04/14/2014 3:35 PM EDT Nely Boswell [facility] ORDERABLES Edited R esult - Final Performing Organization Address [facility] de Phone Number [facility] [address] [place] [address] * SYPHILIS SCREEN WITH REFLEX RPR QUANT (04/14/2014 3:22 PM EDT) Pathologist [facility] TREP(SYPHILIS) AB INDEX <0.10 <=1.09 Index Value [facility] Comment: <0.90 - Negative 0.90 to 1.00 - Equivocal ?? Patients with equivocal results should be retested in 7-14 days. >=1.10 - Positive NOTE: ??All equivocal and positive results will be reflexed to Quantitative Non-Treponemal(RPR)test. Blood specimen (specimen) UPPER LIMB STRUCTURE / Unknown 04/14/2014 3:22 PM EDT 04/14/2014 3:35 PM EDT Nely Mandi Elbert COLES CHEMISTRY ORDERABLES Final Res ult Performing Organization Address [facility] Co de Phone Number [facility] [address] [place] [address] * (ABNORMAL) CBC (04/14/2014 3:22 PM EDT) Pathologist [facility] WBC 12.2(H) 4.0 - 11.0 x10(3)/mcL [facility] RBC 3.54(L) 3.80 - 5.10 x10(6)/mcL [facility] Hgb 12.3 12.0 - 15.6 gm/dL [facility] Hct 35.1(L) 35.7 - 45.9 % [facility] MCV 99.3 82.5 - 99.8 fL [facility] MCH 34.8(H) 27.0 - 34.3 pg [facility] MCHC 35.1 32.1 - 35.3 gm/dL [facility] [facility] RDW 13.2 11.5 - 15.0 % [facility] Platelet 183 144 - 423 x10(3)/mcL [facility] MPV 8.5 6.8 - 10.8 fL [facility] Blood specimen (specimen) UPPER LIMB STRUCTURE / Unknown 04/14/2014 3:22 PM EDT 04/14/2014 3:35 PM EDT us Nely COLES HEMATOLOGY ORDERABLES Final Re sult [facility] [address] [place] [address] documented in this encounter Visit Diagnoses Diagnosis (normal spontaneous vaginal delivery) Normal delivery documented in this encounter Administered Medications Inactive Administered Medications - up to 1 most recent administrations Medication Order MAR Action Action Date Dose Rate Site ferrous sulfate tablet 325 mg 325 mg, Oral, DAILY WITH MEAL, First dose on Sat04/15/14 at 0845, Until Discontinued Given 04/15/2014 12:40 PM EDT 325 mg ibuprofen (ADVIL;MOTRIN) tablet 600 mg 600 mg, Oral, EVERY 6 HOURS PRN, Starting on Sat04/14/14 at 1618, Until Sat04/16/14 at 0016, Mild Pain (Pain Score 1-3), Post-op Given 04/15/2014 12:38 PM EDT 600 mg oxytocin (PITOCIN) 20 units in LR 1000 mL (after placenta delivery) Intravenous, at 999 mL/hr, CONTINUOUS PRN, 1 dose, Starting on Sat04/14/14 at 1525, Until Sat04/14/14 at 1549, Begin after delivery of placenta and continue until bleeding/vital signs are stable New Bag 04/14/2014 3:49 PM EDT 999 mL/hr senna-docusate (SENOKOT-S) 8.6-50 mg per tablet 2 tablet 2 Tablet, Oral, NIGHTLY, First dose on Sat04/14/14 at 2200, Until Discontinued, Until BM, then discontinue, Post-op Given 04/14/2014 10:06 PM EDT 2 Tablets documented in this encounter Discontinued Medications Medication Sig Discontinue Reason Start Date End Da te promethazine (PHENERGAN) 25 mg tablet Take by mouth every 6 hours as needed for Nausea. Stop Taking at Discharge 04/15/2014 oxyCODONE-acetaminophen (PERCOCET) 5-325 mg per tablet Take 1 Tab by mouth every 6 hours as needed. Stop Taking at Discharge 05/21/2013 04/15/2014 ondansetron (ZOFRAN-ODT) 4 mg disintegrating tablet Take by mouth once. Stop Taking at Discharge 04/15/2014 documented as of this encounter Active and Recently Administered Medications Times are shown in EDT. Scheduled Medication Order 04/13/2014 04/14/2014 04/15/2014 ferrous sulfate tablet 325 mg (CANCELED) 325 mg, Oral, DAILY WITH MEAL, First dose on Sat04/15/14 at 0845, Until Discontinued 1240 (Given - Provid er: Christy Robles RN) senna-docusate (SENOKOT-S) 8.6-50 mg per tablet 2 tablet (CANCELED) 2 Tablet, Oral, NIGHTLY, First dose on Sat04/14/14 at 2200, Until Discontinued, Until BM, then discontinue, Post-op 2206 (Given - Provider: Rosibel Lind, RN) PRN Medication Order 04/13/2014 04/14/2014 04/15/2014 ibuprofen (ADVIL;MOTRIN) tablet 600 mg (CANCELED) 600 mg, Oral, EVERY 6 HOURS PRN, Starting on Sat04/14/14 at 1618, Until Sat04/16/14 at 0016, Mild Pain (Pain Score 1-3), Post-op 1812 (Given - Provider: Jojo Bhatia RN) 0009 (Given - Provider: Rosibel Lind, RN)1238 (Given - Provider: Christy Robles, ALVARO) oxytocin (PITOCIN) 20 units in LR 1000 mL (after placenta delivery) (COMPLETED) Intravenous, at 999 mL/hr, CONTINUOUS PRN, 1 dose, Starting on Sat04/14/14 at 1525, Until 04/14/14 at 1549, Begin after delivery of placenta and continue until bleeding/vital signs are stable 1549 (New Bag - Provider: Jojo Bhatia RN) documented in this encounter Orders Medications Ordered That Oscar ht Not Have Been Administered Count Last Ordered Date First Ordered Date aluminum & magnesium hydroxi de-simethicone 200-200-20 mg/5 mL suspension 30 mL 1 04/14/2014 xdwzkcfqen-vdvhvwp-aric vera (DERMOPLAST) 20-0.5 % topical spray Aero 1 04/14/2014 hydrocortisone 1 % cream 1 04/14/2014 lactated ringers infusion 1 04/14/2014 lanolin ointment 1 04/14/2014 oxytocin (PITOCIN) 20 units in LR 1000 mL (after placenta delivery) 1 04/14/2014 Rho D Immune Globulin (HYPER HO S/D) injection 300 mcg 1 04/14/2014 Tdap (syringe) (ADACEL) injection 0.5 mL 1 04/14/2014 temazepam (RESTORIL) capsule 15 mg 1 2013 traMADol (ULTRAM) tablet 50-100 mg 1 2013 witch les-glycerin (TUCKS) pad 1 04/14/20 14 Lab Orders Without Results Count Last Ordered D ate First Ordered Date TYPE AND SCREEN 1 04/14/2014 Nursing Count Last Ordered Date First Orde red Date ADMISSION 1 04/14/2014 DISCHARGE INSTRUCTIONS 1 04/14/2014 UP WITH ASSISTANCE 1 04/14/2014 VAGINAL EXAM 1 04/14/2014 VITAL SIGNS 2 04/14/2014 VITAL SIGNS - NOTIFY 1 04/14/2014 Consult Count Last Ordered Date First Orde red Date IP CONSULT TO SOCIAL WORK 1 04/14/2014 Nourishments Count Last Ordered Date First Orde red Date ICE CHIPS 4 04/15/2014 04/14/2014 Discharge Count Last Ordered Date First Orde red Date DISCHARGE PATIENT 2 04/15/2014 documented in this encounter
--- OUTSIDE RECORDS SUMMARY | 2024-06-12 13:28 | XMS_ITS | Encounter Summary ---
Author Organization [place] Address [facility] [place] [address] Care Team Providers Care Circulator Name Role Phone Unavailable Primary Care Provider Unavailabl e Encounter Details Date Type Department Care Team (Latest Contact Info) Description 02/17/2014 7:22 AM EDT - 02/17/2014 7:43 AM EDT Hospital Encounter [facility] [place] [address] Supervision of other normal (Primary Dx) Discharge Disposition: Home or Self [...] 05/21/2013 4 documented as of this encounter Discharge Disposition Disposition Code Departure Means Destination Home or Self Care documented in this encounter Miscellaneous Notes * Miscellaneous - Unknown, Unknown - 02/17/2014 8:19 AM EDT documented in this encounter Plan of Treatment Scheduled Orders Name Type Priority Associated Diagnoses Orde r Schedule OP VENIPUNCTURE CHARGE Lab Timed Supervision of other normal One Time for 1 Occurrences starting 02/17/2014 until 02/17/2014 documented as of this encounter Procedures Procedure Name Priority Date/Time Associated Diagnosis Comments ABORH Routine 02/17/2014 7:34 AM EDT Supervision of other normal ANTIBODY SCREEN IGG Routine 02/17/2014 7 :34 AM EDT Supervision of other normal documented in this encounter Results * ANTIBODY SCREEN IGG (02/17/2014 7:34 AM EDT) ABSC IgG Int Negative [facility] Blood specimen (specimen) UPPER LIMB STRUCTURE / Unknown 02/17/2014 7:34 AM EDT 02/17/2014 7:34 AM EDT Kosta Hyman MD BLOOD BANK ORDERABLES Final Result Performing Organization Address City/[facility]/ZIP Co de Phone Number [facility] [address] [place] [address] * ABORH (02/17/2014 7:34 AM EDT) ABORh Int O NEG [facility] Blood specimen (specimen) UPPER LIMB STRUCTURE / Unknown 02/17/2014 7:34 AM EDT 02/17/2014 7:34 AM EDT us Kosta Hyman MD BLOOD BANK ORDERABLES Edited Result - Final Performing Organization Address [facility]/ZIP Co de Phone Number [facility] [address] [place] [address] documented in this encounter Visit Diagnoses Diagnosis Supervision of other normal - Primary documented in this encounter
--- OUTSIDE RECORDS SUMMARY | 2024-06-12 13:28 | XMS_ITS | Encounter Summary ---
Author Organization [place] Address [facility] [place] [address] Care Team Providers Care Torch Straightener Name Role Phone Unavailable Primary Care Provider Unavailabl e Reason for Referral * (Routine) - Closed Specialty Diagnoses / Procedures Referred By Pili t Referred To Contact Diagnoses Unspecified abnormality affecting management of mother, antepartum condition or complication Procedures PN US OB DETAIL ANATOMY SINGLE OR FIRST GESTATION Kosta Hyman MD [address] [place] [phone] Phone: tel: fax: Referral ID Status Reason Start Date Expiration Date Visits Re quested Visits Authorized [id number] Closed 01/13/2014 07/12/2014 1 1 Reason for Visit * Auth/Cert/Inpt - Closed Specialty Diagnoses / Procedures Referred By Pili t Referred To Contact Referral ID Status Reason Start Date Expiration Date Visits Re quested Visits Authorized [id number] Closed 1 1 Encounter Details Date Type Department Care Team (Latest Contact Info) Description 02/04/2014 12:44 PM EDT - 02/04/2014 11:59 PM EDT Hospital Encounter [facility] PERINATOLOGY [facility] [place] [address] Kosta Hyman MD [address] [place] [phone] Unspecified abnormality affecting management of mother, [...] Notes * Miscellaneous - Unknown, Unknown - 02/04/2014 2:58 PM EDT * Miscellaneous - Unknown, Unknown - 02/04/2014 2:37 PM EDT documented in this encounter Plan of Treatment Not on file documented as of this encounter Procedures Procedure Name Priority Date/Time Associated Diagnosis Comments PN US OB DETAIL ANATOMY SINGLE OR FIRST GESTATION Routine 02/04/2014 1:46 PM EDT Unspecified abnormality affecting management of mother, antepartum condition or complication documented in this encounter Results * PN US OB DETAIL ANATOMY SINGLE OR FIRST GESTATION (02/04/2014 1:46 PM EDT) Anatomical Region Laterality Modality Pelvis Ultrasound 02/04/2014 us Kosta Hyman MD IMG ORDERABLES Fin al Result documented in this encounter Visit Diagnoses Diagnosis Unspecified abnormality affecting management of mother, antepartum condition or complication documented in this encounter
[2024-06-12 13:44] VITALS: BP 112/79; PULSE 71; RESP 20; TEMP 36.7; O2SAT 100; BMI 28.0
[2024-06-12 13:55] LABS: UTC Influenza A Antigen Negative (Negative); UTC Influenza B Antigen Negative (Negative)
--- NOTE | 2024-06-12 14:11 | ED_ITS ---
Discharge Plan Prescriptions Prescriptions: No Action fluticasone propionate 50 mcg/actuation spray,suspension See Rx Instructions .ROUTE .COMPLEX Qty: 16 1RF Dose Instruction: 2 SPRAYS IN EACH NOSTRIL DAILY FOR ALLERGY SYMPTOMS Rx Instructions: 2 SPRAYS IN EACH NOSTRIL DAILY FOR ALLERGY SYMPTOMS azelastine 137 mcg (0.1 %) spray,non-aerosol 1 spray INTRANASAL DAILY Qty: 30 3RF omeprazole 20 mg capsule,delayed release(DR/EC) 20 mg PO DAILY fluoxetine 20 mg capsule 20 mg PO DAILY Serevent Diskus 50 mcg/dose blister with device 50 mcg INHALATION DIRECTED budesonide-formoterol [Symbicort] 160-4.5 mcg/actuation HFA aerosol inhaler 160 inh INHALATION DIRECTED Referrals Follow up/Referrals: Clem Schuler APRN [Primary Care Provider] - See instructions Activity Restrictions/Add. Instructions Additional Instructions/Restrictions: *Monitor Temp, Over the counter Motrin or Tylenol as directed/as needed Tylenol every 4 hours and Motrin every 6 hours (as long as your family doctor has told you that you can take it) for fever or pain. and straight to ER if unable to lower temp less than 101.0 after medication given *Warm salt water gargles may help to soothe the throat *Throat Lozenges? *Warm fluids like tea with honey may help to soothe the throat? *Sleep elevated *Humidifier/Vaporizer Follow up IMMEDIATELY for new or worsening symptoms or no Noticeable improvement over the next 48-72 hours. 911 for difficulty breathing or swallowing Clinical Impressions Clinical Impression: Viral upper respiratory infection Stand Alone Forms Stand Alone Forms: Work/School Release Instructions Patient Instructions: DI for Viral Upper Respiratory Infection -- Adult Print Language Print Language: Beninese Discharge ED Provider: Nely Bernal [facility] General Stated complaint: cough x3 days, diarhea Mode of Arrival: Ambulatory Source of Information: Patient Time Seen by Provider: 06/12/24 14:11 Description of Symptoms (Recalled from Triage Doc. by RN): COUGH X3 DAYS, DIARRHEA, BODY ACHES HEENT Symptoms (Recalled from RN notes): No Resp Symptoms (Recalled from RN notes): Yes Skin Symptoms (Recalled from RN notes): No MS Symptoms (Recalled from RN notes): No Functional Status (Recalled from RN notes): WNL History of Present Illness Provider Complaint: Patient states that she has had stuffy nose, cough and body aches for several days States that this morning she didnt feel good so she called into work States that she wants to get tested for the flu and needs a work note Related Data Home Medications ?Medication ?Instructions ?Recorded ?Confirmed fluoxetine 20 mg capsule 20 mg PO DAILY 03/09/24 06/12/24 omeprazole 20 mg capsule,delayed 20 mg PO DAILY 03/09/24 06/12/24 release budesonide-formoterol HFA 160 160 inh inhalation DIRECTED 06/12/24 06/12/24 mcg-4.5 mcg/actuation aerosol inhaler (Symbicort) salmeterol 50 mcg/dose blister 50 mcg inhalation DIRECTED 06/12/24 06/12/24 powder for inhalation (Serevent Diskus) Previous Rx's ?Medication ?Instructions ?Recorded fluticasone propionate 50 See Rx Instructions .Route 04/22/24 mcg/actuation nasal .COMPLEX #16 grams spray,suspension azelastine 137 mcg (0.1 %) nasal 1 spray intranasal DAILY #30 mL 06/06/24 spray Allergies Allergy/AdvReac Type Severity Reaction Status Date / Time No Known Allergies Allergy Verified 02/06/24 13:15 Worker's Comp Is this a Worker's Comp case?: No [facility] Disclaimer: The information contained in this section may have been updated after the patient was seen, as this information can be updated by other users. Medical History Abnormality of lung on chest x-ray COPD mixed type Thyroid Nodule Enlarged thyroid Hypertrophy of inferior nasal turbinate Eczematoid otitis externa of both ears Dyspnea on exertion Nocturnal cough with wheeze History of asthma Family history of asthma Allergic rhinitis Otitis externa Otitis media Viral syndrome Nausea & vomiting Gastroenteritis Vomiting Cellulitis Poison malcolm dermatitis Uterine bleeding, dysfunctional Pharyngitis 6 weeks follow-up Surgical History History of nasal surgery Family History Other Asthma COPD (chronic obstructive pulmonary disease) Diabetes Hypertension Social History (Updated 02/06/24 @ 13:33 by Kelle Oates) Smoking Status: Current every day smoker tobacco type: cigarettes packs per day: 1 second hand exposure: No alcohol intake: never substance use type: marijuana current occupational status: employed household members: family housing: house number of children: 6 current occupation: [employer] current occupational exposures/hazards: No caffeine: Yes ROS Obtained: Yes All systems reviewed & no additional complaints except as documented and Yes Systems reviewed as appropriate & no additional complaints except as documented Constitutional Constitutional: Reports system reviewed and no additional complaints, except as documented, Reports as per HPI, Reports body ache, Denies chills, Denies fever(s) and Denies headache(s) ENT Ears, Nose, Mouth, and Throat: Reports system reviewed and no additional complaints, except as documented, Reports as per HPI, Denies headache(s), Reports nasal congestion and Reports nasal discharge Cardiovascular Cardiovascular: Reports system reviewed and no additional complaints, except as documented and Reports as per HPI Respiratory Respiratory: Reports system reviewed and no additional complaints, except as documented, Reports as per HPI and Reports cough Gastrointestinal Gastrointestingal: Reports system reviewed and no additional complaints, except as documented and as per HPI Neurologic Neurologic: Denies headache(s) Physical Exam General General appearance: alert and in no apparent distress ENT ENT exam: Present normal exam, normal oropharynx, mucous membranes moist and TM's normal bilaterally Chest Chest inspection: Present normal inspection and symmetric chest wall rise Respiratory Respiratory exam: Present normal lung sounds bilaterally; Absent respiratory distress or wheezes Cardiovascular Cardiovascular exam: Present regular rate, normal rhythm and normal heart sounds Abdominal Exam Abdominal exam: Present soft and normal bowel sounds; Absent distention or tenderness Neurological Exam Neurological exam: Present alert, oriented X3 and normal gait Medical Decision Making Medical Records Screening: Per USPSTF and CDC recommendations, given the prevalence of disease in our region, it is our hospital?s policy to screen for HIV and viral Hepatitis for all patients aged 18 and over and those with ongoing risk factors. Tc Inquiry Pt receiving controlled substance: No Tc was queried for this patient: No Vital Signs: 06/12/24 13:44 Temperature 98.0 F Temperature Source Oral Pulse Rate [Left Radial] 71 Respiratory Rate 20 Blood Pressure [Left Arm] 112/79 Blood Pressure Mean [Left Arm] 90 02 Sat by Pulse Oximetry 100 Lab Data Lab results reviewed: Yes I reviewed the patient's lab results. Lab Results 06/12/24 13:47: Influenza Type A Ag Negative, Influenza Type B Ag Negative
[2024-06-12 14:19] VITALS: BP 112/79; PULSE 71; RESP 20; TEMP 36.7
== END 2024-06-12 14:22 | disposition home or self-care (01) ==
LOC: UTC 13:26
PROVIDERS: Emergency Provider Nurse Practitioner; PCP Nurse Practitioner Family
DX: J06.9 Acute upper respiratory infection, unspecified (principal); R09.81 Nasal congestion
CPT/HCPCS: 87804; 99212; G0381

== ENCOUNTER 2024-09-30 09:13 | Emergency (ER) | payer MEDICAID, SELFPAY ==
[2024-09-30] VITALS (7 sets, daily range): BP systolic 116–126; BP diastolic 78–93; PULSE 64–85; RESP 14; TEMP 36.6–36.7; O2SAT 96–99; BMI 26.6
--- NOTE | 2024-09-30 09:28 | XR_ITS ---
FINAL REPORT CLINICAL HISTORY: Cough, fever FINDINGS: CHEST 2 VIEWS PA AND LATERAL The heart is normal in size. The mediastinum is unremarkable. The lungs are clear. There is no pneumothorax. IMPRESSION: No acute process. Reviewed, Interpreted and Dictated by Jean Gamble MD Transcribed by Shaina Coronado Authenticated and [facility]
[2024-09-30] MEDS: ACETAMINOPHEN 500MG TAB 1000 MG PO (09:33)
[2024-09-30] MEDS: IBUPROFEN 600 MG TABLET PO (09:33)
--- NOTE | 2024-09-30 09:37 | ED_ITS ---
Discharge Plan Disposition Patient Disposition: Home, Self-Care Condition: Good Prescriptions Prescriptions: No Action fluticasone propionate 50 mcg/actuation spray,suspension See Rx Instructions .ROUTE .COMPLEX Qty: 16 1RF Dose Instruction: 2 SPRAYS IN EACH NOSTRIL DAILY FOR ALLERGY SYMPTOMS Rx Instructions: 2 SPRAYS IN EACH NOSTRIL DAILY FOR ALLERGY SYMPTOMS azelastine 137 mcg (0.1 %) spray,non-aerosol 1 spray INTRANASAL DAILY Qty: 30 3RF omeprazole 20 mg capsule,delayed release(DR/EC) 20 mg PO DAILY fluoxetine 20 mg capsule 20 mg PO DAILY Serevent Diskus 50 mcg/dose blister with device 50 mcg INHALATION DIRECTED budesonide-formoterol [Symbicort] 160-4.5 mcg/actuation HFA aerosol inhaler 160 inh INHALATION DIRECTED Referrals Follow up/Referrals: Clem Schuler APRN [Primary Care Provider] - See instructions Activity Restrictions/Add. Instructions Additional Instructions/Restrictions: You can take Tylenol and ibuprofen every 6 hours as needed to help with symptoms. Follow-up with your primary care physician if symptoms do not improve. If you develop any new or worsening symptoms, or become concerned for your health for any reason, return to the emergency department for evaluation Clinical Impressions Clinical Impression: Viral respiratory illness Stand Alone Forms Stand Alone Forms: Work/School Release Print Language Print Language: Lithuanian Discharge ED Provider: Hasmukh Almeida Adult HPI General Chief complaint: Upper Respiratory Infection Stated complaint: chest congestion, runny nose, back pain, chills Time Seen by Provider: 09/30/24 09:23 Mode of Arrival: Ambulatory Source of Information: Patient Description of Symptoms (Recalled from ER Triage Doc. by RN): patient states she has had lower back pain, runny nose, chills for 4 days History of Present Illness HPI narrative: Elena Fang is a 43y female with a past medical history of anxiety, obesity, hypertension who presents to the emergency department for 4 days of nasal congestion, runny nose, chills with subjective fever at home as well as left- sided lower back pain. Patient states that she works at [employer] and believes that there have been viral illnesses going around that she believes she may have caught something. She states that the pain in her left lower back is sharp in nature but she denies any dysuria or hematuria. She denies any abdominal pain. She denies any nausea or vomiting. She reports some nasal congestion and mild shortness of breath and cough. She denies any chest pain. Related Data Home Medications ?Medication ?Instructions ?Recorded ?Confirmed fluoxetine 20 mg capsule 20 mg PO DAILY 03/09/24 09/30/24 omeprazole 20 mg capsule,delayed 20 mg PO DAILY 03/09/24 09/30/24 release budesonide-formoterol HFA 160 160 inh inhalation DIRECTED 06/12/24 09/30/24 mcg-4.5 mcg/actuation aerosol inhaler (Symbicort) salmeterol 50 mcg/dose blister 50 mcg inhalation DIRECTED 06/12/24 09/30/24 powder for inhalation (Serevent Diskus) Previous Rx's ?Medication ?Instructions ?Recorded fluticasone propionate 50 See Rx Instructions .Route 04/22/24 mcg/actuation nasal .COMPLEX #16 grams spray,suspension azelastine 137 mcg (0.1 %) nasal 1 spray intranasal DAILY #30 mL 06/06/24 spray Allergies Allergy/AdvReac Type Severity Reaction Status Date / Time No Known Allergies Allergy Verified 09/30/24 09:48 [facility] Disclaimer: The information contained in this section may have been updated after the patient was seen, as this information can be updated by other users. Medical History Abnormality of lung on chest x-ray COPD mixed type Thyroid Nodule Enlarged thyroid Hypertrophy of inferior nasal turbinate Eczematoid otitis externa of both ears Dyspnea on exertion Nocturnal cough with wheeze History of asthma Family history of asthma Allergic rhinitis Otitis externa Otitis media Viral syndrome Nausea & vomiting Gastroenteritis Vomiting Cellulitis Poison malcolm dermatitis Uterine bleeding, dysfunctional Pharyngitis 6 weeks follow-up Surgical History History of nasal surgery Family History Other Asthma COPD (chronic obstructive pulmonary disease) Diabetes Hypertension Social History (Updated 06/12/24 @ 14:17 by Nely Bernal APRN) Smoking Status: Current every day smoker tobacco type: cigarettes packs per day: 1 second hand exposure: No alcohol intake: never substance use type: marijuana current occupational status: employed Travel in the last 8 weeks: None household members: family housing: house number of children: 6 current occupation: [employer] current occupational exposures/hazards: No caffeine: Yes Have you lived/traveled outside US in past 30 days?: No Contact w/someone who lives/traveled outside US past 30 days?: No Exposure to someone with infectious disease in past 14 days?: No Do you have a fever (greater than 100.4 F or 38 C)?: No Have you tested positive for COVID-19: No Exposed to someone with COVID-19 in past 14 days?: No Do you have a sore throat?: No Do you have a cough?: No Do you have any weakness?: No Do you have any diarrhea?: No Are you experiencing any unusual bleeding?: No Do you have any muscle aches/pain?: No Do you have any abdominal pain?: No Are you experiencing loss of taste or smell?: No Other Medical History Have you received the Flu Vaccine for this season: Yes Have you received the Pneumonia Vaccine: No ROS Obtained: Yes Systems reviewed as appropriate & no additional complaints except as documented Physical Exam General General appearance: alert, in no apparent distress and obese Comment: Ill but nontoxic appearing Head Head exam: atraumatic Eye Eye exam: Present normal appearance ENT ENT exam: Present normal external ear exam Neck Neck exam: Present full ROM Chest Chest inspection: Present symmetric chest wall rise Respiratory Respiratory exam: Present normal lung sounds bilaterally; Absent respiratory distress Cardiovascular Cardiovascular exam: Present regular rate and normal rhythm Abdominal Exam Abdominal exam: Present soft; Absent distention, tenderness or guarding Extremities Exam Extremities exam: Present normal inspection Back Exam Back exam: Present normal inspection and paraspinal tenderness (left lumbar); Absent CVA tenderness (R) or CVA tenderness (L) Neurological Exam Neurological exam: Present alert and oriented X3 Psychiatric Psychiatric exam: Present normal affect Skin Skin exam: Present warm and dry Medical Decision Making Medical Records Screening: Per USPSTF and CDC recommendations, given the prevalence of disease in our region, it is our hospital?s policy to screen for HIV and viral Hepatitis for all patients aged 18 and over and those with ongoing risk factors. Tc Inquiry Pt receiving controlled substance: No Vital Signs: 09/30/24 09:19 09/30/24 10:01 09/30/24 10:15 Temperature 98.1 F Temperature Source Oral Pulse Rate 81 80 Pulse Rate [Right] 80 Respiratory Rate 14 Blood Pressure 125/93 H 126/84 Blood Pressure [Right Arm] 120/85 Blood Pressure Mean [Right Arm] 96 Blood Pressure Source Blood Pressure Source [Right Arm] Automatic Cuff Blood Pressure Position Blood Pressure Position [Right Arm] Sitting 02 Sat by Pulse Oximetry 99 98 98 Oxygen Delivery Method Room Air Room Air 09/30/24 10:30 09/30/24 10:45 09/30/24 10:46 Temperature Temperature Source Pulse Rate 83 81 85 Pulse Rate [Right] Respiratory Rate Blood Pressure 126/80 117/78 Blood Pressure [Right Arm] Blood Pressure Mean [Right Arm] Blood Pressure Source Blood Pressure Source [Right Arm] Blood Pressure Position Blood Pressure Position [Right Arm] 02 Sat by Pulse Oximetry 98 98 96 Oxygen Delivery Method Room Air 09/30/24 11:56 Temperature 98 F Temperature Source Oral Pulse Rate 64 Pulse Rate [Right] Respiratory Rate 14 Blood Pressure 116/78 Blood Pressure [Right Arm] Blood Pressure Mean [Right Arm] Blood Pressure Source Automatic Cuff Blood Pressure Source [Right Arm] Blood Pressure Position Sitting Blood Pressure Position [Right Arm] 02 Sat by Pulse Oximetry Oxygen Delivery Method Room Air Lab Data Lab Results 09/30/24 09:18: SARS-CoV-2 (PCR) Not detected, Influenza A Untype (PCR) Not detected, Influenza Type B (PCR) Not detected 09/30/24 09:32: Urine Color Yellow, Urine Appearance Clear, Urine pH 6.0, Ur Specific Vivian 1.025, Urine Protein 30, Urine Glucose (UA) Negative, Urine Ketones Trace, Urine Blood Negative, Urine Nitrate Negative, Urine Bilirubin Trace, Urine Urobilinogen 0.2, Ur Leukocyte Esterase Trace A, Urine RBC Occasional, Urine WBC Occasional, Ur Squamous Epith Cells 5-10 Orders (Tests/Meds): ED MEDICATIONS Discontinued Medications Generic Name Dose Route Start Last Admin Trade Name Freq PRN Reason Stop Dose Admin Acetaminophen 1,000 mg 09/30/24 09:29 09/30/24 09:33 Acetaminophen 500mg Tab PO 09/30/24 09:30 1,000 mg ONCE ONE Administration Ibuprofen 600 mg 09/30/24 09:29 09/30/24 09:33 Ibuprofen 600 Mg Tablet PO 09/30/24 09:30 600 mg ONCE ONE Administration ORDERS Category Date Time Status CXR 2 view (NOT portable) [XR chest 2V] Stat Exams 09/30/24 09:28 Completed Rapid PCR Covid and Flu A/B Stat Lab 09/30/24 09:18 Completed UA [Urinalysis and Microscopic] Stat Lab 09/30/24 09:32 Completed Urine Culture Stat Micro 09/30/24 09:32 Received Medical Decision Narrative: Elena Fang is a 43y female with a past medical history of anxiety, obesity, hypertension who presents to the emergency department for 4 days of nasal congestion, runny nose, chills with subjective fever at home as well as left- sided lower back pain. Patient states that she works at [employer] and believes that there have been viral illnesses going around that she believes she may have caught something. She states that the pain in her left lower back is sharp in nature but she denies any dysuria or hematuria. She denies any abdominal pain. She denies any nausea or vomiting. She reports some nasal congestion and mild shortness of breath and cough. She denies any chest pain. On arrival, patient is normotensive, afebrile, heart rate within normal limits, breathing comfortably on room air with oxygen saturation at 99% SpO2. Physical exam, stated above, revealed an ill but nontoxic appearing female in no distress. She has some nasal congestion but lung sounds are clear with no cardiac murmurs. Abdomen is soft, nontender nondistended. She has no CVA tenderness bilaterally but has some left lumbar paraspinal muscle tenderness. Differential diagnosis includes, but is not limited to: Viral respiratory illness, sinusitis, urinary tract infection, pneumonia, among others. Workup in the emergency department included: Rapid COVID/flu testing, two-view chest x-ray, urinalysis. Patient was given Tylenol and ibuprofen p.o. for symptomatic relief. Chest x-ray interpreted by me personally prior to official radiology read and demonstrated no focal consolidation, no pneumothorax, no pulmonary effusion, no widening of the mediastinum or pneumomediastinum. See radiology report for final details Viral testing demonstrated negative flu/COVID testing. Urinalysis demonstrated trace leukocytes but nitrite negative and occasional white blood cells. No evidence of UTI at this time. Is felt the patient symptomatology is most likely viral in nature she is appropriate for discharge at this time with symptomatic treatment at home with Tylenol and ibuprofen and hydration. Return precautions were given. She was also instructed to follow with her primary care physician if symptoms do not improve. All questions were answered. She demonstrated understanding and was agreed with this plan. She was then discharged from the emergency department in stable condition. Critical Care Critical Care Time Critical Care Time: No
[2024-09-30 09:40] LABS: Microscopic, Urine URINE MICROSCOPIC (MICROSCOPIC)
[2024-09-30 09:52] LABS: Appearance,Urine Clear (Clear); Color,Urine Yellow (Yellow); Specific Gravity, Urine 1.025 (1.005-1.030)
[2024-09-30 09:53] LABS: Bilirubin,Urine Trace (Negative); Blood, Urine Negative (Negative); Glucose,Urine (UA) Negative (Negative); Ketones,Urine Trace (Negative); Leukocyte Esterase,Urine Trace (Negative); Nitrate,Urine Negative (Negative); Protein,Urine 30 (Negative); RBC,Urine Occasional #/hpf (0-3); Urobilinogen,Urine 0.2 EU/dl (0.2)
[2024-09-30 09:56] LABS: WBC,Urine Occasional #/hpf (0-3)
[2024-09-30 10:26] LABS: Coronavirus 19, PCR Not Detected (NotDetected); Influenza A, PCR Not Detected (NotDetected); Influenza B, PCR Not Detected (NotDetected)
== END 2024-09-30 11:57 | disposition home or self-care (01) ==
PROVIDERS: Emergency Provider Student in an Organized Health Care Education/Training Program; PCP Nurse Practitioner Family
DX: J98.8 Other specified respiratory disorders (principal); M54.50 Low back pain, unspecified; R09.81 Nasal congestion; R50.9 Fever, unspecified; R09.89 Other specified symptoms and signs involving the circulatory and respiratory systems; R05.9 Cough, unspecified; R06.02 Shortness of breath; F17.210 Nicotine dependence, cigarettes, uncomplicated; Z20.828 Contact with and (suspected) exposure to other viral communicable diseases
CPT/HCPCS: 71046; 81001; 87086; 87636; 99283

== ENCOUNTER 2025-05-26 09:46 | Emergency (ER) | payer SELFPAY ==
--- NOTE | 2025-05-26 09:49 | ED_ITS ---
Discharge Plan Disposition Patient Disposition: Home, Self-Care Condition: Good Prescriptions Prescriptions: New albuterol sulfate [Ventolin HFA] 90 mcg/actuation HFA aerosol inhaler 1 inh inhalation Q6H PRN (Reason: shortness of breath or wheezing) Qty: 6.7 0RF azithromycin 250 mg tablet See Rx Instructions .ROUTE .COMPLEX Qty: 6 0RF Rx Instructions: For 250 mg dose pack: take 500 mg today (day 1), then 250 mg for 4 days (days 2-5) prednisone 5 mg tablets,dose pack 5 mg PO DIRECTED Qty: 21 0RF Rx Instructions: see taper instructions amoxicillin-pot clavulanate [Augmentin] 500-125 mg tablet 1 tab PO BID Qty: 14 0RF No Action ondansetron 4 mg tablet,disintegrating 4 mg PO Q8H PRN (Reason: nausea and vomiting) Qty: 7 0RF fluticasone propionate 50 mcg/actuation spray,suspension See Rx Instructions .ROUTE .COMPLEX Qty: 16 1RF Dose Instruction: 2 SPRAYS IN EACH NOSTRIL DAILY FOR ALLERGY SYMPTOMS Rx Instructions: 2 SPRAYS IN EACH NOSTRIL DAILY FOR ALLERGY SYMPTOMS azelastine 137 mcg (0.1 %) spray,non-aerosol 1 spray INTRANASAL DAILY Qty: 30 3RF omeprazole 20 mg capsule,delayed release(DR/EC) 20 mg PO DAILY fluoxetine 20 mg capsule 20 mg PO DAILY Serevent Diskus 50 mcg/dose blister with device 50 mcg INHALATION DIRECTED budesonide-formoterol [Symbicort] 160-4.5 mcg/actuation HFA aerosol inhaler 160 inh INHALATION DIRECTED Referrals Follow up/Referrals: Clem Schuler APRN [Primary Care Provider, Family Practice] - See instructions Activity Restrictions/Add. Instructions Additional Instructions/Restrictions: You were seen in the emergency department for cough and congestion. We believe that you have a mild pneumonia. Please take the medications above as prescribed. If symptoms worsen, or fail to improve, please follow-up with your primary care provider or here in the emergency department. Clinical Impressions Clinical Impression: Pneumonia Instructions Patient Instructions: DI for Pneumonia in Adults Print Language Print Language: Turkmen Discharge ED Provider: Santo Mahoney General Adult HPI General Chief complaint: Upper Respiratory Infection Stated complaint: congestion, cough Time Seen by Provider: 05/26/25 09:49 History of Present Illness HPI narrative: This patient is a 44-year-old female with past medical history of COPD who presents to the emergency department with 3 days of sinus congestion, increased cough, malaise. Patient reports that her is also currently ill with similar symptoms. She endorses sinus congestion and pressure, more frequent and more productive cough, and increased exertional shortness of breath. In the emergency department today she is not tachycardic, satting at 100% on room air, and mildly hypertensive. She is afebrile and has reduced breath sounds bilaterally with mild wheezing. Related Data Home Medications ?Medication ?Instructions ?Recorded ?Confirmed fluoxetine 20 mg capsule 20 mg PO DAILY 03/09/2410/13 omeprazole 20 mg capsule,delayed 20 mg PO DAILY 05/24/25 release budesonide-formoterol HFA 160 160 inh inhalation DI RECTED 06/12/24 05/24/25 mcg-4.5 mcg/actuation aerosol inhaler (Symbicort) salmeterol 50 mcg/dose blister 50 mcg inhalation DI RECTED 06/12/24 05/24/25 powder for inhalation (Serevent Diskus) Previous Rx's ?Medication ?Instructions ?Recorded fluticasone propionate 50 See Rx Instructions .Route 1 mcg/actuation nasal .COMPLEX #16 grams spray,suspension azelastine 137 mcg (0.1 %) nasal 1 spray intranasal DA KELLY #30 mL 06/06/24 spray ondansetron 4 mg disintegrating 4 mg PO Q8H PRN nausea and 02/08/25 tablet vomiting #7 tabs albuterol sulfate 90 mcg/actuation 1 inh inhalation Q6 H PRN shortness 05/26/25 aerosol inhaler (Ventolin HFA) of breath or wheezing # 6.7 grams amoxicillin 500 mg-potassium 1 tab PO BID #14 tabs 12/13 clavulanate 125 mg tablet (Augmentin) azithromycin 250 mg tablet See Rx Instructions PO .COM PLEX #6 05/26/25 tabs prednisone 5 mg tablets in a dose 5 mg PO DIRECTED #21 tabs 05/26/25 pack Allergies Allergy/AdvReac Type Severity Reaction Status Date / Time No Known Allergies Allergy Verified 05/24/25 14:16 [facility] Disclaimer: The information contained in this section may have been updated after the patient was seen, as this information can be updated by other users. Medical History (Updated 05/26/25 @ 10:24 by Santo Mahoney MD) Viral upper respiratory infection Menstrual cramps Nausea vomiting and diarrhea Abnormality of lung on chest x-ray COPD mixed type Thyroid Nodule Enlarged thyroid Hypertrophy of inferior nasal turbinate Eczematoid otitis externa of both ears Dyspnea on exertion Nocturnal cough with wheeze History of asthma Family history of asthma Allergic rhinitis Otitis externa Otitis media Viral syndrome Nausea & vomiting Gastroenteritis Vomiting Cellulitis Poison malcolm dermatitis Uterine bleeding, dysfunctional Pharyngitis 6 weeks follow-up Surgical History History of nasal surgery Family History Other Asthma COPD (chronic obstructive pulmonary disease) Diabetes Hypertension Social History Smoking Status: Current every day smoker tobacco type: cigarettes packs per day: 1 second hand exposure: No alcohol intake: never substance use type: marijuana current occupational status: employed Travel in the last 8 weeks?: None household members: family housing: house number of children: 6 current occupation: [employer] current occupational exposures/hazards: No caffeine: Yes Have you lived/traveled outside US in past 30 days?: No Contact w/someone who lives/traveled outside US past 30 days?: No Exposure to someone with infectious disease in past 14 days?: No Do you have a fever (greater than 100.4 F or 38 C)?: No Have you tested positive for COVID-19?: No Exposed to someone with COVID-19 in past 14 days?: No Do you have a sore throat?: No Do you have a cough?: No Do you have any weakness?: No Do you have any diarrhea?: No Are you experiencing any unusual bleeding?: No Do you have any muscle aches/pain?: No Do you have any abdominal pain?: No Are you experiencing loss of taste or smell?: No Other Medical History Have you received the Flu Vaccine for this season: Yes Have you received the Pneumonia Vaccine: No ROS Obtained: Yes All systems reviewed & no additional complaints except as documented Physical Exam General General appearance: alert and in no apparent distress Head Head exam: atraumatic and normocephalic Eye Eye exam: Present normal appearance, PERRL and EOMI ENT ENT exam: Present normal exam and normal external ear exam Neck Neck exam: Present normal inspection, full ROM and trachea midline Chest Chest inspection: Present normal inspection and symmetric chest wall rise; Absent tenderness Respiratory Respiratory exam: Present wheezes and prolonged expiratory phase Cardiovascular Cardiovascular exam: Present regular rate, normal rhythm and other (appears warm and well perfused) Abdominal Exam Abdominal exam: Absent distention or tenderness Extremities Exam Extremities exam: Present normal inspection and full ROM Neurological Exam Neurological exam: Present alert and oriented X3 Psychiatric Psychiatric exam: Present normal affect Skin Skin exam: Present warm and dry Medical Decision Making Medical Records Medical records reviewed: Yes I reviewed the patient's medical records. Screening: Per USPSTF and CDC recommendations, given the prevalence of disease in our region, it is our hospital?s policy to screen for HIV and viral Hepatitis for all patients aged 18 and over and those with ongoing risk factors. Tc Inquiry Pt receiving controlled substance: No Tc was queried for this patient: No Vital Signs: 05/26/25 09:53 Temperature 98.5 F Temperature Source Oral Pulse Rate [Right] 82 Respiratory Rate 18 Blood Pressure [Right Arm] 151/105 H Blood Pressure Mean [Right Arm] 120 Blood Pressure Source [Right Arm] Automatic Cuff Blood Pressure Position [Right Arm] Sitting 02 Sat by Pulse Oximetry 100 Oxygen Delivery Method Room Air Lab Data Lab results reviewed: Yes I reviewed the patient's lab results. Lab Results 05/26/25 09:52: SARS-CoV-2 (PCR) Not detected, Influenza A Untype (PCR) Not detected, Influenza Type B (PCR) Not detected Orders (Tests/Meds): ORDERS Category Date Time Status Chest XR -- portable [XR chest portable] Stat Exams 05/26/25 09:59 Taken Rapid PCR Covid and Flu A/B Stat Lab 05/26/25 09:52 Completed Medical Decision Narrative: MDM In summary, this 44-year-old female presents to the emergency department today with cough, congestion. Initial evaluation the patient comfortable, hemodynamically stable. Differential diagnosis includes but is not limited to flu, COVID, RSV, pneumonia, COPD exacerbation, sinusitis. Based on these concerns, I ordered chest x-ray, viral panel. The patient had no chest pain, no tachycardia, no abdominal pain, we felt the likelihood of significant cardiac pathology was low and so we made the decision to not perform a cardiac workup. Similarly the patient had no leg swelling, no tachycardia, and physical exam findings concerning for COPD exacerbation and so we felt that pulmonary embolism was unlikely. Viral panel personally interpreted by me showed no flu, no COVID, no RSV. Chest x-ray personally interpreted by me showed small left-sided opacity concerning for pneumonia verse chronic inflammation. Based on the patient's worsening symptoms I felt it was pertinent to treat the patient both for COPD exacerbation and for pneumonia. The patient was comfortable with this plan and verbalized understanding of return precautions. I encouraged her to follow-up with her PCP to obtain better daily treatment for COPD in the future. Critical Care Critical Care Time Critical Care Time: No
[2025-05-26 09:53] VITALS: BP 151/105; PULSE 82; RESP 18; TEMP 36.9; O2SAT 100; BMI 33.6
--- NOTE | 2025-05-26 09:58 | PC.NURSE ---
Pt noted to have nasal congestion, and a nonproductive cough
[2025-05-26 09:59] LABS: Coronavirus 19, PCR Not Detected (NotDetected); Influenza A, PCR Not Detected (NotDetected); Influenza B, PCR Not Detected (NotDetected)
--- NOTE | 2025-05-26 09:59 | XR_ITS ---
FINAL REPORT CLINICAL HISTORY: cough, concern for pneumonia FINDINGS: A portable view of the chest was obtained. Cardiac and mediastinal silhouettes are within normal limits. The lungs are clear. There is no pleural effusion or pneumothorax. IMPRESSION: No acute process on this portable exam. Reviewed, Interpreted and Dictated by Corinna Mendez MD Transcribed by Shaina Coronado Authenticated and [facility]
--- OUTSIDE RECORDS SUMMARY | 2025-05-26 10:10 | XMS_ITS | Clinical Summary ---
Author Organization [facility] Address [address] [place] [address] Phone Care Team Providers Care Local Sales Manager Name Role Phone Unavailable Primary Care Provider [...] of Delivery Comme nts Yes 06/07/2017 Immunizations Immunization Administration Dates Next Due Influenza Seasonal Injectable [...] L,KRI STY BOY A Lisa Richard, Delivery Location:[facility] 014 Term 39w 3d 6 lb 10 oz (3.005 kg) M Vag-S pont Livin g 9 9 MARY L,KRI STY BOY A Nely Boswell, CN Delivery Location:[facility] Comments:none Current Last Filed Vital Signs Vital Sign Reading Time Taken Comments Blood Pressure 90/52 03/26/2017 1:19 PM EDT Pulse 85 03/26/2017 1:19 PM EDT Temperature 36.9 C (98.5 F) 03/26/2017 1:19 PM EDT Respiratory Rate 18 04/15/2014 2:48 PM EDT Oxygen Saturation 98% 03/26/2017 1:19 PM EDT Inhaled Oxygen Concentration - - Weight 67.1 kg (148 lb) 03/26/2017 1:19 PM EDT Height 172.7 cm (5' 8 ) 03/26/2017 1:19 PM EDT Body Mass Index 22.5 03/26/2017 1:19 PM EDT Plan of Treatment Health Maintenance Due Date Last Done Comments Annual Wellness Exam 11/28/1982 Hepatitis B Vaccine (1 of 3 - 19+ 3-dose series) 11/28/1998 Cervical Cancer Screening 11/28/2000 Pap Smear 11/28/2000 HPV/Pap Cotest 11/28/2009 Breast Cancer Screening 2019 DTaP/TDaP/Td (3 - Td or Tdap) 02/18/2024, 05/20/2013 Cologuard 11/28/2024 Colon Cancer Screening 11/28/2024 Colonoscopy 11/28/2024 FIT 11/28/2024 Sigmoidoscopy 11/28/2024 Virtual Colonography 11/28/2024 COVID-19 Vaccine (1 - 2024-2 6 season) 2025 Influenza Vaccine (#1) 2025 04/15/2014 RSV or 60+ (1 - 1-dose 75+ series) 11/28/2054 Meningococcal B Vaccine Aged Out No l onger eligible based on patient's age to complete this topic Pneumococcal Vaccine 0-49 Aged Out No longer eligible based on patient's age to complete this topic Goals Goal Patient Goal Type Associated Problems Recent Progress Patient-Stated? Author Maintain a healthy diet, exercise regularly and maintain an ideal body weight General No Nimco Alejandra RMA Stay Tobacco Free Lifestyle No Nimco Alejandra RMA [place] [address] [place] [id number] [address] [facility] [id number] MDR Advance Directives For more information, please contact: [phone] * Full Code (Latest Code Status on File) Date Activated Date Inactivated Comments 04/14/2014 3:26 PM 04/16/2014 12:16 AM * Full Code Date Activated Date Inactivated Comments 05/20/2013 2:30 AM 05/21/2013 6:37 PM
--- OUTSIDE RECORDS SUMMARY | 2025-05-26 10:10 | XMS_ITS | Patient Health Record ---
Author Organization [facility] Address [address] [place] [address] Care Team Providers Care Doctor Of Audiology Name Role Phone Pily Martinez Primary Care Provider [phone] Allergies No Known Allergies Reason For Referral No Information Medications Medication SIG (Take, Route, Fr equency, Duration) Notes Start Date End Date Status Melatonin Active Venlafaxine HCl Acti ve Zoloft Active Famotidine Active Vivitrol 380 MG 4 ml Intramuscular e very 4 weeks; Duration: 28 days 07/04/2022 Active Vitamin D Active Vistaril Active Remeron Active Problems Problem Type SNOMED Code ICD Code Onset Dates Problem Status W/U Status Risk Notes Problem Alcohol dependence (41427986) Uncomplicated alcohol dependence (F10.20) Active confirmed Problem Opioid dependence (71012347) Uncomplicated opioid dependence (F11.20) Active confirmed Plan Of Treatment No Information Insurance Providers Payer Name Payer Address Payer Phone Subscriber Number Group Number Insured Name Patient Relationship to Insured Coverage Start Date Coverage End Date [employer] [facility] [address] [address] [place] [phone] [id number] Elena Fang Self - patient is the insured 2 Medical (General) History Medical History History ICD Code Arthritis back/disc disease asthma chronic obstructive pulmonary disease (C OPD) Surgical History Surgery Date(Month/Year) excision of blockage rt side of nose 5 y ears ago
[2025-05-26 10:43] VITALS: BP 149/100; PULSE 76; RESP 16; TEMP 36.9; O2SAT 100
== END 2025-05-26 10:44 | disposition home or self-care (01) ==
PROVIDERS: Emergency Provider Student in an Organized Health Care Education/Training Program; PCP Nurse Practitioner Family
DX: J18.9 Pneumonia, unspecified organism (principal); J44.0 Chronic obstructive pulmonary disease with (acute) lower respiratory infection; R09.81 Nasal congestion; F17.210 Nicotine dependence, cigarettes, uncomplicated
CPT/HCPCS: 71045; 87636; 99283